=== PATIENT | female | born 1975 | race Caucasian/White ===

== ENCOUNTER 2016-04-18 22:28 | Emergency (ER) | payer OTHER ==
[2016-04-18] MEDS ORDERED: BENADRYL 50 MG/ML IV ONE ×2 (22:41→23:24)
[2016-04-18] MEDS ORDERED: solu-MEDROL 125 MG IV ONE (22:41)
[2016-04-18] MEDS ORDERED: solu-MEDROL 125 MG ONE (22:45)
[2016-04-18] MEDS ORDERED: BENADRYL 50 MG/ML ONE ×2 (22:45→23:38)
--- NOTE | 2016-04-18 22:48 | ERPHSYRPT ---
- History of Present Illness Time Seen by Provider: 04/18/16 22:35 Source: patient Exam Limitations: no limitations Patient Subjective Stated Complaint: "i started breaking out on monday. we have been cutting fire wood and think that i am reacting to something. today, i started having trouble breathing and feeling like throat is tight. so my made me come in" Triage Nursing Assessment: aox3, breathing unlabored, lungs clear a&p bilat, able to speak in complete setences, voice horse, skin pink warm dry with redness noted to face and swelling, red raides rash noted to upper chest, steady gait Physician History: 2 DAYS AGO PT WAS CUTTING FIREWOOD IN THE BACK YARD AND THE FOLLOWING DAY STARTED WITH A PRURITIC RASH ON THE FACE AND UPPER EXTREMITIES. 2 HOURS AGO PT STARTED WITH SHORTNESS OF AIR, HOARSENESS AND TIGHTNESS IN THE NECK. PT DENIES ABDOMINAL PAIN, NAUSEA, VOMITING, FEVER, CHEST PAIN. Allergies/Adverse Reactions: Sulfa (Sulfonamide Antibiotics) Allergy (Verified 04/18/16 22:34) seizure med? Allergy (Uncoded 03/09/16 15:17) Home Medications: Glipizide 5 mg [Glucotrol 5 MG] 5 mg PO UD 07/25/14 [History] Metformin HCl 1000 mg [Glucophage 1000 MG] 1,000 mg PO BID 07/25/14 [History] Sitagliptin Phosphate [Januvia] 100 mg PO HS 10/07/14 [History] Topiramate 100 mg [Topamax 100 MG] 200 mg PO BID 10/07/14 [History] Cetirizine HCl [Zyrtec] 10 mg PO DAILY 04/18/16 [History] Hx Tetanus, Diphtheria Vaccination/Date Given: Yes Hx Influenza Vaccination/Date Given: No Hx Pneumococcal Vaccination/Date Given: No - Review of Systems Constitutional: No Fever Ears, Nose, & Throat: Hoarse, Other (TIGHTNESS IN THE NECK) Respiratory: Dyspnea Abdominal/Gastrointestinal: No Abdominal Pain, No Nausea, No Vomiting Skin: Rash All Other Systems: Reviewed and Negative - Past Medical History Pertinent Past Medical History: Yes Neurological History: Seizures ENT History: No Pertinent History Cardiac History: Other Respiratory History: No Pertinent History Endocrine Medical History: Diabetes Type II Musculoskeletal History: No Pertinent History GI Medical History: No Pertinent History History: No Pertinent History Psycho-Social History: No Pertinent History Female Reproductive Disorders: No Pertinent History Other Medical History: heart murmer - Past Surgical History Past Surgical History: Yes Neuro Surgical History: No Pertinent History Cardiac: No Pertinent History Respiratory: No Pertinent History Gastrointestinal: Cholecystectomy Genitourinary: No Pertinent History Musculoskeletal: No Pertinent History Female Surgical History: Section Other Surgical History: c-sec x2 - Social History Smoking Status: Never smoker Exposure to second hand smoke: No Drug Use: none Patient Lives Alone: No - Female History Hx Last Menstrual Period: 04/05/16 - Nursing Vital Signs Nursing Vital Signs: Initial Vital Signs Temperature 98.0 F Temperature Source Oral Pulse Rate 94 Respiratory Rate 12 Blood Pressure [Right Arm] 111/79 Pain Intensity 6 - Physical Exam General Appearance: alert Eye Exam: PERRL/EOMI Ears, Nose, Throat Exam: TMs normal, pharynx normal, moist mucous membranes, other (VOICE HOARSE) Neck Exam: full range of motion Respiratory Exam: lungs clear Cardiovascular Exam: normal heart sounds Gastrointestinal/Abdomen Exam: soft, normal bowel sounds Back Exam: normal range of motion Extremity Exam: No swelling Neurologic Exam: alert, cooperative Skin Exam: rash (ERYTHEMATOUS MACULOPAPULAR RASH OVER THE UPPER EXTREMITIES, FACE AND NECK.) SpO2 Interpretation: normal SpO2: 97 Oxygen Delivery: Room Air - Course Nursing assessment & vital signs reviewed: Yes Ordered Tests: Active Orders 24 hr Category Date Time Status IV Insertion STAT Care 04/18/16 22:41 Active Respiratory Nebulizer STAT RT 04/18/16 23:25 Completed Medication Summary Discontinued Medications Generic Name Dose Route Start Last Admin Trade Name Butchq PRN Reason Stop Dose Admin Diphenhydramine HCl 50 mg 04/18/16 22:41 04/18/16 22:46 Benadryl 50 Mg/Ml IV 04/18/16 22:42 50 mg STAT ONE Administration Diphenhydramine HCl Confirm 04/18/16 22:45 Benadryl 50 Mg/Ml Administered 04/18/16 22:46 Dose 50 mg .ROUTE .STK-MED ONE Diphenhydramine HCl 50 mg 04/18/16 23:24 04/18/16 23:40 Benadryl 50 Mg/Ml IV 04/18/16 23:25 50 mg STAT ONE Administration Diphenhydramine HCl Confirm 04/18/16 23:38 Benadryl 50 Mg/Ml Administered 04/18/16 23:39 Dose 50 mg .ROUTE .STK-MED ONE Epinephrine 0.5 ml 04/18/16 23:25 04/18/16 23:37 Racepinephrine Inh Solution 2.25% IH 04/18/16 23:26 0.5 ml STAT ONE Administration Epinephrine Confirm 04/18/16 23:35 Racepinephrine Inh Solution 2.25% Administered 04/18/16 23:36 Dose 0.5 ml IH .STK-MED ONE Methylprednisolone Sodium Succinate 125 mg 04/18/16 22:41 04/18/16 22:46 Solu-Medrol 125 Mg IV 04/18/16 22:42 125 mg STAT ONE Administration Methylprednisolone Sodium Succinate Confirm 04/18/16 22:45 Solu-Medrol 125 Mg Administered 04/18/16 22:46 Dose 125 mg .ROUTE .STK-MED ONE Sodium Chloride Confirm 04/18/16 23:35 Sodium Chloride 3 Ml Ud Nebules Administered 04/18/16 23:36 Dose 3 ml IH .STK-MED ONE - Progress Progress Note: 04/18/16 23:51 PT'S RASH IS LESS ERYTHEMATOUS AND PT IS LESS HOARSE. - Departure Time of Disposition: 23:56 Departure Disposition: Home Clinical Impression: ALLERGIC REACTION Condition: Fair Critical Care Time: No Referrals: TAYLER RAYMOND [Primary Care Provider] - Instructions: General Allergic Reactions Additional Instructions: FOLLOW UP WITH PRIVATE DOCTOR TOMORROW. Prescriptions: Hydroxyzine HCl 25 mg [Atarax 25 mg] 50 mg PO Q4H PRN PRN #30 tablet PRN Reason: Itching Methylprednisolone Packet [Medrol Dosepack] 4 mg PO UD #30 packet
[2016-04-18] MEDS ORDERED: Racepinephrine INH Solution 2.25% IH ONE ×2 (23:25→23:35)
[2016-04-18] MEDS ORDERED: Sodium Chloride 3 ML UD NEBULES IH ONE (23:35)
[2016-04-18 23:54] VITALS: O2SAT 97
[2016-04-19 00:16] VITALS: BP 109/82; PULSE 95
== END 2016-04-19 00:11 | disposition home or self-care (01) ==
LOC: ED 22:28
DX: T78.40XA Allergy, unspecified, initial encounter (principal); R21 Rash and other nonspecific skin eruption
CPT/HCPCS: 36000; 94640; 96374; 96375; 96376; 99283; 99284; J1200; J2930

== ENCOUNTER 2016-05-24 11:14 | Emergency (ER) | payer OTHER ==
[2016-05-24] MEDS ORDERED: Sodium Chloride 0.9% 1000 ML 1,000 ML IV STA (11:38)
--- NOTE | 2016-05-24 11:44 | ERPHSYRPT ---
- History of Present Illness Time Seen by Provider: 05/24/16 11:31 Source: patient, family Patient Subjective Stated Complaint: feels swollen all over for a week or so and has had high blood sugars for two days. was 411 at home this am. Triage Nursing Assessment: ambulated to room per self. skin w/d, color normal, resp easy. denies any symptoms related to high blood sugar. does c/o generalized swelling for a week. Physician History: CC: high sugar hX: 40 y/o patient of Dr Keen with type 2 diabetes. She has noted elevated sugars the past few days. No fevers. No sign of infection. Feels more tired than usual. No V/D. Normal urination. Takes januvia daily and metformin 1000 BID. Called office today and came to ER as sugar over 400. She was in ER in Apr for poison sherly and had steroids but that was a month ago. Timing/Duration: day(s) (few) Severity: moderate Allergies/Adverse Reactions: lamotrigine [From Lamictal] Allergy (Verified 05/24/16 11:29) Sulfa (Sulfonamide Antibiotics) Allergy (Verified 04/18/16 22:34) Home Medications: Metformin HCl 1000 mg [Glucophage 1000 MG] 1,000 mg PO BID 07/25/14 [History] Sitagliptin Phosphate [Januvia] 100 mg PO HS 10/07/14 [History] Topiramate 100 mg [Topamax 100 MG] 200 mg PO BID 10/07/14 [History] Cetirizine HCl [Zyrtec] 10 mg PO DAILY 04/18/16 [History] Paroxetine HCl [Paxil] 20 mg PO DAILY 05/24/16 [History] Hx Tetanus, Diphtheria Vaccination/Date Given: No Hx Influenza Vaccination/Date Given: No Hx Pneumococcal Vaccination/Date Given: No - Review of Systems Constitutional: Fatigue, Malaise, Weakness, No Fever, No Chills Eyes: No Symptoms Ears, Nose, & Throat: No Symptoms Respiratory: No Cough, No Dyspnea Cardiac: No Chest Pain Abdominal/Gastrointestinal: No Abdominal Pain, No Nausea, No Vomiting, No Diarrhea Genitourinary Symptoms: No Dysuria Musculoskeletal: No Back Pain, No Myalgias Skin: No Rash Neurological: No Vertigo All Other Systems: Reviewed and Negative - Past Medical History Pertinent Past Medical History: Yes Neurological History: Seizures ENT History: No Pertinent History Cardiac History: Other Respiratory History: No Pertinent History Endocrine Medical History: Diabetes Type II Musculoskeletal History: No Pertinent History GI Medical History: No Pertinent History History: No Pertinent History Psycho-Social History: No Pertinent History Female Reproductive Disorders: No Pertinent History Other Medical History: heart murmer - Past Surgical History Past Surgical History: Yes Neuro Surgical History: No Pertinent History Cardiac: No Pertinent History Respiratory: No Pertinent History Gastrointestinal: Cholecystectomy Genitourinary: No Pertinent History Musculoskeletal: No Pertinent History Female Surgical History: Section Other Surgical History: c-sec x2 - Social History Smoking Status: Never smoker Exposure to second hand smoke: No Drug Use: none Patient Lives Alone: No - Nursing Vital Signs Nursing Vital Signs: Initial Vital Signs Temperature 98.1 F Temperature Source Oral Pulse Rate 91 Respiratory Rate 16 Blood Pressure [Right Arm] 128/67 Pain Intensity 0 - Physical Exam General Appearance: alert Eye Exam: PERRL/EOMI Ears, Nose, Throat Exam: normal ENT inspection, moist mucous membranes Neck Exam: normal inspection, non-tender, supple Respiratory Exam: normal breath sounds, lungs clear Cardiovascular Exam: regular rate/rhythm, No murmur Gastrointestinal/Abdomen Exam: soft, No tenderness, No distention, No mass, No guarding Extremity Exam: normal inspection, normal range of motion Neurologic Exam: alert, oriented x 3, cooperative, sensation nml, No motor deficits Skin Exam: warm, dry, No rash SpO2 Interpretation: normal SpO2: 99 Oxygen Delivery: Room Air - Course Nursing assessment & vital signs reviewed: Yes Ordered Tests: Active Orders 24 hr Category Date Time Status Accucheck STAT Care 05/24/16 13:15 Active Clean Catch Urine Specimen STAT Care 05/24/16 11:38 Active IV Insertion STAT Care 05/24/16 11:38 Active CBC W DIFF Stat Lab 05/24/16 11:53 Completed CMP Stat Lab 05/24/16 11:53 Completed Glucose,Critical Care Urgent Lab 05/24/16 11:55 Completed UA W/ MICROSCOPIC Stat Lab 05/24/16 12:30 Completed VENOUS BLOOD GAS Urgent Lab 05/24/16 11:55 Completed Medication Summary Discontinued Medications Generic Name Dose Route Start Last Admin Trade Name Freq PRN Reason Stop Dose Admin Sodium Chloride 1,000 mls @ 999 mls/hr 05/24/16 11:38 03/21/17 12:05 Sodium Chloride 0.9% 1000 Ml IV 05/24/16 12:38 999 mls/hr .Q1H1M STA Administration Sodium Chloride Confirm 05/24/16 11:58 Sodium Chloride 0.9% 1000 Ml Administered 05/24/16 11:59 Dose 1,000 mls @ ud .ROUTE .STK-MED ONE Insulin Aspart 6 unit 05/24/16 12:10 05/24/16 12:21 Novolog Insulin SQ 05/24/16 12:11 6 unit STAT ONE Administration Insulin Aspart Confirm 05/24/16 12:13 Novolog Insulin Administered 05/24/16 12:14 Dose 6 unit .ROUTE .STK-MED ONE Lab/Rad Data: Laboratory Result Diagrams 05/24/16 11:53 05/24/16 11:53 Laboratory Results 05/24/16 05/24/16 05/24/16 Range/Units 12:30 11:55 11:53 WBC (4.0-10.5) K/mm3 RBC (4.1-5.4) M/mm3 Hgb (12.0-16.0) gm/dl Hct (35-47) % MCV (78-100) fl MCH (26-32) pg MCHC (32-36) g/dl RDW (11.5-14.0) % Plt Count (150-450) K/mm3 MPV (6-9.5) fl Gran % (36.0-66.0) % Lymphocytes % (24.0-44.0) % Monocytes % (0.0-12.0) % Eosinophils % (0.00-5.0) % Basophils % (0.0-0.4) % Basophils # (0-0.4) VBG pH 7.33 (7.32-7.42) VBG pCO2 at Pat Temp 38 L (42-55) mm/Hg VBG pO2 at Pat Temp 45 H (25-40) mm/Hg VBG HCO3 20.0 L (22-28) meq/L VBG O2 Sat (Tod) 85.2 L (95-100) VBG Base Excess -5.4 L (-2.0-2.0) VBG Hemoglobin 14.5 VBG Carboxyhemoglobin 2.2 (0.0-6.9) % T HGB POC Potassium 4.2 (3.5-5.1) Sodium 134 L (136-145) mEq/L Potassium 4.1 (3.5-5.1) mEq/L Chloride 103 (98-107) mEq/L Carbon Dioxide 20.3 L (21-32) mEq/L Anion Gap 14.8 (5-15) MEQ/L BUN 16 (9-20) mg/dL Creatinine 1.05 (0.55-1.30) mg/dl Estimated GFR > 60 ML/MIN Glucose 396 H 394 H (70-110) MG/DL Calcium 8.4 L (8.5-10.1) mg/dL Total Bilirubin 0.2 (0.2-1.0) mg/dL AST 20 (15-37) U/L ALT 42 (12-78) U/L Alkaline Phosphatase 72 (46-116) U/L Serum Total Protein 7.4 (6.4-8.2) gm/dL Albumin 3.5 (3.4-5.0) g/dL Ur Collection Type CLEAN CATCH Urine Color YELLOW (YELLOW) Urine Appearance CLEAR (CLEAR) Urine pH 7.0 (5-6) Ur Specific Bonham 1.015 (1.005-1.025) Urine Protein NEGATIVE (Negative) Urine Glucose (UA) >=1000 (NEGATIVE) mg/dL Urine Ketones NEGATIVE (NEGATIVE) Urine Nitrite NEGATIVE (NEGATIVE) Urine Bilirubin NEGATIVE (NEGATIVE) Urine Urobilinogen 0.2 (0-1) mg/dL Urine WBC (Auto) NEGATIVE (NEGATIVE) Urine RBC (Auto) SMALL (0-5) Kiet/ul Urine Microscopic RBC 2-5 (0-2) /HPF Urine Microscopic WBC 0-2 (0-5) /HPF Ur Epithelial Cells MODERATE (FEW) /HPF Urine Bacteria RARE (NEGATIVE) /HPF Specimen Received 05/24/16 1230 05/24/16 Range/Units 11:53 WBC 5.7 (4.0-10.5) K/mm3 RBC 4.81 (4.1-5.4) M/mm3 Hgb 13.8 (12.0-16.0) gm/dl Hct 41.1 (35-47) % MCV 85.4 (78-100) fl MCH 28.7 (26-32) pg MCHC 33.6 (32-36) g/dl RDW 14.8 H (11.5-14.0) % Plt Count 162 (150-450) K/mm3 MPV 10.8 H (6-9.5) fl Gran % 60.0 (36.0-66.0) % Lymphocytes % 27.9 (24.0-44.0) % Monocytes % 8.4 (0.0-12.0) % Eosinophils % 3.2 (0.00-5.0) % Basophils % 0.5 (0.0-0.4) % Basophils # 0.03 (0-0.4) VBG pH (7.32-7.42) VBG pCO2 at Pat Temp (42-55) mm/Hg VBG pO2 at Pat Temp (25-40) mm/Hg VBG HCO3 (22-28) meq/L VBG O2 Sat (Tdo) (95-100) VBG Base Excess (-2.0-2.0) VBG Hemoglobin VBG Carboxyhemoglobin (0.0-6.9) % T HGB POC Potassium (3.5-5.1) Sodium (136-145) mEq/L Potassium (3.5-5.1) mEq/L Chloride (98-107) mEq/L Carbon Dioxide (21-32) mEq/L Anion Gap (5-15) MEQ/L BUN (9-20) mg/dL Creatinine (0.55-1.30) mg/dl Estimated GFR ML/MIN Glucose (70-110) MG/DL Calcium (8.5-10.1) mg/dL Total Bilirubin (0.2-1.0) mg/dL AST (15-37) U/L ALT (12-78) U/L Alkaline Phosphatase (46-116) U/L Serum Total Protein (6.4-8.2) gm/dL Albumin (3.4-5.0) g/dL Ur Collection Type Urine Color (YELLOW) Urine Appearance (CLEAR) Urine pH (5-6) Ur Specific Bonham (1.005-1.025) Urine Protein (Negative) Urine Glucose (UA) (NEGATIVE) mg/dL Urine Ketones (NEGATIVE) Urine Nitrite (NEGATIVE) Urine Bilirubin (NEGATIVE) Urine Urobilinogen (0-1) mg/dL Urine WBC (Auto) (NEGATIVE) Urine RBC (Auto) (0-5) Kiet/ul Urine Microscopic RBC (0-2) /HPF Urine Microscopic WBC (0-5) /HPF Ur Epithelial Cells (FEW) /HPF Urine Bacteria (NEGATIVE) /HPF Specimen Received - Progress Progress Note: 05/24/16 11:44 Pt has no sign of infection. Will check sugar and screen for DKA. Will need medication adjustment and office follow up with Dr Keen. Plan discussed with pt and family. 05/24/16 13:23 Pt has no sign of infection. Not in DKA. Sugar better with IVF and insulin. Appt tomorrow with Dr Xiong set up. Spoke to Dr Keen and will continue normal medications until appt tomorrow. Counseled pt/family regarding: lab results, diagnosis, need for follow-up - Departure Time of Disposition: 13:24 Departure Disposition: Home Clinical Impression: Type 2 diabetes mellitus, uncontrolled Condition: Fair Critical Care Time: No Referrals: TAYLER KEEN [Primary Care Provider] - Instructions: Hyperglycemia -- Adult, Diabetes Type 2 Additional Instructions: See Dr Xiong at [facility] tomorrow at 11:15AM. Take your normal medications. Eat diabetic diet. Watch your sugars.
[2016-05-24 11:56] LABS: BASOPHIL % 0.5 % (0.0-0.4); Eosinophil % 3.2 % (0.00-5.0); Lymphocytes % 27.9 % (24.0-44.0); Mean Cell Volume 85.4 fl (78-100); Mean Corpuscular Hemoglobin 28.7 pg (26-32); Mean Platelet Volume 10.8 fl (6-9.5); Monocytes % 8.4 % (0.0-12.0); Platelet Count 162 K/mm3 (150-450); Red Blood Count 4.81 M/mm3 (4.1-5.4); Red Cell Distribution Width 14.8 % (11.5-14.0); White Blood Count 5.7 K/mm3 (4.0-10.5)
[2016-05-24] MEDS ORDERED: Sodium Chloride 0.9% 1000 ML 1,000 ML ONE (11:58)
[2016-05-24 12:03] LABS: VBG BASE EXCESS -5.4 (-2.0-2.0); VBG CARBOXYHEMOGLOBIN 2.2 % T HGB (0.0-6.9); VBG HEMOGLOBIN 14.5; VBG O2 SATURATION 85.2 (95-100); VBG POTASSIUM 4.2 (3.5-5.1); VBG pH 7.33 (7.32-7.42)
[2016-05-24] MEDS ORDERED: NovoLOG Insulin SQ ONE (12:10)
[2016-05-24] MEDS ORDERED: NovoLOG Insulin ONE (12:13)
[2016-05-24 12:16] LABS: ALBUMIN 3.5 g/dL (3.4-5.0); ALKALINE PHOSPHATASE 72 U/L (46-116); ANION GAP 14.8 MEQ/L (5-15); BILIRUBIN,TOTAL 0.2 mg/dL (0.2-1.0); BLOOD UREA NITROGEN 16 mg/dL (9-20); CHLORIDE 103 mEq/L (98-107); Carbon Dioxide 20.3 mEq/L (21-32); Glucose 394 MG/DL (70-110); Potassium 4.1 mEq/L (3.5-5.1); SGOT/AST 20 U/L (15-37); SGPT/ALT 42 U/L (12-78); SODIUM 134 mEq/L (136-145); Total Protein 7.4 gm/dL (6.4-8.2)
[2016-05-24 12:54] LABS: COMPLETE URINE MICROSCOPIC? YES; Collection Type CLEAN CATCH
[2016-05-24 12:58] VITALS: O2SAT 99
[2016-05-24 13:01] LABS: Bacteria RARE /HPF (NEGATIVE); Epithelial Cells MODERATE /HPF (FEW); WBC 0-2 /HPF (0-5)
[2016-05-24 13:18] VITALS: BP 128/67; PULSE 91
== END 2016-05-24 13:35 | disposition home or self-care (01) ==
LOC: ED 11:14
DX: E11.65 Type 2 diabetes mellitus with hyperglycemia (principal); R53.83 Other fatigue; R53.81 Other malaise; R53.1 Weakness; Z79.84 Long term (current) use of oral hypoglycemic drugs
CPT/HCPCS: 36000; 36415; 80053; 81000; 82805; 82947; 82962; 85025; 96360; 99284; A9270-GY

== ENCOUNTER 2017-08-01 14:11 | Emergency (ER) | payer OTHER ==
--- NOTE | 2017-08-01 15:21 | ERPHSYRPT ---
- History of Present Illness Time Seen by Provider: 08/01/17 15:16 Source: patient Exam Limitations: no limitations Patient Subjective Stated Complaint: toe r c/o right knee injury states was getting in a truck 3 weeks ago and heard knee pop. pt states pain is progressively worse Triage Nursing Assessment: Right knee pain and injury pt has no noticable swelling noted to area. Slight redness noted to back of knee no warmth to area. pt states only able to place light pressure to lower ext. pt able to ambulate though gaurding area Physician History: 41-year-old white female arrives with complaint of right knee pain for 3 weeks. According to the patient she was getting into a truck 3 weeks ago felt pop in her right knee, Patient is complaining of pain in the right knee worse with walking symptoms for 3 weeks. Past medical history includes seizures, diabetes, heart murmur Past surgical history includes cholecystectomy and patient states she is on Mirena Method of Injury: other (getting into a truck 3 weeks ago and felt a pop) Occurred: other (3 weeks ago) Quality: constant Severity of Pain-Max: moderate Severity of Pain-Current: mild Lower Extremities Pain: knee: right Modifying Factors: Improves With: movement Associated Symptoms: other (pain with walking) Allergies/Adverse Reactions: lamotrigine [From Lamictal] Allergy (Verified 05/24/16 11:29) Sulfa (Sulfonamide Antibiotics) Allergy (Verified 04/18/16 22:34) Home Medications: Metformin HCl 1000 mg [Glucophage 1000 MG] 1,000 mg PO BID 07/25/14 [History] Sitagliptin Phosphate [Januvia] 100 mg PO HS 10/07/14 [History] Topiramate 100 mg [Topamax 100 MG] 200 mg PO BID 10/07/14 [History] Cetirizine HCl [Zyrtec] 10 mg PO DAILY 04/18/16 [History] Paroxetine HCl [Paxil] 20 mg PO DAILY 05/24/16 [History] Glyburide 5 mg [Micronase 5 MG] 5 mg PO DAILY 08/01/17 [History] Hx Tetanus, Diphtheria Vaccination/Date Given: No Hx Influenza Vaccination/Date Given: No Hx Pneumococcal Vaccination/Date Given: No - Review of Systems Constitutional: No Fever, No Chills Eyes: No Symptoms Ears, Nose, & Throat: No Symptoms Respiratory: No Cough, No Dyspnea Cardiac: No Chest Pain, No Edema, No Syncope Abdominal/Gastrointestinal: No Abdominal Pain, No Nausea, No Vomiting, No Diarrhea Genitourinary Symptoms: No Dysuria Musculoskeletal: Joint Pain (pain in right knee for 3 weeks) Skin: No Rash Neurological: No Dizziness, No Focal Weakness, No Sensory Changes Psychological: No Symptoms Endocrine: No Symptoms All Other Systems: Reviewed and Negative - Past Medical History Pertinent Past Medical History: Yes Neurological History: Seizures ENT History: No Pertinent History Cardiac History: Other Respiratory History: No Pertinent History Endocrine Medical History: Diabetes Type II Musculoskeletal History: No Pertinent History GI Medical History: No Pertinent History History: No Pertinent History Psycho-Social History: No Pertinent History Female Reproductive Disorders: No Pertinent History Other Medical History: heart murmer - Past Surgical History Past Surgical History: Yes Neuro Surgical History: No Pertinent History Cardiac: No Pertinent History Respiratory: No Pertinent History Gastrointestinal: Cholecystectomy Genitourinary: No Pertinent History Musculoskeletal: No Pertinent History Female Surgical History: Section Other Surgical History: c-sec x2 - Social History Smoking Status: Never smoker Exposure to second hand smoke: No Drug Use: none Patient Lives Alone: No - Female History Hx Last Menstrual Period: 07/24/17 Hx Now: No - Nursing Vital Signs Nursing Vital Signs: Initial Vital Signs Temperature 98.1 F 08/01/17 14:19 Pulse Rate 100 H 08/01/17 14:19 Respiratory Rate 18 08/01/17 14:19 Blood Pressure 150/95 08/01/17 14:19 O2 Sat by Pulse Oximetry 99 08/01/17 14:19 Pain Scale Pain Intensity 8 - Physical Exam General Appearance: other (well-developed obese white female does not appear to be in acute distress) Eyes, Ears, Nose, Throat Exam: moist mucous membranes Neck Exam: non-tender, supple Cardiovascular/Respiratory Exam: chest non-tender, normal breath sounds, regular rate/rhythm, no respiratory distress Gastrointestinal/Abdominal Exam: non-tender, guarding Back Exam: normal inspection, No vertebral tenderness Hips Exam: bilateral: non-tender, normal inspection, normal range of motion, no evidence of injury Legs Exam: bilateral leg: non-tender, normal inspection, normal range of motion , no evidence of injury Knees Exam: right knee: other (right knee tender with palpation and movement anteriorly and posteriorly right knee stable to anterior drawer, posterior drawer, MCL stress, LCL stress), left knee: non-tender, normal inspection, normal range of motion, no evidence of injury Ankle Exam: bilateral ankle: non-tender, normal inspection, normal range of motion, no evidence of injury Foot Exam: bilateral foot: non-tender, normal inspection, normal range of motion , no evidence of injury Neuro/Tendon Exam: normal sensation, normal motor functions Mental Status Exam: alert, oriented x 3, cooperative Skin Exam: normal color, warm, dry SpO2 Interpretation: normal (99%) SpO2: 99 Oxygen Delivery: Room Air - Course Nursing assessment & vital signs reviewed: Yes - Radiology Exams Right Knee X-ray Interpretation: Interpreted by me, Negative, No Fracture, No Subluxation Ordered Tests: Active Orders 24 hr Category Date Time Status Immobilizer STAT Care 08/01/17 16:27 Active KNEE (3 VIEWS) Stat Exams 08/01/17 15:17 Taken - Progress Progress: improved Progress Note: 08/01/17 16:28 41-year-old white female arrives with complaint of right knee pain for 3 weeks. She states she injured her right knee getting into a truck. On physical examination I do not see obvious swelling to the right knee there is tenderness with movement at the right knee joint right knee is stable to anterior drawer posterior drawer medial collateral ligament stress lateral collateral ligament stress. The dorsal pedal posterior tibial pulses are intact and symmetrical 2 over 4. The patient did walk into the the emergency room. Patient is tender with palpation on the anterior knee posterior knee. X-ray of the right knee no fracture no dislocation. Will go ahead and place a right knee immobilizer. Patient has been taking ibuprofen for pain Will change to Naprosyn. Patient is to ice and elevate her right knee 24-48 hours. She is to use the right knee immobilizer. She is to follow-up with her family doctor symptoms are worse, no better in 48 hours, or persist longer than one week. Given the duration of the patient's symptoms is likely that she will need to follow-up with her family doctor. - Departure Time of Disposition: 16:29 Departure Disposition: Home Clinical Impression: Right knee pain Qualifiers: Chronicity: acute Qualified Code(s): M25.561 - Pain in right knee Strain of right knee Qualifiers: Encounter type: initial encounter Qualified Code(s): S86.911A - Strain of unspecified muscle(s) and tendon(s) at lower leg level, right leg, initial encounter Condition: Fair Critical Care Time: No Referrals: TAYLER RAYMOND [Primary Care Provider] - Instructions: Knee Sprain (DC), Knee Pain (DC) Additional Instructions: Return home. Ice and elevate your right knee 24-48 hours. Stop Advil. Naprosyn 500 mg orally twice a day as needed for pain #20/ Follow-up with your family doctor if symptoms are worse, no better in 48 hours, or persist longer than one week. Return for acute distress or for severe symptoms. Prescriptions: Naproxen 500 mg [Naprosyn 500 MG] 500 mg PO BID #20 tablet
[2017-08-01 17:18] VITALS: BP 126/86; PULSE 86; O2SAT 100
--- NOTE | 2017-08-01 20:45 | XRAY ---
Indication: Posterior knee pain. No known injury. Comparison: July 25, 2014. 3 views of the right knee again demonstrates small nonspecific suprapatellar effusion. No new/acute bony, articular, or soft tissue abnormalities.
== END 2017-08-01 17:34 | disposition home or self-care (01) ==
LOC: ED 14:11
DX: M25.561 Pain in right knee (principal); S86.911A Strain of unspecified muscle(s) and tendon(s) at lower leg level, right leg, initial encounter; Z79.899 Other long term (current) drug therapy
CPT/HCPCS: 73562; 99283; L1830

== ENCOUNTER 2018-05-25 16:23 | Observation (INO) | payer OTHER ==
[2018-05-25] MEDS ORDERED: BENADRYL 50 MG/ML IM ONE (16:34)
[2018-05-25] MEDS ORDERED: Sodium Chloride 0.9% 1000 ML 1,000 ML IV STA ×2 (16:34→18:18)
[2018-05-25] MEDS ORDERED: solu-MEDROL 125 MG IV ONE (16:34)
[2018-05-25] MEDS ORDERED: solu-MEDROL 125 MG ONE (16:39)
[2018-05-25] MEDS ORDERED: Sodium Chloride 0.9% 1000 ML 1,000 ML ONE ×2 (16:39→18:23)
[2018-05-25] MEDS ORDERED: BENADRYL 50 MG/ML ONE (16:39)
--- NOTE | 2018-05-25 16:43 | ERPHSYRPT ---
- History of Present Illness Time Seen by Provider: 05/25/18 16:37 Source: patient Exam Limitations: no limitations Patient Subjective Stated Complaint: patient started taking cephalexin today took dose @ 6 and at noon then started having tightness in chest and throat, called dr martin to come here thinks she having allergic reaction to new antibiotic Triage Nursing Assessment: pt alert nad orientedx3, able to ambulate by self, gait is steady, patient states she feels like her throat is swelling up and he chest is very tight. lung sounds clear, , no hives or swelling of lips or tongue noted, patient has some redness on chest , pulse sequal bialteral radius , skin warm dry and intact Physician History: 42-year-old white female with history of seizures, diabetes, heart murmur who states she has been placed on Keflex secondary to UTI. She states she took a Keflex tablet this morning at 6:00 took another one at noon and then approximately 1-1/2 hours ago she began to have tightness in her chest and felt like she was having trouble swallowing. She is not complaining of shortness of breath she has no abdominal pain nausea vomiting. This is allergic to the past medical history includes seizures, diabetes, heart murmur Past surgical history includes cholecystectomy, , tubal ligation social history, patient denies tobacco, alcohol, or illicit drug use. Timing/Duration: today (1-1/2 hours ago) Severity: moderate Modifying Factors: Improves With: medication (patient had taken Keflex at 6 AM and at noon). Worsens With: eating, immobilization, movement, acetaminophen, ibuprofen Associated Symptoms: chest pain (tightness in chest), other (patient feels like she is having a difficult time swallowing), No nausea, No vomiting, No abdominal pain, No shortness of breath, No heartburn, No diaphoresis, No cough, No chills, No fever, No headaches, No loss of appetite, No malaise, No rash, No syncope, No seizure, No weakness Allergies/Adverse Reactions: lamotrigine [From Lamictal] Allergy (Verified 05/24/16 11:29) Sulfa (Sulfonamide Antibiotics) Allergy (Verified 04/18/16 22:34) Home Medications: Metformin HCl 1000 mg [Glucophage 1000 MG] 1,000 mg PO BID 07/25/14 [History] Sitagliptin Phosphate [Januvia] 100 mg PO HS 10/07/14 [History] Topiramate 100 mg [Topamax 100 MG] 200 mg PO BID 10/07/14 [History] Cetirizine HCl [Zyrtec] 10 mg PO DAILY 04/18/16 [History] Paroxetine HCl [Paxil] 20 mg PO DAILY 05/24/16 [History] Glyburide 5 mg [Micronase 5 MG] 5 mg PO DAILY 08/01/17 [History] Hx Tetanus, Diphtheria Vaccination/Date Given: No Hx Influenza Vaccination/Date Given: No Hx Pneumococcal Vaccination/Date Given: No Immunizations Up to Date: No - Review of Systems Constitutional: No Fever, No Chills Eyes: No Symptoms Ears, Nose, & Throat: Other (patient feels like she is having a difficult time swallowing.), No Ear Pain, No Ear Discharge, No Hearing Changes, No Tinnitus, No Nose Pain, No Nose Congestion, No Nose Discharge, No Sinus Drainage, No Epistaxis, No Mouth Pain, No Mouth Swelling, No Loose Teeth, No Throat Pain, No Throat Swelling, No Hoarse, No Painful Swallowing, No Snoring, No Stridor Respiratory: Other (tightness in chest worse with breathing), No Cough, No Dyspnea Cardiac: Chest Pain (Tightness in chestworse with breathing), No Edema, No Palpitations, No Syncope, No Orthopnea Abdominal/Gastrointestinal: No Abdominal Pain, No Nausea, No Vomiting, No Diarrhea Genitourinary Symptoms: No Dysuria Musculoskeletal: No Back Pain, No Neck Pain Skin: No Rash Neurological: No Dizziness, No Focal Weakness, No Sensory Changes Psychological: No Symptoms Endocrine: No Symptoms All Other Systems: Reviewed and Negative - Past Medical History Pertinent Past Medical History: Yes Neurological History: Seizures ENT History: No Pertinent History Cardiac History: No Pertinent History Respiratory History: No Pertinent History Endocrine Medical History: Diabetes Type II Musculoskeletal History: No Pertinent History GI Medical History: No Pertinent History History: No Pertinent History Psycho-Social History: No Pertinent History Female Reproductive Disorders: No Pertinent History Other Medical History: heart murmer - Past Surgical History Past Surgical History: Yes Neuro Surgical History: No Pertinent History Cardiac: No Pertinent History Respiratory: No Pertinent History Gastrointestinal: Cholecystectomy Genitourinary: No Pertinent History Musculoskeletal: No Pertinent History Female Surgical History: Section Other Surgical History: c-sec x2 - Social History Smoking Status: Never smoker Exposure to second hand smoke: No Drug Use: none Patient Lives Alone: No - Female History Hx Now: No - Nursing Vital Signs Nursing Vital Signs: Initial Vital Signs Temperature 97.6 F 05/25/18 16:23 Pulse Rate 107 H 05/25/18 16:23 Respiratory Rate 20 05/25/18 16:23 Blood Pressure 161/93 05/25/18 16:23 O2 Sat by Pulse Oximetry 98 05/25/18 16:23 Pain Scale Pain Intensity 0 - Physical Exam General Appearance: mild distress, alert, anxiety Eye Exam: PERRL/EOMI, eyes nml inspection Ears, Nose, Throat Exam: normal ENT inspection, TMs normal, pharynx normal, moist mucous membranes Neck Exam: normal inspection, non-tender, supple, full range of motion Respiratory Exam: normal breath sounds, lungs clear, No respiratory distress Cardiovascular Exam: regular rate/rhythm, normal heart sounds, normal peripheral pulses, capillary refill <2 sec Gastrointestinal/Abdomen Exam: soft, normal bowel sounds, No tenderness, No mass Back Exam: normal inspection Extremity Exam: normal inspection, normal range of motion, pelvis stable Neurologic Exam: alert, oriented x 3, cooperative, chemical dependency professional II-XII nml as tested, normal mood/affect, nml cerebellar function, nml station & gait, sensation nml, No motor deficits Skin Exam: other (skin somewhat flushed in appearance) SpO2 Interpretation: normal (98%) SpO2: 98 - Course Nursing assessment & vital signs reviewed: Yes EKG Interpreted by Me: RATE (104 bpm), Sinus Tach, NORMAL AXIS, Other (EKG: Sinus tachycardia, 104 bpm, normal axis, moderate amount of artifact artifact, no acute ST or T wave changes compared to October 08, 2014) - Radiology Exams Chest X-ray Interpretation: Interpreted by me (chest x-ray: No acute disease process noted.) Ordered Tests: Active Orders 24 hr Category Date Time Status Accucheck STAT Care 05/25/18 16:34 Active EKG-ER Only STAT Care 05/25/18 16:34 Active IV Insertion STAT Care 05/25/18 16:34 Active Pulse Oximetry (ED) STAT Care 05/25/18 16:34 Active CHEST 1 VIEW (PORTABLE) Stat Exams 05/25/18 18:21 Ordered CBC W DIFF Stat Lab 05/25/18 Completed CMP Stat Lab 05/25/18 Completed TROPONIN Q3H Lab 05/25/18 Completed TROPONIN Q3H Lab 05/25/18 19:45 Ordered TROPONIN Q3H Lab 05/25/18 22:45 Ordered TROPONIN Q3H Lab 05/26/18 01:45 Ordered TROPONIN Q3H Lab 05/26/18 04:45 Ordered VENOUS BLOOD GAS Urgent Lab 05/25/18 16:48 Completed Medication Summary Generic Name Dose Route Start Last Admin Trade Name Freq PRN Reason Stop Dose Admin Sodium Chloride 1,000 mls @ 999 mls/hr 05/25/18 18:18 05/25/18 18:26 Sodium Chloride 0.9% 1000 Ml IV 05/25/18 19:18 999 mls/hr .Q1H1M STA Administration Discontinued Medications Generic Name Dose Route Start Last Admin Trade Name Freq PRN Reason Stop Dose Admin Aspirin 324 mg 05/25/18 18:18 05/25/18 18:26 Baby Aspirin 81 Mg Chew PO 05/25/18 18:19 324 mg STAT ONE Administration Aspirin Confirm 05/25/18 18:23 Baby Aspirin 81 Mg Chew Administered 05/25/18 18:24 Dose 324 mg .ROUTE .STK-MED ONE Diphenhydramine HCl 50 mg 05/25/18 16:34 05/25/18 16:43 Benadryl 50 Mg/Ml IM 05/25/18 16:35 50 mg STAT ONE Administration Diphenhydramine HCl Confirm 05/25/18 16:39 Benadryl 50 Mg/Ml Administered 05/25/18 16:40 Dose 50 mg .ROUTE .STK-MED ONE Sodium Chloride 1,000 mls @ 999 mls/hr 05/25/18 16:34 05/25/18 17:44 Sodium Chloride 0.9% 1000 Ml IV 05/25/18 17:34 Infused .Q1H1M STA Infusion Sodium Chloride Confirm 05/25/18 16:39 Sodium Chloride 0.9% 1000 Ml Administered 05/25/18 16:40 Dose 1,000 mls @ ud .ROUTE .STK-MED ONE Sodium Chloride Confirm 05/25/18 18:23 Sodium Chloride 0.9% 1000 Ml Administered 05/25/18 18:24 Dose 1,000 mls @ ud .ROUTE .STK-MED ONE Methylprednisolone Sodium Succinate 125 mg 05/25/18 16:34 05/25/18 16:43 Solu-Medrol 125 Mg IV 05/25/18 16:35 125 mg STAT ONE Administration Methylprednisolone Sodium Succinate Confirm 05/25/18 16:39 Solu-Medrol 125 Mg Administered 05/25/18 16:40 Dose 125 mg .ROUTE .STK-MED ONE Lab/Rad Data: Laboratory Result Diagrams 05/25/18 Unknown 05/25/18 Unknown Laboratory Results 05/25/18 05/25/18 05/25/18 Range/Units Unknown Unknown Unknown WBC 8.3 (4.0-10.5) K/mm3 RBC 4.72 (4.1-5.4) M/mm3 Hgb 13.8 (12.0-16.0) gm/dl Hct 41.3 (35-47) % MCV 87.5 (78-100) fl MCH 29.2 (26-32) pg MCHC 33.4 (32-36) g/dl RDW 14.0 (11.5-14.0) % Plt Count 211 (150-450) K/mm3 MPV 10.9 H (6-9.5) fl Gran % 65.3 (36.0-66.0) % Eos # (Auto) 0.20 (0-0.5) Absolute Lymphs (auto) 2.12 (1.0-4.6) Absolute Monos (auto) 0.51 (0.0-1.3) Lymphocytes % 25.6 (24.0-44.0) % Monocytes % 6.2 (0.0-12.0) % Eosinophils % 2.4 (0.00-5.0) % Basophils % 0.5 (0.0-0.4) % Absolute Granulocytes 5.41 (1.4-6.9) Basophils # 0.04 (0-0.4) pO2/FiO2 Ratio % VBG pH (7.32-7.42) VBG pCO2 at Pat Temp (42-55) mm/Hg VBG pO2 at Pat Temp (25-40) mm/Hg VBG HCO3 (22-28) meq/L VBG O2 Sat (Tod) (95-100) VBG Base Excess (-2.0-2.0) VBG Hemoglobin VBG Carboxyhemoglobin (0.0-6.9) % T HGB POC Potassium (3.5-5.1) Sodium 138 (137-145) mmol/L Potassium 4.1 (3.5-5.1) mmol/L Chloride 105 (98-107) mmol/L Carbon Dioxide 21 L (22-30) mmol/L Anion Gap 15.7 H (5-15) MEQ/L BUN 18 H (7-17) mg/dL Creatinine 0.75 (0.52-1.04) mg/dL Estimated GFR > 60.0 ML/MIN Glucose 295 H (74-106) mg/dL Calcium 8.9 (8.4-10.2) mg/dL Total Bilirubin 0.30 (0.2-1.3) mg/dL AST 20 (14-36) U/L ALT 29 (0-35) U/L Alkaline Phosphatase 107 (38-126) U/L Troponin I < 0.012 (0.000-0.034) ng/mL Serum Total Protein 7.3 (6.3-8.2) g/dL Albumin 4.2 (3.5-5.0) g/dL 05/25/18 Range/Units 16:48 WBC (4.0-10.5) K/mm3 RBC (4.1-5.4) M/mm3 Hgb (12.0-16.0) gm/dl Hct (35-47) % MCV (78-100) fl MCH (26-32) pg MCHC (32-36) g/dl RDW (11.5-14.0) % Plt Count (150-450) K/mm3 MPV (6-9.5) fl Gran % (36.0-66.0) % Eos # (Auto) (0-0.5) Absolute Lymphs (auto) (1.0-4.6) Absolute Monos (auto) (0.0-1.3) Lymphocytes % (24.0-44.0) % Monocytes % (0.0-12.0) % Eosinophils % (0.00-5.0) % Basophils % (0.0-0.4) % Absolute Granulocytes (1.4-6.9) Basophils # (0-0.4) pO2/FiO2 Ratio 21.0 % VBG pH 7.33 (7.32-7.42) VBG pCO2 at Pat Temp 43 (42-55) mm/Hg VBG pO2 at Pat Temp 38 (25-40) mm/Hg VBG HCO3 22.7 (22-28) meq/L VBG O2 Sat (Tod) 78.0 L (95-100) VBG Base Excess -3.3 L (-2.0-2.0) VBG Hemoglobin 14.5 VBG Carboxyhemoglobin 3.3 (0.0-6.9) % T HGB POC Potassium 4.0 (3.5-5.1) Sodium (137-145) mmol/L Potassium (3.5-5.1) mmol/L Chloride (98-107) mmol/L Carbon Dioxide (22-30) mmol/L Anion Gap (5-15) MEQ/L BUN (7-17) mg/dL Creatinine (0.52-1.04) mg/dL Estimated GFR ML/MIN Glucose (74-106) mg/dL Calcium (8.4-10.2) mg/dL Total Bilirubin (0.2-1.3) mg/dL AST (14-36) U/L ALT (0-35) U/L Alkaline Phosphatase (38-126) U/L Troponin I (0.000-0.034) ng/mL Serum Total Protein (6.3-8.2) g/dL Albumin (3.5-5.0) g/dL - Progress Progress: improved Progress Note: 05/25/18 18:19 Patient with EKG that shows sinus tachycardia 10 4 bpm normal axis no acute ST or T wave changes there was a moderate amount of artifact Patient with a glucose of 295 on her chemistry remainder of chemistry essentially normal anion gap was slightly elevated at 15.7 patient's troponin within normal limits Patient was given Benadryl 50 mg IM Solu-Medrol 125 mg IV. And started on normal saline given 1 L. Patient was rechecked she continued to complain of chest tightness. I called Dr. Casiano will go ahead and give patient a second liter of normal saline, will give patient aspirin 324 mg orally will obtain chest x-ray Will plan to place on observation for serial troponins. Impression 1. Chest pain 2. Rule out allergic reaction. Patient was not given epinephrine in view of her chest pain. - Departure Time of Disposition: 18:40 Departure Disposition: Observation Clinical Impression: Chest pain Qualifiers: Chest pain type: unspecified Qualified Code(s): R07.9 - Chest pain, unspecified Allergic reaction caused by a drug Qualifiers: Encounter type: initial encounter Qualified Code(s): T78.40XA - Allergy, unspecified, initial encounter Condition: Fair Critical Care Time: No Referrals: TAYLER RAYMOND [Primary Care Provider] -
[2018-05-25 16:50] LABS: VBG BASE EXCESS -3.3 (-2.0-2.0); VBG CARBOXYHEMOGLOBIN 3.3 % T HGB (0.0-6.9); VBG HCO3- 22.7 meq/L (22-28); VBG HEMOGLOBIN 14.5; VBG pH 7.33 (7.32-7.42)
[2018-05-25 17:06] LABS: BASOPHIL % 0.5 % (0.0-0.4); Basophil (Absolute #) 0.04 (0-0.4); Eosinophil % 2.4 % (0.00-5.0); Granulocyte Absolute (ANC) 5.41 (1.4-6.9); Granulocytes % 65.3 % (36.0-66.0); Hematocrit 41.3 % (35-47); Hemoglobin 13.8 gm/dl (12.0-16.0); Lymphocyte (Absolute #) 2.12 (1.0-4.6); Lymphocytes % 25.6 % (24.0-44.0); Mean Cell Volume 87.5 fl (78-100); Mean Corpuscular Hemoglobin 29.2 pg (26-32); Mean Corpuscular Hgb Concent. 33.4 g/dl (32-36); Mean Platelet Volume 10.9 fl (6-9.5); Monocyte (Absolute #) 0.51 (0.0-1.3); Monocytes % 6.2 % (0.0-12.0); Platelet Count 211 K/mm3 (150-450); Red Blood Count 4.72 M/mm3 (4.1-5.4); White Blood Count 8.3 K/mm3 (4.0-10.5)
[2018-05-25 17:16] LABS: ALBUMIN 4.2 g/dL (3.5-5.0); ALKALINE PHOSPHATASE 107 U/L (38-126); ANION GAP 15.7 MEQ/L (5-15); BLOOD UREA NITROGEN 18 mg/dL (7-17); CHLORIDE 105 mmol/L (98-107); Calcium 8.9 mg/dL (8.4-10.2); Carbon Dioxide 21 mmol/L (22-30); Creatinine 1 0.75 mg/dL (0.52-1.04); Glucose 295 mg/dL (74-106); Potassium 4.1 mmol/L (3.5-5.1); SGOT/AST 20 U/L (14-36); SGPT/ALT 29 U/L (0-35); SODIUM 138 mmol/L (137-145); Total Protein 7.3 g/dL (6.3-8.2)
[2018-05-25] MEDS ORDERED: BABY ASPIRIN 81 MG CHEW PO ONE (18:18)
[2018-05-25] MEDS ORDERED: BABY ASPIRIN 81 MG CHEW ONE (18:23)
[2018-05-25] MEDS ORDERED: BENADRYL 25 MG CAPSULE PO PRN (19:41)
[2018-05-25] MEDS ORDERED: NovoLOG Insulin SQ PRN (19:41)
[2018-05-25] MEDS: Sodium Chloride 0.9% 1000 ML 1,000 ML IV SCH (20:02)
[2018-05-25] MEDS ORDERED: Topamax 100 MG PO SCH (22:00)
[2018-05-25] MEDS ORDERED: Januvia 50 MG PO SCH (22:00)
[2018-05-25] MEDS ORDERED: CLARITIN 10 MG PO SCH (22:00)
[2018-05-26 04:20] VITALS: O2SAT 98
[2018-05-26] MEDS: Sodium Chloride 0.9% 1000 ML 1,000 ML IV SCH (06:10)
[2018-05-26 06:32] LABS: BASOPHIL % 0.2 % (0.0-0.4); Basophil (Absolute #) 0.02 (0-0.4); Eosinophil % 0.1 % (0.00-5.0); Eosinophil (Absolute #) 0.01 (0-0.5); Granulocyte Absolute (ANC) 8.37 (1.4-6.9); Granulocytes % 80.9 % (36.0-66.0); Hematocrit 40.6 % (35-47); Hemoglobin 13.3 gm/dl (12.0-16.0); Lymphocyte (Absolute #) 1.38 (1.0-4.6); Lymphocytes % 13.3 % (24.0-44.0); Mean Cell Volume 88.3 fl (78-100); Mean Corpuscular Hemoglobin 28.9 pg (26-32); Mean Corpuscular Hgb Concent. 32.8 g/dl (32-36); Mean Platelet Volume 10.9 fl (6-9.5); Monocyte (Absolute #) 0.57 (0.0-1.3); Monocytes % 5.5 % (0.0-12.0); Platelet Count 190 K/mm3 (150-450); Red Cell Distribution Width 13.9 % (11.5-14.0); White Blood Count 10.4 K/mm3 (4.0-10.5)
[2018-05-26 06:57] LABS: ALBUMIN 3.8 g/dL (3.5-5.0); ALKALINE PHOSPHATASE 91 U/L (38-126); ANION GAP 14.6 MEQ/L (5-15); BLOOD UREA NITROGEN 15 mg/dL (7-17); CHLORIDE 110 mmol/L (98-107); Calcium 8.4 mg/dL (8.4-10.2); Carbon Dioxide 21 mmol/L (22-30); Glucose 220 mg/dL (74-106); SGOT/AST 18 U/L (14-36); SGPT/ALT 27 U/L (0-35); SODIUM 142 mmol/L (137-145); Total Protein 6.7 g/dL (6.3-8.2)
[2018-05-26] MEDS ORDERED: Glucophage 500 MG PO SCH (08:00)
--- NOTE | 2018-05-26 09:05 | XRAY ---
Indication: Chest pain. Comparison: October 07, 2014. Portable apical lordotic chest again demonstrates normal heart and lungs. Bony thorax intact. No new/acute findings.
[2018-05-26] MEDS ORDERED: ECOTRIN 81 MG PO SCH (10:00)
[2018-05-26 10:09] VITALS: BP 134/71; PULSE 86
--- NOTE | 2018-05-28 14:17 | SSS ---
DISCHARGE DIAGNOSIS: ALLERGIC REACTION TO KEFLEX AND CHEST PAIN. HISTORY: This is a 42 year-old white female who had recent surgery for laparoscopic tubal. She apparently had been on a round of Keflex. She was actually on the second round for urinary tract infection and had developed some tightness across the chest and slight difficulty breathing. She presented to the emergency room and was admitted to the hospital for evaluation and management. HOSPITAL COURSE: The patient received serial troponins. She was feeling much better by the next morning. She received IV steroids and antihistamine treatment. She was felt to be ready for discharge home by the next morning. PAST MEDICAL/SURGICAL HISTORY: Again significant for recent laparoscopic tubal ligation. She apparently had urinary tract infection. Previously she has had section. She had seizures, diabetes mellitus type 2. HOME MEDICATIONS: Metformin, Januvia, Topamax, Zyrtec, Paxil, probiotic, sliding scale coverage of insulin and Basaglar in the evening. ALLERGIES: LAMICTAL, SULFA. PHYSICAL EXAMINATION: Revealed an obese white female currently in no distress. Her temperature was 97.6F, pulse 107, respiratory rate 20, blood pressure 161/93. O2 saturation 98% on room air. HEENT: Normocephalic, atraumatic. Pupils equal round reactive to light. Extraocular movements intact. Oropharynx is pink and moist. NECK: Supple without lymphadenopathy, thyromegaly or JVD. CHEST: Clear to auscultation. HEART: Regular rate and rhythm without murmurs, rubs or gallops. ABDOMEN: Soft. No palpable masses. The wounds appear to be well healed. EXTREMITIES: Without cyanosis, clubbing or edema. NEUROLOGIC: The patient is alert and oriented x3. No focal deficits are noted. LAB DATA AND TESTS: In the emergency room revealed a normal CBC. Her CMP showed a nonfasting sugar of 295, BUN 18, creatinine 0.75. Electrolytes were normal. Liver enzymes were normal. She did recently have a urine that showed 2 to 5 white blood cells per high power field. The patient's troponins have all been less than 0.012. It was felt that the patient was ready for discharge home at this time with instructions to use Benadryl if she has any recurrence of her symptoms and follow up with her family doctor here in the next week.
== END 2018-05-26 10:20 | disposition home or self-care (01) ==
LOC: ED 16:23 → MED SURG 19:15
PROVIDERS: ADMIT Family Medicine; ATTEND Family Medicine
DX: R07.9 Chest pain, unspecified (principal); R06.02 Shortness of breath; T36.1X5A Adverse effect of cephalosporins and other beta-lactam antibiotics, initial encounter; Z98.890 Other specified postprocedural states; E11.9 Type 2 diabetes mellitus without complications; Z79.899 Other long term (current) drug therapy
CPT/HCPCS: 36000; 36415; 71045; 80053; 82805; 82962; 84484; 85025; 93005; 93268; 96360; 96361; 96372; 96374; 99285; G0378; J1200; J2930; A9270-GY

== ENCOUNTER 2018-06-21 09:57 | Emergency (ER) | payer OTHER ==
[2018-06-21 10:14] VITALS: O2SAT 98
--- NOTE | 2018-06-21 10:25 | ERPHSYRPT ---
- History of Present Illness Time Seen by Provider: 06/21/18 10:23 Historian: patient Exam Limitations: no limitations Patient Subjective Stated Complaint: pt here for right sided abd pain that radiates to right flank, pain is daily for a year now, getiing worse and has seen dr for it, pt states she vomited last night less than 10, she states hitting down hurts her abd worse.no fever Triage Nursing Assessment: pt alert,walked in, resp easy, skin w/d/p. abd soft, no edema noted Physician History: 42 y/o obese white female presents with intermittent right upper quad pain that radiates into her back then down into right lower quadrant. recurrence 3 days ago and more severe than usual. pt is s/p cholecystectomy. pt has had vomiting a few times since last pm. pt took ibuprofen 600mg twice without benefit. Timing/Duration: day(s) (3) Activities at Onset: none Quality: sharpness, stabbing Abdominal Pain Onset Location: RUQ Pain Radiation: RLQ, flank (right side) Severity of Pain-Max: moderate Severity of Pain-Current: mild Modifying Factors: Improves With: vomiting Associated Symptoms: nausea, vomiting Previous symptoms: same symptoms as today Allergies/Adverse Reactions: cephalexin [From Keflex] Allergy (Verified 06/21/18 10:14) lamotrigine [From Lamictal] Allergy (Verified 06/21/18 10:14) Sulfa (Sulfonamide Antibiotics) Allergy (Verified 06/21/18 10:14) Home Medications: Metformin HCl 1000 mg [Glucophage 1000 MG] 1,000 mg PO BID 07/25/14 [History] Sitagliptin Phosphate [Januvia] 100 mg PO HS 10/07/14 [History] Topiramate 100 mg [Topamax 100 MG] 200 mg PO BID 10/07/14 [History] Cetirizine HCl [Zyrtec] 10 mg PO HS 04/18/16 [History] Paroxetine HCl [Paxil] 20 mg PO DAILY 05/24/16 [History] Insulin Glargine,Hum.rec.anlog [Basaglar Kwikpen U-100] 20 units BID 05/25/18 [ History] Hx Tetanus, Diphtheria Vaccination/Date Given: No Hx Influenza Vaccination/Date Given: No Hx Pneumococcal Vaccination/Date Given: No Immunizations Up to Date: Yes - Review of Systems Constitutional: No Symptoms Eyes: No Symptoms Ears, Nose, & Throat: No Symptoms Respiratory: No Symptoms Cardiac: No Symptoms Abdominal/Gastrointestinal: Abdominal Pain, Nausea, Vomiting, No Diarrhea Genitourinary Symptoms: No Symptoms Musculoskeletal: No Symptoms Skin: No Symptoms Neurological: No Symptoms Psychological: No Symptoms Endocrine: No Symptoms Hematologic/Lymphatic: No Symptoms Immunological/Allergic: No Symptoms All Other Systems: Reviewed and Negative - Past Medical History Pertinent Past Medical History: Yes Neurological History: Seizures ENT History: No Pertinent History Cardiac History: No Pertinent History Respiratory History: No Pertinent History Endocrine Medical History: Diabetes Type II Musculoskeletal History: No Pertinent History GI Medical History: No Pertinent History History: No Pertinent History Psycho-Social History: Anxiety Female Reproductive Disorders: No Pertinent History Other Medical History: heart murmer - Past Surgical History Past Surgical History: Yes Neuro Surgical History: No Pertinent History Cardiac: No Pertinent History Respiratory: No Pertinent History Gastrointestinal: Cholecystectomy Genitourinary: No Pertinent History Musculoskeletal: No Pertinent History Female Surgical History: Section Other Surgical History: c-sec x2. tubal 05/04/18 pt states she had her tubes removed - Social History Smoking Status: Never smoker Exposure to second hand smoke: No Drug Use: none Patient Lives Alone: Yes - Female History Hx Last Menstrual Period: may 18 Hx Now: No - Nursing Vital Signs Nursing Vital Signs: Initial Vital Signs Temperature 98.2 F 06/21/18 10:08 Pulse Rate 108 H 06/21/18 10:08 Respiratory Rate 18 06/21/18 10:08 Blood Pressure 132/82 06/21/18 10:08 O2 Sat by Pulse Oximetry 98 06/21/18 10:08 Pain Scale Pain Intensity 6 - Physical Exam General Appearance: mild distress, alert, anxiety Eye Exam: PERRL/EOMI Ears, Nose, Throat Exam: normal ENT inspection, moist mucous membranes Neck Exam: normal inspection, non-tender, supple, full range of motion Respiratory Exam: normal breath sounds, lungs clear, airway intact, No chest tenderness, No respiratory distress Cardiovascular Exam: regular rate/rhythm, normal heart sounds, normal peripheral pulses Gastrointestinal/Abdomen Exam: soft, normal bowel sounds, tenderness (right upper and right lower), guarding, No rebound Pelvic Exam: not done Rectal Exam: not done Back Exam: normal inspection, normal range of motion, CVA tenderness, No vertebral tenderness Extremity Exam: normal inspection, normal range of motion, pelvis stable Neurologic Exam: alert, oriented x 3, 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, 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 Skin Exam: normal color, warm, dry Lymphatic Exam: No adenopathy SpO2 Interpretation: normal SpO2: 98 O2 Delivery: Room Air - Course Nursing assessment & vital signs reviewed: Yes Ordered Tests: Active Orders 24 hr Category Date Time Status ABDOMEN AND PELVIS W/0 CONTRAS [CT] Stat Exams 06/21/18 10:29 Completed AMYLASE Stat Lab 06/21/18 10:40 Completed CBC W DIFF Stat Lab 06/21/18 10:28 Completed CMP Stat Lab 06/21/18 10:40 Completed CULTURE,URINE Stat Lab 06/21/18 10:40 Received LIPASE Stat Lab 06/21/18 10:40 Completed Lactic Acid Stat Lab 06/21/18 10:53 Results UA W/RFX UR CULTURE Stat Lab 06/21/18 10:40 Completed Medication Summary Discontinued Medications Generic Name Dose Route Start Last Admin Trade Name Freq PRN Reason Stop Dose Admin Hydromorphone HCl 0.5 mg 06/21/18 10:31 06/21/18 10:47 Hydromorphone 1 Mg/Ml Ampule IV 06/21/18 10:32 0.5 mg STAT ONE Administration Hydromorphone HCl Confirm 06/21/18 10:43 Hydromorphone 1 Mg/Ml Ampule Administered 06/21/18 10:44 Dose 1 mg .ROUTE .STK-MED ONE Sodium Chloride 1,000 mls @ 999 mls/hr 06/21/18 10:31 06/21/18 12:12 Sodium Chloride 0.9% 1000 Ml IV 06/21/18 11:31 Infused .Q1H1M STA Infusion Sodium Chloride Confirm 06/21/18 10:43 Sodium Chloride 0.9% 1000 Ml Administered 06/21/18 10:44 Dose 1,000 mls @ ud .ROUTE .STK-MED ONE Ketorolac Tromethamine 30 mg 06/21/18 12:23 Toradol 30 Mg Injection IV 06/21/18 12:24 STAT ONE Ondansetron HCl 4 mg 06/21/18 10:31 06/21/18 10:47 Zofran 4 Mg/2 Ml Vial IV 06/21/18 10:32 4 mg STAT ONE Administration Ondansetron HCl Confirm 06/21/18 10:43 Zofran 4 Mg/2 Ml Vial Administered 06/21/18 10:44 Dose 4 mg .ROUTE .STK-MED ONE Lab/Rad Data: Laboratory Result Diagrams 06/21/18 10:28 06/21/18 10:40 Laboratory Results 06/21/18 06/21/18 06/21/18 Range/Units 10:53 10:40 10:40 WBC (4.0-10.5) K/mm3 RBC (4.1-5.4) M/mm3 Hgb (12.0-16.0) gm/dl Hct (35-47) % MCV (78-100) fl MCH (26-32) pg MCHC (32-36) g/dl RDW (11.5-14.0) % Plt Count (150-450) K/mm3 MPV (6-9.5) fl Gran % (36.0-66.0) % Eos # (Auto) (0-0.5) Absolute Lymphs (auto) (1.0-4.6) Absolute Monos (auto) (0.0-1.3) Lymphocytes % (24.0-44.0) % Monocytes % (0.0-12.0) % Eosinophils % (0.00-5.0) % Basophils % (0.0-0.4) % Absolute Granulocytes (1.4-6.9) Basophils # (0-0.4) Sodium 138 (137-145) mmol/L Potassium 3.7 (3.5-5.1) mmol/L Chloride 103 (98-107) mmol/L Carbon Dioxide 21 L (22-30) mmol/L Anion Gap 17.7 H (5-15) MEQ/L BUN 24 H (7-17) mg/dL Creatinine 1.43 H (0.52-1.04) mg/dL Estimated GFR 43.2 ML/MIN Glucose 296 H (74-106) mg/dL Lactic Acid 3.1 H (0.4-2.0) Calcium 9.7 (8.4-10.2) mg/dL Total Bilirubin 0.40 (0.2-1.3) mg/dL AST 27 (14-36) U/L ALT 31 (0-35) U/L Alkaline Phosphatase 80 (38-126) U/L Serum Total Protein 7.6 (6.3-8.2) g/dL Albumin 4.1 (3.5-5.0) g/dL Amylase 47 (30-110) U/L Lipase 63 (23-300) U/L Urine Color YELLOW (YELLOW) Urine Appearance SLIGHTLY CLOUDY (CLEAR) Urine pH 5.0 (5-6) Ur Specific [place] 1.025 (1.005-1.025) Urine Protein 100 (Negative) Urine Ketones TRACE (NEGATIVE) Urine Blood MODERATE (0-5) Kiet/ul Urine Nitrite NEGATIVE (NEGATIVE) Urine Bilirubin NEGATIVE (NEGATIVE) Urine Urobilinogen NEGATIVE (0-1) mg/dL Ur Leukocyte Esterase NEGATIVE (NEGATIVE) Urine WBC (Auto) 3-5 (0-5) /HPF Urine RBC (Auto) 6-10 (0-2) /HPF U Epithel Cells (Auto) FEW (FEW) /HPF Urine Bacteria (Auto) FEW (NEGATIVE) /HPF Urine Mucus (Auto) SLIGHT (NEGATIVE) /HPF Urine Culture Reflexed YES (NO) Urine Glucose >=500 (NEGATIVE) mg/dL 06/21/18 Range/Units 10:28 WBC 9.1 (4.0-10.5) K/mm3 RBC 4.80 (4.1-5.4) M/mm3 Hgb 14.1 (12.0-16.0) gm/dl Hct 40.7 (35-47) % MCV 84.8 (78-100) fl MCH 29.4 (26-32) pg MCHC 34.6 (32-36) g/dl RDW 14.3 H (11.5-14.0) % Plt Count 213 (150-450) K/mm3 MPV 11.1 H (6-9.5) fl Gran % 74.8 H (36.0-66.0) % Eos # (Auto) 0.03 (0-0.5) Absolute Lymphs (auto) 1.60 (1.0-4.6) Absolute Monos (auto) 0.63 (0.0-1.3) Lymphocytes % 17.7 L (24.0-44.0) % Monocytes % 7.0 (0.0-12.0) % Eosinophils % 0.3 (0.00-5.0) % Basophils % 0.2 (0.0-0.4) % Absolute Granulocytes 6.77 (1.4-6.9) Basophils # 0.02 (0-0.4) Sodium (137-145) mmol/L Potassium (3.5-5.1) mmol/L Chloride (98-107) mmol/L Carbon Dioxide (22-30) mmol/L Anion Gap (5-15) MEQ/L BUN (7-17) mg/dL Creatinine (0.52-1.04) mg/dL Estimated GFR ML/MIN Glucose (74-106) mg/dL Lactic Acid (0.4-2.0) Calcium (8.4-10.2) mg/dL Total Bilirubin (0.2-1.3) mg/dL AST (14-36) U/L ALT (0-35) U/L Alkaline Phosphatase (38-126) U/L Serum Total Protein (6.3-8.2) g/dL Albumin (3.5-5.0) g/dL Amylase (30-110) U/L Lipase (23-300) U/L Urine Color (YELLOW) Urine Appearance (CLEAR) Urine pH (5-6) Ur Specific [place] (1.005-1.025) Urine Protein (Negative) Urine Ketones (NEGATIVE) Urine Blood (0-5) Kiet/ul Urine Nitrite (NEGATIVE) Urine Bilirubin (NEGATIVE) Urine Urobilinogen (0-1) mg/dL Ur Leukocyte Esterase (NEGATIVE) Urine WBC (Auto) (0-5) /HPF Urine RBC (Auto) (0-2) /HPF U Epithel Cells (Auto) (FEW) /HPF Urine Bacteria (Auto) (NEGATIVE) /HPF Urine Mucus (Auto) (NEGATIVE) /HPF Urine Culture Reflexed (NO) Urine Glucose (NEGATIVE) mg/dL - Progress Progress: improved, pain not gone completely, re-examined Progress Note: 06/21/18 12:24 ct scan abd/pelvis-left ureterolithiasis with ureteral distension, mod hydronephrosis, and renal edema. Counseled pt/family regarding: lab results, diagnosis, need for follow-up, rad results - Departure Departure Disposition: Home Clinical Impression: Ureterolithiasis Condition: Stable Critical Care Time: No Referrals: TAYLER RAYMOND [Primary Care Provider] - Additional Instructions: drink plenty of fluids. add ibuprofen for pain. return to ED for worsening symptoms. Prescriptions: Hydrocodone/APAP 5-325 Tab^^^ [[place] 5-325 Tablet^^^] 1 tab PO Q6HPRN PRN #10 tablet MDD 6 PRN Reason: Pain
[2018-06-21] MEDS ORDERED: Sodium Chloride 0.9% 1000 ML 1,000 ML IV STA (10:31)
[2018-06-21] MEDS ORDERED: Zofran 4 MG/2 ML VIAL IV ONE (10:31)
[2018-06-21] MEDS ORDERED: Hydromorphone 1 mg/ml Ampule IV ONE (10:31)
[2018-06-21] MEDS ORDERED: Hydromorphone 1 mg/ml Ampule ONE (10:43)
[2018-06-21] MEDS ORDERED: Sodium Chloride 0.9% 1000 ML 1,000 ML ONE (10:43)
[2018-06-21] MEDS ORDERED: Zofran 4 MG/2 ML VIAL ONE (10:43)
[2018-06-21 10:48] LABS: BASOPHIL % 0.2 % (0.0-0.4); Basophil (Absolute #) 0.02 (0-0.4); Eosinophil % 0.3 % (0.00-5.0); Eosinophil (Absolute #) 0.03 (0-0.5); Granulocyte Absolute (ANC) 6.77 (1.4-6.9); Granulocytes % 74.8 % (36.0-66.0); Hematocrit 40.7 % (35-47); Hemoglobin 14.1 gm/dl (12.0-16.0); Lymphocytes % 17.7 % (24.0-44.0); Mean Cell Volume 84.8 fl (78-100); Mean Corpuscular Hemoglobin 29.4 pg (26-32); Mean Corpuscular Hgb Concent. 34.6 g/dl (32-36); Mean Platelet Volume 11.1 fl (6-9.5); Monocyte (Absolute #) 0.63 (0.0-1.3); Platelet Count 213 K/mm3 (150-450); Red Cell Distribution Width 14.3 % (11.5-14.0); White Blood Count 9.1 K/mm3 (4.0-10.5)
[2018-06-21 10:56] LABS: Appearance SLIGHTLY CLOUDY (CLEAR); Bacteria FEW /HPF (NEGATIVE); Bilirubin NEGATIVE (NEGATIVE); Blood MODERATE Ery/ul (0-5); Epithelial Cells FEW /HPF (FEW); Glucose >=500 mg/dL (NEGATIVE); Ketones TRACE (NEGATIVE); Leukocyte Esterase NEGATIVE (NEGATIVE); Mucus SLIGHT /HPF (NEGATIVE); Nitrite NEGATIVE (NEGATIVE); Protein,Urine Dip 100 (Negative); Specific Gravity 1.025 (1.005-1.025); Urobilinogen NEGATIVE mg/dL (0-1)
[2018-06-21 10:57] LABS: Lactic Acid 3.1 (0.4-2.0)
[2018-06-21 11:03] LABS: ALBUMIN 4.1 g/dL (3.5-5.0); ANION GAP 17.7 MEQ/L (5-15); BILIRUBIN,TOTAL 0.4 mg/dL (0.2-1.3); Calcium 9.7 mg/dL (8.4-10.2); Creatinine 1 1.43 mg/dL (0.52-1.04); Potassium 3.7 mmol/L (3.5-5.1); Total Protein 7.6 g/dL (6.3-8.2)
--- NOTE | 2018-06-21 11:46 | XRAY ---
Indication: Right flank pain and vomiting. Multiple contiguous axial images obtained through the abdomen and pelvis without contrast as ordered. Comparison: April 19, 2018. Lung bases remain clear. Heart is not enlarged. Noncontrasted stomach and bowel loops nonobstructed. Again normal appendix. Previous IUD has been removed. Very tiny cul-de-sac fluid presumed physiologic from rupture/leaking cyst. No walled off fluid collection or free air. Previous 4 mm left renal calculus has dislodged now seen distal left ureter calculus just proximal to the UVJ. Proximal left ureter is also distended up to 12 mm along with left renal edema, moderate hydronephrosis, and perinephric stranding consistent with obstructive uropathy. Stable fatty liver, 13.9 cm splenomegaly, and cholecystectomy clips. Remaining liver, pancreas, spleen, adrenal glands, right kidney, right ureter, bladder, uterus, and aorta appear unremarkable for noncontrast exam. Impression: 1. Previous 4 mm left renal calculus now seen distal left ureter producing obstructive uropathy as detailed. 2. Interval IUD removal. New tiny cul-de-sac fluid presumed physiologic. 3. Stable fatty liver and splenomegaly. CT DI 23.67
[2018-06-21] MEDS ORDERED: TORAdol 30 mg Injection IV ONE (12:23)
[2018-06-21] MEDS ORDERED: TORAdol 30 mg Injection ONE (12:32)
[2018-06-21 13:14] VITALS: BP 132/81; PULSE 94
== END 2018-06-21 13:00 | disposition home or self-care (01) ==
LOC: ED 09:57
DX: N20.1 Calculus of ureter (principal)
CPT/HCPCS: 36415; 74176; 80053; 81001; 82150; 83605; 83690; 85025; 87086; 96360; 96374; 96375; 99284; J1170; J1885; J2405

== ENCOUNTER 2018-07-13 15:24 | Emergency (ER) | payer OTHER ==
[2018-07-13] MEDS ORDERED: Adacel Vial IM ONE ×2 (15:44→15:49)
[2018-07-13] MEDS ORDERED: XYLOCAINE 2% HCL 20 ML MDV ONE (15:50)
--- NOTE | 2018-07-13 16:00 | ERPHSYRPT ---
- History of Present Illness Time Seen by Provider: 07/13/18 15:46 Source: patient Patient Subjective Stated Complaint: crush injury to right little finger on car frame. cut to pad of little finger Triage Nursing Assessment: crush injury to right 5th finger on car frame.. was moving a car to a trailer. noted avulsion to the pad opf the 5th finger. pain with movement. states finger is misformed due to an old injury. + cap refill Physician History: PATIENT SUSTAINED CRUSH INJURY TO HER RIGHT FINGER OFF CAR FRAME PRIOR TO ARRIVAL WITH LACERATION BELOW FINGER. Occurred: just prior to arrival Method of Injury: direct blow Quality: constant, stabbing Severity of Pain-Max: moderate Severity of Pain-Current: moderate Extremities Pain Location: 5th finger: right Modifying Factors: Improves With: movement Associated Symptoms: other (LACERATION) Allergies/Adverse Reactions: cephalexin [From Keflex] Allergy (Verified 06/21/18 10:14) lamotrigine [From Lamictal] Allergy (Verified 06/21/18 10:14) Sulfa (Sulfonamide Antibiotics) Allergy (Verified 06/21/18 10:14) Home Medications: Metformin HCl 1000 mg [Glucophage 1000 MG] 1,000 mg PO BID 07/25/14 [History] Sitagliptin Phosphate [Januvia] 100 mg PO HS 10/07/14 [History] Topiramate 100 mg [Topamax 100 MG] 200 mg PO BID 10/07/14 [History] Cetirizine HCl [Zyrtec] 10 mg PO HS 04/18/16 [History] Paroxetine HCl [Paxil] 20 mg PO DAILY 05/24/16 [History] Insulin Glargine,Hum.rec.anlog [Basaglar Kwikpen U-100] 20 units BID 05/25/18 [ History] Hx Tetanus, Diphtheria Vaccination/Date Given: No Hx Influenza Vaccination/Date Given: No Hx Pneumococcal Vaccination/Date Given: No Immunizations Up to Date: No - Review of Systems Constitutional: No Symptoms Musculoskeletal: Injury - Past Medical History Pertinent Past Medical History: Yes Neurological History: Seizures ENT History: No Pertinent History Cardiac History: No Pertinent History Respiratory History: No Pertinent History Endocrine Medical History: Diabetes Type II Musculoskeletal History: No Pertinent History GI Medical History: No Pertinent History History: No Pertinent History Psycho-Social History: Anxiety Female Reproductive Disorders: No Pertinent History Other Medical History: heart murmer - Past Surgical History Past Surgical History: Yes Neuro Surgical History: No Pertinent History Cardiac: No Pertinent History Respiratory: No Pertinent History Gastrointestinal: Cholecystectomy Genitourinary: No Pertinent History Musculoskeletal: No Pertinent History Female Surgical History: Section Other Surgical History: c-sec x2. tubal 05/04/18 pt states she had her tubes removed - Social History Smoking Status: Never smoker Exposure to second hand smoke: No Drug Use: none Patient Lives Alone: No - Female History Hx Now: No - Nursing Vital Signs Nursing Vital Signs: Initial Vital Signs Temperature 97.8 F 07/13/18 15:38 Pulse Rate 82 07/13/18 15:38 Respiratory Rate 18 07/13/18 15:38 Blood Pressure 157/88 07/13/18 15:38 O2 Sat by Pulse Oximetry 99 07/13/18 15:38 Pain Scale Pain Intensity 6 - Physical Exam Hand Exam: swelling (THERE IS SWELLING DISTAL PHALANGX FROM PREVIOUS INJURY, 3CM U-SHAPED LACERATION DIP JOINT RIGHT SMALL FINGER WITH FULL RANGE OF MOTION MCP, PIP AND DIP JOINT, NO EVIDENCE OF TRAUMA OR FOREIGN BODY) SpO2 Interpretation: normal SpO2: 99 Procedures - Laceration/Wound Repair Right Finger Wound Location: Right (SMALL FINGER) Wound Length (cm): 3 Wound's Depth, Shape: into muscle Wound Explored: clean Irrigated: Yes Hibiclens Prep: Yes Anesthesia: local, 2% Lidocaine Volume Anesthetic (ccs): 6 Wound Debrided: minimal Wound Repaired With: sutures Suture Size/Type: 4-0 Number of Sutures: 11 Layer Closure?: No Sterile Dressing Applied?: Yes Splint Applied?: Yes - Radiology Exams Right Hand X-ray Interpretation: Interpreted by me (NONDISPLACED FRACTURE PROXIMAL PHALANGX RIGHT 5TH ) Ordered Tests: Active Orders 24 hr Category Date Time Status HAND (MINIMUM 3 VIEWS) Stat Exams 07/13/18 15:45 Taken Medication Summary Discontinued Medications Generic Name Dose Route Start Last Admin Trade Name Freq PRN Reason Stop Dose Admin Hydrocodone Bitart/Acetaminophen 1 tab 07/13/18 16:46 [place] 10/325 Mg Tablet PO 07/13/18 16:47 STAT ONE Diphtheria/Tetanus/Acell Pertussis 0.5 ml 07/13/18 15:44 07/13/18 15:47 Adacel Vial IM 07/13/18 15:45 0.5 ml .ONCE ONE Administration Diphtheria/Tetanus/Acell Pertussis Confirm 07/13/18 15:49 Adacel Vial Administered 07/13/18 15:50 Dose 0.5 ml IM .STK-MED ONE Lidocaine HCl Confirm 07/13/18 15:50 Xylocaine 2% Hcl 20 Ml Mdv Administered 07/13/18 15:51 Dose 1 ml .ROUTE .STK-MED ONE - Departure Departure Disposition: Home Clinical Impression: FRACTURE RIGHT SMALL FINGER, LACERATION RIGHT SMALL FINGER Condition: Stable Critical Care Time: No Referrals: TAYLER RAYMOND [Primary Care Provider] - Additional Instructions: FOLLOWUP WITH [facility], DR AYALA ON Monday AT 9AM WITH COPY OF XRAY DISC. ANTIBIOTIC AUGMENTIN 875MG TWICE DAILY FOR 10 DAYS. [place] 10/325 EVERY 4 HOURS FOR PAIN. Prescriptions: Hydrocodone/APAP 10/325 mg [[place] 10/325 MG Tablet] 1 tab PO Q6H PRN PRN # 12 tablet MDD 4 PRN Reason: Pain Amox Tr/Potass Clav. 875 mg [Augmentin 875-125 Tablet] 1 each PO BID #20 tablet
[2018-07-13] MEDS ORDERED: Norco 10/325 MG Tablet PO ONE (16:46)
[2018-07-13] MEDS ORDERED: Norco 10/325 MG Tablet ONE (16:50)
[2018-07-13 17:10] VITALS: BP 143/91; PULSE 85; O2SAT 100
--- NOTE | 2018-07-13 23:04 | XRAY ---
Indication: Crush injury. Comparison: None 3 views of the right hand demonstrates nondisplaced transverse fracture involving the shaft of the 5th distal phalanx with soft tissue swelling. Incidental mild 5th DIP degenerative changes. No other bony, articular, or soft tissue abnormalities.
== END 2018-07-13 17:16 | disposition home or self-care (01) ==
LOC: ED 15:24
DX: S62.606A Fracture of unspecified phalanx of right little finger, initial encounter for closed fracture (principal); S61.216A Laceration without foreign body of right little finger without damage to nail, initial encounter; W23.0XXA Caught, crushed, jammed, or pinched between moving objects, initial encounter; Y93.89 Activity, other specified; Y92.89 Other specified places as the place of occurrence of the external cause; E11.9 Type 2 diabetes mellitus without complications; Z79.4 Long term (current) use of insulin; G40.909 Epilepsy, unspecified, not intractable, without status epilepticus; F41.9 Anxiety disorder, unspecified
CPT/HCPCS: 73130; 90471; 90715; 99284; A9270-GY

== ENCOUNTER 2019-08-17 15:28 | Emergency (ER) | payer OTHER ==
--- NOTE | 2019-08-17 15:32 | ERPHSYRPT ---
- History of Present Illness Time Seen by Provider: 08/17/19 15:32 Source: patient Exam Limitations: no limitations Physician History: This is a 43-year-old overweight white female who approximately 3 hours prior to this evaluation, the patient slipped at home on a plastic lid. Patient only wants her right knee x-rayed. Patient states she has mild right shoulder discomfort but does not want that x-rayed. Patient can bear weight without difficulty. And she has full range of motion. Patient did not hit her head and does not have any neck pain complaints plaints or back pain complaints. Method of Injury: fell Occurred: this afternoon Severity of Pain-Max: mild Severity of Pain-Current: mild Lower Extremities Pain: knee: right Modifying Factors: Improves With: movement (Mild tenderness) Associated Symptoms: none Allergies/Adverse Reactions: cephalexin [From Keflex] Allergy (Verified 06/21/18 10:14) lamotrigine [From Lamictal] Allergy (Verified 06/21/18 10:14) Sulfa (Sulfonamide Antibiotics) Allergy (Verified 06/21/18 10:14) Home Medications: Metformin HCl 1000 mg [Glucophage 1000 MG] 1,000 mg PO BID 07/25/14 [History] Sitagliptin Phosphate [Januvia] 100 mg PO HS 10/07/14 [History] Topiramate 100 mg [Topamax 100 MG] 200 mg PO BID 10/07/14 [History] Cetirizine HCl [Zyrtec] 10 mg PO HS 04/18/16 [History] Paroxetine HCl [Paxil] 20 mg PO DAILY 05/24/16 [History] Insulin Glargine,Hum.rec.anlog [Basaglar Kwikpen U-100] 20 units BID 05/25/18 [ History] Insulin Lispro [Admelog Solostar] 100 units IM TID 08/17/19 [History] Hx Tetanus, Diphtheria Vaccination/Date Given: No Hx Influenza Vaccination/Date Given: No Hx Pneumococcal Vaccination/Date Given: No Travel Risk - International Travel Have you traveled outside of the country in past 3 weeks: No - Coronavirus Screening Are you exhibiting any of the following symptoms?: No Close contact with a COVID-19 positive Pt in past 14-21 Days: No - Review of Systems Constitutional: No Symptoms Eyes: No Symptoms Ears, Nose, & Throat: No Symptoms Respiratory: No Symptoms Cardiac: No Symptoms Abdominal/Gastrointestinal: No Symptoms Genitourinary Symptoms: No Symptoms Musculoskeletal: Fall, Injury (Right knee) Skin: No Symptoms Neurological: No Symptoms Psychological: No Symptoms Endocrine: No Symptoms Hematologic/Lymphatic: No Symptoms Immunological/Allergic: No Symptoms All Other Systems: Reviewed and Negative - Past Medical History Pertinent Past Medical History: Yes Neurological History: Seizures ENT History: No Pertinent History Cardiac History: No Pertinent History Respiratory History: No Pertinent History Endocrine Medical History: Diabetes Type II Musculoskeletal History: No Pertinent History GI Medical History: No Pertinent History History: No Pertinent History Psycho-Social History: Anxiety Female Reproductive Disorders: No Pertinent History Other Medical History: heart murmer - Past Surgical History Past Surgical History: Yes Neuro Surgical History: No Pertinent History Cardiac: No Pertinent History Respiratory: No Pertinent History Gastrointestinal: Cholecystectomy Genitourinary: No Pertinent History Musculoskeletal: No Pertinent History Female Surgical History: Section Other Surgical History: c-sec x2. tubal 05/04/18 pt states she had her tubes removed - Social History Smoking Status: Never smoker Exposure to second hand smoke: No Drug Use: none Patient Lives Alone: No - Nursing Vital Signs Nursing Vital Signs: Initial Vital Signs Temperature 97.8 F 08/17/19 15:34 Pulse Rate 88 08/17/19 15:34 Respiratory Rate 20 08/17/19 15:34 Blood Pressure 179/92 08/17/19 15:34 O2 Sat by Pulse Oximetry 97 08/17/19 15:34 Pain Scale Pain Intensity 8 - Physical Exam General Appearance: no apparent distress, alert, obese Eyes, Ears, Nose, Throat Exam: normal ENT inspection, moist mucous membranes Neck Exam: normal inspection, non-tender, supple, full range of motion Cardiovascular/Respiratory Exam: chest non-tender Gastrointestinal/Abdominal Exam: non-tender Back Exam: normal inspection, normal range of motion, No CVA tenderness, No vertebral tenderness Hips Exam: bilateral: non-tender, normal inspection, normal range of motion, no evidence of injury Legs Exam: bilateral leg: non-tender, normal inspection, normal range of motion , no evidence of injury Knees Exam: right knee: soft tissue tenderness, left knee: non-tender, bilateral knee: normal inspection, normal range of motion, no evidence of injury Ankle Exam: bilateral ankle: non-tender, normal inspection, normal range of motion, no evidence of injury Foot Exam: bilateral foot: non-tender, normal inspection, normal range of motion , no evidence of injury Neuro/Tendon Exam: normal sensation, normal motor functions, normal tendon functions Mental Status Exam: alert, oriented x 3, cooperative Skin Exam: normal color, warm, dry SpO2 Interpretation: normal O2 Delivery: Room Air - Course Nursing assessment & vital signs reviewed: Yes Ordered Tests: Active Orders 24 hr Category Date Time Status KNEE (3 VIEWS) Stat Exams 08/17/19 15:39 Taken - Progress Progress: unchanged Progress Note: 08/17/19 16:04 X-ray of right knee reveals no acute fracture or dislocation. Counseled pt/family regarding: diagnosis, need for follow-up, rad results - Departure Departure Disposition: Home Clinical Impression: Right knee sprain Condition: Stable Critical Care Time: No Referrals: TAYLER RAYMOND [Primary Care Provider] - Additional Instructions: Ice pack to right knee. May use Tylenol and ibuprofen for pain control. Follow -up on Monday, August 19, 2019, in the [facility] for further evaluation if your symptoms are persistent. You may show up there at 8: 00. It is a walk in clinic.
[2019-08-17 15:40] VITALS: BP 179/92
[2019-08-17 16:49] VITALS: PULSE 70; O2SAT 98
--- NOTE | 2019-08-17 20:36 | XRAY ---
Indication: Pain following fall. Comparison: August 01, 2017. 3 view right knee obtained. No bony, articular, or soft tissue abnormalities.
== END 2019-08-17 16:49 | disposition home or self-care (01) ==
LOC: ED 15:28
DX: S83.91XA Sprain of unspecified site of right knee, initial encounter (principal); W01.0XXA Fall on same level from slipping, tripping and stumbling without subsequent striking against object, initial encounter; Y93.89 Activity, other specified; Y92.89 Other specified places as the place of occurrence of the external cause; E11.9 Type 2 diabetes mellitus without complications; Z79.4 Long term (current) use of insulin; Z79.899 Other long term (current) drug therapy; G40.909 Epilepsy, unspecified, not intractable, without status epilepticus; F41.9 Anxiety disorder, unspecified
CPT/HCPCS: 73562; 99283

== ENCOUNTER 2019-10-23 12:09 | Emergency (ER) | payer OTHER ==
--- NOTE | 2019-10-23 12:16 | ERPHSYRPT ---
- History of Present Illness Time Seen by Provider: 10/23/19 12:15 Historian: patient Exam Limitations: no limitations Physician History: She is an overweight 44-year-old diabetic white female who has had vomiting and diarrhea for 3 days. She had a COVID-19 test yesterday but the results are pending. Patient states she cannot hold any fluids down and feels she may be dehydrated. Patient denies chest pain she denies shortness of breath she denies fever. Patient states there are people in her family that have similar symptoms but they are not COVID-19 positive as far she knows. Timing/Duration: day(s) (3), intermittent Activities at Onset: none Quality: cramping (Mild diffuse) Abdominal Pain Onset Location: generalized abdomen Pain Radiation: no radiation Severity of Pain-Max: mild Severity of Pain-Current: mild Modifying Factors: Improves With: vomiting Associated Symptoms: diarrhea, loss of appetite, nausea, vomiting, weakness, No chest pain, No headache, No shortness of breath Previous symptoms: same symptoms as today, recently seen Allergies/Adverse Reactions: cephalexin [From Keflex] Allergy (Verified 10/23/19 12:20) lamotrigine [From Lamictal] Allergy (Verified 10/23/19 12:20) Sulfa (Sulfonamide Antibiotics) Allergy (Verified 10/23/19 12:20) Home Medications: Metformin HCl 1000 mg [Glucophage 1000 MG] 1,000 mg PO BID 07/25/14 [History] Sitagliptin Phosphate [Januvia] 100 mg PO HS 10/07/14 [History] Topiramate 100 mg [Topamax 100 MG] 200 mg PO BID 10/07/14 [History] Cetirizine HCl [Zyrtec] 10 mg PO HS 04/18/16 [History] Paroxetine HCl [Paxil] 20 mg PO DAILY 05/24/16 [History] Insulin Glargine,Hum.rec.anlog [Basaglar Kwikpen U-100] 32 units SQ DAILY PRN 05/25/18 [History] Hx Tetanus, Diphtheria Vaccination/Date Given: No Hx Influenza Vaccination/Date Given: No Hx Pneumococcal Vaccination/Date Given: No Travel Risk - International Travel Have you traveled outside of the country in past 3 weeks: No - Coronavirus Screening Are you exhibiting any of the following symptoms?: Yes Symptoms: Vomiting/Diarrhea - Review of Systems Constitutional: Weakness Eyes: No Symptoms Ears, Nose, & Throat: No Symptoms Respiratory: No Symptoms Cardiac: No Symptoms Abdominal/Gastrointestinal: Abdominal Pain (Mild diffuse cramping), Nausea, Vomiting, Diarrhea Genitourinary Symptoms: No No Symptoms Musculoskeletal: No Symptoms Skin: No Symptoms Neurological: No Symptoms Psychological: No Symptoms Endocrine: No Symptoms Hematologic/Lymphatic: No Symptoms Immunological/Allergic: No Symptoms All Other Systems: Reviewed and Negative - Past Medical History Pertinent Past Medical History: Yes Neurological History: Seizures ENT History: No Pertinent History Cardiac History: No Pertinent History Respiratory History: No Pertinent History Endocrine Medical History: Diabetes Type II Musculoskeletal History: No Pertinent History GI Medical History: No Pertinent History History: No Pertinent History Psycho-Social History: Anxiety Female Reproductive Disorders: No Pertinent History Other Medical History: heart murmer - Past Surgical History Past Surgical History: Yes Neuro Surgical History: No Pertinent History Cardiac: No Pertinent History Respiratory: No Pertinent History Gastrointestinal: Cholecystectomy Genitourinary: No Pertinent History Musculoskeletal: No Pertinent History Female Surgical History: Section Other Surgical History: c-sec x2. tubal 05/04/18 pt states she had her tubes removed - Social History Smoking Status: Never smoker Exposure to second hand smoke: No Drug Use: none Patient Lives Alone: No - Nursing Vital Signs Nursing Vital Signs: Initial Vital Signs Temperature 99.7 F 10/23/19 12:24 Pulse Rate 92 H 10/23/19 12:24 Respiratory Rate 18 10/23/19 12:24 Blood Pressure 144/95 10/23/19 12:24 O2 Sat by Pulse Oximetry 99 10/23/19 12:24 Pain Scale Pain Intensity 6 - Physical Exam General Appearance: no apparent distress, alert, anxiety, obese Eye Exam: PERRL/EOMI Ears, Nose, Throat Exam: normal ENT inspection, moist mucous membranes Neck Exam: normal inspection, non-tender, supple, full range of motion Respiratory Exam: normal breath sounds, lungs clear, airway intact, No chest tenderness, No respiratory distress Cardiovascular Exam: regular rate/rhythm, normal heart sounds, normal peripheral pulses Gastrointestinal/Abdomen Exam: soft, normal bowel sounds, tenderness (Mild), No guarding, No rebound Pelvic Exam: not done Rectal Exam: not done Back Exam: normal inspection, normal range of motion, No CVA tenderness, No vertebral tenderness Extremity Exam: normal inspection, normal range of motion, pelvis stable Neurologic Exam: alert, oriented x 3, impress associate II-XII nml as tested, nml cerebellar function, nml station & gait, sensation nml Skin Exam: normal color Lymphatic Exam: No adenopathy SpO2 Interpretation: normal O2 Delivery: Room Air - Course Nursing assessment & vital signs reviewed: Yes Ordered Tests: Active Orders 24 hr Category Date Time Status IV Insertion STAT Care 10/23/19 12:23 Active AMYLASE Stat Lab 10/23/19 12:40 Completed CBC W DIFF Stat Lab 10/23/19 12:40 Completed CMP Stat Lab 10/23/19 12:40 Completed LIPASE Stat Lab 10/23/19 12:40 Completed Lactic Acid Stat Lab 10/23/19 12:36 Completed [place] Screen Stat Lab 10/23/19 12:40 Completed UA W/RFX UR CULTURE Stat Lab 10/23/19 14:49 Completed Medication Summary Discontinued Medications Generic Name Dose Route Start Last Admin Trade Name Freq PRN Reason Stop Dose Admin Famotidine 20 mg 10/23/19 12:23 10/23/19 12:32 Pepcid 20 Mg Vial IV 10/23/19 12:24 20 mg STAT ONE Administration Famotidine Confirm 10/23/19 12:31 Pepcid 20 Mg Vial Administered 10/23/19 12:32 Dose 20 mg IV .STK-MED ONE Sodium Chloride 1,000 mls @ 999 mls/hr 10/23/19 12:23 10/23/19 13:37 Sodium Chloride 0.9% 1000 Ml IV 10/23/19 13:23 Infused .Q1H1M STA Infusion Sodium Chloride Confirm 10/23/19 12:31 Sodium Chloride 0.9% 1000 Ml Administered 10/23/19 12:32 Dose 1,000 mls @ ud .ROUTE .STK-MED ONE Sodium Chloride 1,000 mls @ 999 mls/hr 10/23/19 13:31 10/23/19 14:49 Sodium Chloride 0.9% 1000 Ml IV 10/23/19 14:31 Infused .Q1H1M STA Infusion Sodium Chloride Confirm 10/23/19 13:37 Sodium Chloride 0.9% 1000 Ml Administered 10/23/19 13:38 Dose 1,000 mls @ ud .ROUTE .STK-MED ONE Ondansetron HCl 4 mg 10/23/19 12:23 10/23/19 12:33 Zofran 4 Mg/2 Ml Vial IV 10/23/19 12:24 4 mg STAT ONE Administration Ondansetron HCl Confirm 10/23/19 12:31 Zofran 4 Mg/2 Ml Vial Administered 10/23/19 12:32 Dose 4 mg .ROUTE .STK-MED ONE Lab/Rad Data: Laboratory Result Diagrams 10/23/19 12:40 10/23/19 12:40 Laboratory Results 10/23/19 10/23/19 10/23/19 Range/Units 14:49 12:40 12:40 WBC (4.0-10.5) K/mm3 RBC (4.1-5.4) M/mm3 Hgb (12.0-16.0) gm/dl Hct (35-47) % MCV (78-100) fl MCH (26-32) pg MCHC (32-36) g/dl RDW (11.5-14.0) % Plt Count (150-450) K/mm3 MPV (7.5-11.0) fl Gran % (36.0-66.0) % Eos # (Auto) (0-0.5) Absolute Lymphs (auto) (1.0-4.6) Absolute Monos (auto) (0.0-1.3) Lymphocytes % (24.0-44.0) % Monocytes % (0.0-12.0) % Eosinophils % (0.00-5.0) % Basophils % (0.0-0.4) % Absolute Granulocytes (1.4-6.9) Basophils # (0-0.4) Sodium (137-145) mmol/L Potassium (3.5-5.1) mmol/L Chloride (98-107) mmol/L Carbon Dioxide (22-30) mmol/L Anion Gap (5-15) MEQ/L BUN (7-17) mg/dL Creatinine (0.52-1.04) mg/dL Estimated GFR ML/MIN Glucose (74-106) mg/dL Lactic Acid (0.4-2.0) Calcium (8.4-10.2) mg/dL Total Bilirubin (0.2-1.3) mg/dL AST (14-36) U/L ALT (0-35) U/L Alkaline Phosphatase (38-126) U/L Serum Total Protein (6.3-8.2) g/dL Albumin (3.5-5.0) g/dL Amylase (30-110) U/L Lipase (23-300) U/L Urine Color YELLOW (YELLOW) Urine Appearance SLIGHTLY CLOUDY (CLEAR) Urine pH 6.0 (5-6) Ur Specific [place] 1.021 (1.005-1.025) Urine Protein NEGATIVE (Negative) Urine Ketones NEGATIVE (NEGATIVE) Urine Blood LARGE (0-5) Kiet/ul Urine Nitrite NEGATIVE (NEGATIVE) Urine Bilirubin NEGATIVE (NEGATIVE) Urine Urobilinogen NEGATIVE (0-1) mg/dL Ur Leukocyte Esterase NEGATIVE (NEGATIVE) Urine WBC (Auto) 0-2 (0-5) /HPF Urine RBC (Auto) >101 (0-2) /HPF U Epithel Cells (Auto) RARE (FEW) /HPF Urine Bacteria (Auto) NONE SEEN (NEGATIVE) /HPF Urine Mucus (Auto) SLIGHT (NEGATIVE) /HPF Urine Culture Reflexed NO (NO) Urine Glucose NEGATIVE (NEGATIVE) mg/dL Monoscreen NEGATIVE (Negative) Influenza Type A Ag NEGATIVE (NEGATIVE) Influenza Type B Ag NEGATIVE (NEGATIVE) RSV (PCR) NEGATIVE (Negative) 10/23/19 10/23/19 10/23/19 Range/Units 12:40 12:40 12:36 WBC 3.8 L (4.0-10.5) K/mm3 RBC 5.24 (4.1-5.4) M/mm3 Hgb 14.5 (12.0-16.0) gm/dl Hct 44.5 (35-47) % MCV 84.9 (78-100) fl MCH 27.7 (26-32) pg MCHC 32.6 (32-36) g/dl RDW 14.9 H (11.5-14.0) % Plt Count 209 (150-450) K/mm3 MPV 11.2 H (7.5-11.0) fl Gran % 66.2 H (36.0-66.0) % Eos # (Auto) 0.03 (0-0.5) Absolute Lymphs (auto) 0.76 L (1.0-4.6) Absolute Monos (auto) 0.47 (0.0-1.3) Lymphocytes % 20.1 L (24.0-44.0) % Monocytes % 12.4 H (0.0-12.0) % Eosinophils % 0.8 (0.00-5.0) % Basophils % 0.5 (0.0-0.4) % Absolute Granulocytes 2.51 (1.4-6.9) Basophils # 0.02 (0-0.4) Sodium 138 (137-145) mmol/L Potassium 4.0 (3.5-5.1) mmol/L Chloride 105 (98-107) mmol/L Carbon Dioxide 23 (22-30) mmol/L Anion Gap 14.3 (5-15) MEQ/L BUN 23 H (7-17) mg/dL Creatinine 1.07 H (0.52-1.04) mg/dL Estimated GFR 59.8 ML/MIN Glucose 245 H (74-106) mg/dL Lactic Acid 1.4 (0.4-2.0) Calcium 9.3 (8.4-10.2) mg/dL Total Bilirubin 0.40 (0.2-1.3) mg/dL AST 31 (14-36) U/L ALT 29 (0-35) U/L Alkaline Phosphatase 45 (38-126) U/L Serum Total Protein 8.0 (6.3-8.2) g/dL Albumin 4.7 (3.5-5.0) g/dL Amylase 53 (30-110) U/L Lipase 88 (23-300) U/L Urine Color (YELLOW) Urine Appearance (CLEAR) Urine pH (5-6) Ur Specific [place] (1.005-1.025) Urine Protein (Negative) Urine Ketones (NEGATIVE) Urine Blood (0-5) Kiet/ul Urine Nitrite (NEGATIVE) Urine Bilirubin (NEGATIVE) Urine Urobilinogen (0-1) mg/dL Ur Leukocyte Esterase (NEGATIVE) Urine WBC (Auto) (0-5) /HPF Urine RBC (Auto) (0-2) /HPF U Epithel Cells (Auto) (FEW) /HPF Urine Bacteria (Auto) (NEGATIVE) /HPF Urine Mucus (Auto) (NEGATIVE) /HPF Urine Culture Reflexed (NO) Urine Glucose (NEGATIVE) mg/dL Monoscreen (Negative) Influenza Type A Ag (NEGATIVE) Influenza Type B Ag (NEGATIVE) RSV (PCR) (Negative) - Progress Progress: improved, re-examined Progress Note: 10/23/19 15:41 Patient has been resting comfortably. I been in the room 3 times since the first visit and each time she is been asleep and I had to wake her up to ask her how she was feeling. The patient has been hemodynamically stable. She has not been vomiting. Her lab work is stable for discharge. Her urinalysis does not show ketones or infection. We will discharge her to home with a prescription for Zofran. She is aware that she needs to quarantine herself until the COVID- 19 lab result has returned. Counseled pt/family regarding: lab results, diagnosis, need for follow-up - Departure Departure Disposition: Home Clinical Impression: Vomiting, Fever Condition: Stable Critical Care Time: No Referrals: TAYLER RAYMOND [Primary Care Provider] - Additional Instructions: Drink plenty of clear liquids before considering advancing your diet. Take your medication as prescribed. Quarantine yourself until your COVID-19 test result has returned. Fill your Zofran prescription and use as directed. Prescriptions: Ondansetron ODT 4 MG [Zofran Odt 4 mg] 4 mg PO Q6H PRN PRN #10 tab.rapdis PRN Reason: Vomiting
[2019-10-23] MEDS ORDERED: Zofran 4 MG/2 ML VIAL IV ONE (12:23)
[2019-10-23] MEDS ORDERED: Sodium Chloride 0.9% 1000 ML 1,000 ML IV STA ×2 (12:23→13:31)
[2019-10-23] MEDS ORDERED: Pepcid 20 MG VIAL IV ONE ×2 (12:23→12:31)
[2019-10-23] MEDS ORDERED: Sodium Chloride 0.9% 1000 ML 1,000 ML ONE ×2 (12:31→13:37)
[2019-10-23] MEDS ORDERED: Zofran 4 MG/2 ML VIAL ONE (12:31)
[2019-10-23 12:46] LABS: Absolute Neutrophil Ct (ANC) 2.51 (1.4-6.9); BASOPHIL % 0.5 % (0.0-0.4); Basophil (Absolute #) 0.02 (0-0.4); Eosinophil % 0.8 % (0.00-5.0); Eosinophil (Absolute #) 0.03 (0-0.5); Hematocrit 44.5 % (35-47); Hemoglobin 14.5 gm/dl (12.0-16.0); Lymphocyte (Absolute #) 0.76 (1.0-4.6); Lymphocytes % 20.1 % (24.0-44.0); Mean Cell Volume 84.9 fl (78-100); Mean Corpuscular Hemoglobin 27.7 pg (26-32); Mean Corpuscular Hgb Concent. 32.6 g/dl (32-36); Mean Platelet Volume 11.2 fl (7.5-11.0); Monocyte (Absolute #) 0.47 (0.0-1.3); Monocytes % 12.4 % (0.0-12.0); Neutrophil % 66.2 % (36.0-66.0); Platelet Count 209 K/mm3 (150-450); Red Blood Count 5.24 M/mm3 (4.1-5.4); Red Cell Distribution Width 14.9 % (11.5-14.0); White Blood Count 3.8 K/mm3 (4.0-10.5)
[2019-10-23 12:53] LABS: ALBUMIN 4.7 g/dL (3.5-5.0); ANION GAP 14.3 MEQ/L (5-15); BILIRUBIN,TOTAL 0.4 mg/dL (0.2-1.3); Calcium 9.3 mg/dL (8.4-10.2); Creatinine 1 1.07 mg/dL (0.52-1.04)
[2019-10-23 13:26] LABS: INFLUENZA A NEGATIVE (NEGATIVE); INFLUENZA B NEGATIVE (NEGATIVE); RESPIRATORY SYNCTIAL VIRUS NEGATIVE (Negative)
[2019-10-23 15:13] LABS: Appearance SLIGHTLY CLOUDY (CLEAR); Bilirubin NEGATIVE (NEGATIVE); Blood LARGE Ery/ul (0-5); Epithelial Cells RARE /HPF (FEW); Glucose NEGATIVE (NEGATIVE); Ketones NEGATIVE (NEGATIVE); Leukocyte Esterase NEGATIVE (NEGATIVE); Mucus SLIGHT /HPF (NEGATIVE); Nitrite NEGATIVE (NEGATIVE); Protein,Urine Dip NEGATIVE (Negative); Specific Gravity 1.021 (1.005-1.025); Urobilinogen NEGATIVE mg/dL (0-1); WBC 0-2 /HPF (0-5)
[2019-10-23 15:17] LABS: RBC >101 /HPF (0-2)
[2019-10-23 15:18] LABS: Bacteria NONE SEEN /HPF (NEGATIVE)
[2019-10-23 15:50] VITALS: BP 127/86; PULSE 88; O2SAT 99
== END 2019-10-23 15:54 | disposition home or self-care (01) ==
LOC: ED 12:09
DX: R11.10 Vomiting, unspecified (principal); R50.9 Fever, unspecified
CPT/HCPCS: 36000; 36415; 80053; 81001; 82150; 83605; 83690; 85025; 86308; 87631; 96360; 96361; 96374; 96375; 99284; J2405

== ENCOUNTER 2019-10-27 22:21 | Observation (INO) | payer OTHER ==
[2019-10-27] MEDS ORDERED: Zofran 4 MG/2 ML VIAL IV ONE (23:32)
[2019-10-27] MEDS ORDERED: Sodium Chloride 0.9% 1000 ML 1,000 ML IV STA (23:33)
--- NOTE | 2019-10-27 23:39 | ERPHSYRPT ---
- History of Present Illness Time Seen by Provider: 10/27/19 23:18 Source: patient Exam Limitations: no limitations Physician History: Pt states she had a seizure 45 minutes ago and has had an occipital headache for the past 6 days. Pt states she takes topamate for her seizures and states she has not had a head ct-scan for over 10 years. Pt also c/o constant sharp/burning right anterior chest pain and shortness of air for the past 2 days. Pt also states 6 days ago she started with fever of 100.8 degrees and was tested for COVID-19 with a positive result reported 2 days ago. Pt also states she vomited about 50 times in the past 6 days without blood and had about 20 episodes of diarrhea since yesterday without blood. Allergies/Adverse Reactions: cephalexin [From Keflex] Allergy (Verified 10/23/19 12:20) lamotrigine [From Lamictal] Allergy (Verified 10/23/19 12:20) Sulfa (Sulfonamide Antibiotics) Allergy (Verified 10/23/19 12:20) Home Medications: Metformin HCl 1000 mg [Glucophage 1000 MG] 1,000 mg PO BID 07/25/14 [History] Sitagliptin Phosphate [Januvia] 100 mg PO HS 10/07/14 [History] Topiramate 100 mg [Topamax 100 MG] 200 mg PO BID 10/07/14 [History] Cetirizine HCl [Zyrtec] 10 mg PO HS 04/18/16 [History] Paroxetine HCl [Paxil] 20 mg PO DAILY 05/24/16 [History] Insulin Glargine,Hum.rec.anlog [Basaglar Kwikpen U-100] 32 units SQ DAILY PRN 05/25/18 [History] Hx Tetanus, Diphtheria Vaccination/Date Given: No Hx Influenza Vaccination/Date Given: No Hx Pneumococcal Vaccination/Date Given: No Travel Risk - International Travel Have you traveled outside of the country in past 3 weeks: No (N) If Yes, where;: N - Coronavirus Screening Are you exhibiting any of the following symptoms?: Yes Symptoms: Fever, Vomiting/Diarrhea Close contact with a COVID-19 positive Pt in past 14-21 Days: No - Review of Systems Constitutional: Fever Respiratory: No Cough, No Dyspnea Cardiac: Chest Pain Abdominal/Gastrointestinal: Nausea, Vomiting, Diarrhea Neurological: Headache, Seizure All Other Systems: Reviewed and Negative - Past Medical History Pertinent Past Medical History: Yes Neurological History: Seizures ENT History: No Pertinent History Cardiac History: No Pertinent History Respiratory History: No Pertinent History Endocrine Medical History: Diabetes Type II Musculoskeletal History: No Pertinent History GI Medical History: No Pertinent History History: No Pertinent History Psycho-Social History: Anxiety Female Reproductive Disorders: No Pertinent History Other Medical History: heart murmer - Past Surgical History Past Surgical History: Yes Neuro Surgical History: No Pertinent History Cardiac: No Pertinent History Respiratory: No Pertinent History Gastrointestinal: Cholecystectomy Genitourinary: No Pertinent History Musculoskeletal: No Pertinent History Female Surgical History: Section Other Surgical History: c-sec x2. tubal 05/04/18 pt states she had her tubes removed - Social History Smoking Status: Never smoker Exposure to second hand smoke: No Drug Use: none Patient Lives Alone: No - Female History Hx Now: (unknown) - Nursing Vital Signs Nursing Vital Signs: Initial Vital Signs Temperature 100.4 F 10/27/19 22:23 Pulse Rate 112 H 10/27/19 22:23 Respiratory Rate 18 10/27/19 22:23 Blood Pressure 121/84 10/27/19 22:23 O2 Sat by Pulse Oximetry 95 10/27/19 22:23 Pain Scale Pain Intensity 4 - [place] Coma Scale Best Eye Response ([place]): (4) open spontaneously Best Verbal Response ([place]): (5) oriented Best Motor Response ([place]): (6) obeys commands [place] Total: 15 - Physical Exam General Appearance: alert, anxiety Eye Exam: bilateral eye: PERRL, EOMI Ears, Nose, Throat Exam: TMs normal, pharyngeal erythema Neck Exam: normal inspection Respiratory: lungs clear Cardiovascular: tachycardia Gastrointestinal: soft, No normal bowel sounds (b.s. 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 mildly distended fluid-filled colon and rectum. suspect diarrhea. hepatomegaly and steatosis.) Chest CT Interpretation: Tele-radiologist Report (CTA: no acute pulminary embolic disease. patchy bilateral ground glass opacities.) Ordered Tests: Active Orders 24 hr Category Date Time Status Cath for Specimen-Straight STAT Care 10/28/19 04:42 Active EKG-ER Only STAT Care 10/27/19 23:28 Active IV Insertion STAT Care 10/27/19 23:28 Active ABDOMEN AND PELVIS W/0 CONTRAS [CT] Stat Exams 10/28/19 00:30 Taken CHEST 2 VIEWS (PA AND LAT) Stat Exams 10/28/19 00:30 Taken CHEST WITH CONTRAST [CT] Stat Exams 10/28/19 00:30 Taken HEAD WITHOUT CONTRAST [CT] Stat Exams 10/28/19 00:30 Taken AMYLASE Stat Lab 10/27/19 22:40 Completed BLOOD CULTURE Stat Lab 10/27/19 22:40 Received CBC W DIFF Stat Lab 10/27/19 22:40 Completed CMP Stat Lab 10/27/19 22:40 Completed CULTURE,SPUTUM Stat Lab 10/28/19 01:55 Uncollected D-DIMER QUANTITATIVE Stat Lab 10/27/19 22:40 Completed HCG QUALITATIVE,SERUM Stat Lab 10/27/19 22:40 Completed LIPASE Stat Lab 10/27/19 22:40 Completed Lactic Acid Stat Lab 10/27/19 23:28 Completed MAGNESIUM Stat Lab 10/27/19 22:40 Completed [place] Screen Stat Lab 10/27/19 22:40 Completed NT PRO BNP Stat Lab 10/27/19 22:40 Completed TROPONIN Q3H Lab 10/27/19 22:40 Completed TROPONIN Q3H Lab 10/28/19 03:13 Completed TROPONIN Q3H Lab 10/28/19 05:30 Ordered TROPONIN Q3H Lab 10/28/19 08:30 Ordered TROPONIN Q3H Lab 10/28/19 11:30 Ordered UA W/RFX UR CULTURE Stat Lab 10/27/19 23:28 Uncollected Medication Summary Discontinued Medications Generic Name Dose Route Start Last Admin Trade Name Freq PRN Reason Stop Dose Admin Sodium Chloride 1,000 mls @ 999 mls/hr 10/27/19 23:33 10/28/19 02:10 Sodium Chloride 0.9% 1000 Ml IV 10/28/19 00:33 999 mls/hr .Q1H1M STA Administration Sodium Chloride 1,000 mls @ 999 mls/hr 10/28/19 01:08 10/28/19 03:24 Sodium Chloride 0.9% 1000 Ml IV 10/28/19 02:08 999 mls/hr .Q1H1M STA Administration Azithromycin 500 mg in 250 mls @ 250 mls/hr 10/28/19 01:55 10/28/19 02:09 Zithromax 500 Mg/ 250 Ml Nacl Premix IV 10/28/19 02:54 250 ml/hr STAT STA 250 mls/hr Administration Azithromycin Confirm 10/28/19 02:06 Zithromax 500 Mg/ 250 Ml Nacl Premix Administered 10/28/19 02:07 Dose 500 mg in 250 mls @ ud IV .STK-MED ONE Sodium Chloride Confirm 10/28/19 02:06 Sodium Chloride 0.9% 1000 Ml Administered 10/28/19 02:07 Dose 2,000 mls @ ud .ROUTE .STK-MED ONE Ondansetron HCl 4 mg 10/27/19 23:32 10/28/19 02:10 Zofran 4 Mg/2 Ml Vial IV 10/27/19 23:33 4 mg STAT ONE Administration Ondansetron HCl Confirm 10/28/19 02:06 Zofran 4 Mg/2 Ml Vial Administered 10/28/19 02:07 Dose 4 mg .ROUTE .STK-MED ONE Lab/Rad Data: Laboratory Result Diagrams 10/27/19 22:40 10/27/19 22:40 Laboratory Results 10/28/19 10/28/19 10/27/19 Range/Units 03:13 00:20 22:40 WBC (4.0-10.5) K/mm3 RBC (4.1-5.4) M/mm3 Hgb (12.0-16.0) gm/dl Hct (35-47) % MCV (78-100) fl MCH (26-32) pg MCHC (32-36) g/dl RDW (11.5-14.0) % Plt Count (150-450) K/mm3 MPV (7.5-11.0) fl Gran % (36.0-66.0) % Eos # (Auto) (0-0.5) Absolute Lymphs (auto) (1.0-4.6) Absolute Monos (auto) (0.0-1.3) Lymphocytes % (24.0-44.0) % Monocytes % (0.0-12.0) % Eosinophils % (0.00-5.0) % Basophils % (0.0-0.4) % Absolute Granulocytes (1.4-6.9) Basophils # (0-0.4) D-Dimer (215-500) ng/mL Sodium (137-145) mmol/L Potassium (3.5-5.1) mmol/L Chloride (98-107) mmol/L Carbon Dioxide (22-30) mmol/L Anion Gap (5-15) MEQ/L BUN (7-17) mg/dL Creatinine (0.52-1.04) mg/dL Estimated GFR ML/MIN Glucose (74-106) mg/dL Lactic Acid 1.4 (0.4-2.0) Calcium (8.4-10.2) mg/dL Magnesium (1.6-2.3) mg/dL Total Bilirubin (0.2-1.3) mg/dL AST (14-36) U/L ALT (0-35) U/L Alkaline Phosphatase (38-126) U/L Troponin I < 0.012 (0.000-0.034) ng/mL NT-Pro-B Natriuret Pep (0-450) pg/mL Serum Total Protein (6.3-8.2) g/dL Albumin (3.5-5.0) g/dL Amylase (30-110) U/L Lipase (23-300) U/L Serum , Qual NEGATIVE (Negative) Monoscreen NEGATIVE (Negative) Group A Strep Antibody (NEGATIVE) 10/27/19 10/27/19 10/27/19 Range/Units 22:40 22:40 22:40 WBC (4.0-10.5) K/mm3 RBC (4.1-5.4) M/mm3 Hgb (12.0-16.0) gm/dl Hct (35-47) % MCV (78-100) fl MCH (26-32) pg MCHC (32-36) g/dl RDW (11.5-14.0) % Plt Count (150-450) K/mm3 MPV (7.5-11.0) fl Gran % (36.0-66.0) % Eos # (Auto) (0-0.5) Absolute Lymphs (auto) (1.0-4.6) Absolute Monos (auto) (0.0-1.3) Lymphocytes % (24.0-44.0) % Monocytes % (0.0-12.0) % Eosinophils % (0.00-5.0) % Basophils % (0.0-0.4) % Absolute Granulocytes (1.4-6.9) Basophils # (0-0.4) D-Dimer 1725 H* (215-500) ng/mL Sodium 138 (137-145) mmol/L Potassium 3.6 (3.5-5.1) mmol/L Chloride 106 (98-107) mmol/L Carbon Dioxide 20 L (22-30) mmol/L Anion Gap 15.7 H (5-15) MEQ/L BUN 22 H (7-17) mg/dL Creatinine 0.96 (0.52-1.04) mg/dL Estimated GFR > 60.0 ML/MIN Glucose 214 H (74-106) mg/dL Lactic Acid (0.4-2.0) Calcium 9.3 (8.4-10.2) mg/dL Magnesium 1.9 (1.6-2.3) mg/dL Total Bilirubin 0.40 (0.2-1.3) mg/dL AST 38 H (14-36) U/L ALT 34 (0-35) U/L Alkaline Phosphatase 58 (38-126) U/L Troponin I < 0.012 (0.000-0.034) ng/mL NT-Pro-B Natriuret Pep 19.8 (0-450) pg/mL Serum Total Protein 8.0 (6.3-8.2) g/dL Albumin 4.6 (3.5-5.0) g/dL Amylase 54 (30-110) U/L Lipase 110 (23-300) U/L Serum , Qual (Negative) Monoscreen (Negative) Group A Strep Antibody (NEGATIVE) 10/27/19 10/27/19 Range/Units 22:40 01:25 WBC 3.4 L (4.0-10.5) K/mm3 RBC 5.58 H (4.1-5.4) M/mm3 Hgb 15.4 (12.0-16.0) gm/dl Hct 46.0 (35-47) % MCV 82.4 (78-100) fl MCH 27.6 (26-32) pg MCHC 33.5 (32-36) g/dl RDW 14.8 H (11.5-14.0) % Plt Count 170 (150-450) K/mm3 MPV 11.3 H (7.5-11.0) fl Gran % 61.9 (36.0-66.0) % Eos # (Auto) 0.01 (0-0.5) Absolute Lymphs (auto) 0.93 L (1.0-4.6) Absolute Monos (auto) 0.34 (0.0-1.3) Lymphocytes % 27.7 (24.0-44.0) % Monocytes % 10.1 (0.0-12.0) % Eosinophils % 0.3 (0.00-5.0) % Basophils % 0.0 (0.0-0.4) % Absolute Granulocytes 2.08 (1.4-6.9) Basophils # 0 (0-0.4) D-Dimer (215-500) ng/mL Sodium (137-145) mmol/L Potassium (3.5-5.1) mmol/L Chloride (98-107) mmol/L Carbon Dioxide (22-30) mmol/L Anion Gap (5-15) MEQ/L BUN (7-17) mg/dL Creatinine (0.52-1.04) mg/dL Estimated GFR ML/MIN Glucose (74-106) mg/dL Lactic Acid (0.4-2.0) Calcium (8.4-10.2) mg/dL Magnesium (1.6-2.3) mg/dL Total Bilirubin (0.2-1.3) mg/dL AST (14-36) U/L ALT (0-35) U/L Alkaline Phosphatase (38-126) U/L Troponin I (0.000-0.034) ng/mL NT-Pro-B Natriuret Pep (0-450) pg/mL Serum Total Protein (6.3-8.2) g/dL Albumin (3.5-5.0) g/dL Amylase (30-110) U/L Lipase (23-300) U/L Serum , Qual (Negative) Monoscreen (Negative) Group A Strep Antibody NOT DETECTED (NEGATIVE) - Progress Progress: unchanged Discussed with Dr.: Other (Dr. López Pearce) Will see patient in: hospital (observation) Counseled pt/family regarding: lab results, rad results - Departure Departure Disposition: Observation Clinical Impression: Pneumonia, COVID-19, Chest pain, Dyspnea, Seizure, Fever, Vomiting, Diarrhea, Diabetes, Anxiety, Tachycardia Condition: Stable Critical Care Time: Yes Critical Care Time(excluding separately billable procedures): Critical 30-74 mins Referrals: TAYLER RAYMOND [Primary Care Provider] -
[2019-10-27 23:51] LABS: Absolute Neutrophil Ct (ANC) 2.08 (1.4-6.9); Basophil (Absolute #) 0 (0-0.4); Eosinophil % 0.3 % (0.00-5.0); Eosinophil (Absolute #) 0.01 (0-0.5); Hemoglobin 15.4 gm/dl (12.0-16.0); Lymphocyte (Absolute #) 0.93 (1.0-4.6); Lymphocytes % 27.7 % (24.0-44.0); Mean Cell Volume 82.4 fl (78-100); Mean Corpuscular Hemoglobin 27.6 pg (26-32); Mean Corpuscular Hgb Concent. 33.5 g/dl (32-36); Mean Platelet Volume 11.3 fl (7.5-11.0); Monocyte (Absolute #) 0.34 (0.0-1.3); Monocytes % 10.1 % (0.0-12.0); Neutrophil % 61.9 % (36.0-66.0); Platelet Count 170 K/mm3 (150-450); Red Blood Count 5.58 M/mm3 (4.1-5.4); Red Cell Distribution Width 14.8 % (11.5-14.0); White Blood Count 3.4 K/mm3 (4.0-10.5)
[2019-10-28 00:01] LABS: HCG QUALITATIVE,SERUM NEGATIVE (Negative)
[2019-10-28 00:10] LABS: ALBUMIN 4.6 g/dL (3.5-5.0); ALKALINE PHOSPHATASE 58 U/L (38-126); AMYLASE 54 U/L (30-110); ANION GAP 15.7 MEQ/L (5-15); BLOOD UREA NITROGEN 22 mg/dL (7-17); CHLORIDE 106 mmol/L (98-107); Calcium 9.3 mg/dL (8.4-10.2); Carbon Dioxide 20 mmol/L (22-30); Creatinine 1 0.96 mg/dL (0.52-1.04); EST GLOMERULAR FILTRATION RATE > 60.0 ML/MIN; Glucose 214 mg/dL (74-106); LIPASE 110 U/L (23-300); MAGNESIUM 1.9 mg/dL (1.6-2.3); NT PRO BNP 19.8 pg/mL (0-450); Potassium 3.6 mmol/L (3.5-5.1); SGOT/AST 38 U/L (14-36); SGPT/ALT 34 U/L (0-35); SODIUM 138 mmol/L (137-145)
[2019-10-28 00:57] LABS: Mono Screen NEGATIVE (Negative)
[2019-10-28] MEDS ORDERED: Sodium Chloride 0.9% 1000 ML 1,000 ML IV STA (01:08)
[2019-10-28] MEDS ORDERED: Zithromax 500 MG/ 250 ML NaCl Premix 500 MG/250 ML IVPB IV STA (01:55)
[2019-10-28] MEDS ORDERED: Sodium Chloride 0.9% 1000 ML 2,000 ML ONE (02:06)
[2019-10-28] MEDS ORDERED: Zofran 4 MG/2 ML VIAL ONE (02:06)
[2019-10-28] MEDS ORDERED: Zithromax 500 MG/ 250 ML NaCl Premix 500 MG/250 ML IVPB IV ONE (02:06)
[2019-10-28] MEDS ORDERED: Zofran 4 MG/2 ML VIAL IV PRN ×2 (05:01→07:23)
[2019-10-28] MEDS ORDERED: Nitrostat 0.4 MG Tablet SL PRN (05:01)
[2019-10-28] MEDS ORDERED: Ativan 2 MG/1 ML VIAL IV PRN (05:01)
[2019-10-28] MEDS ORDERED: Decadron 4 MG INJ IV SCH ×2 (05:15→07:30)
[2019-10-28] MEDS ORDERED: Sodium Chloride 0.9% 1000 ML 1,000 ML IV SCH (05:15)
[2019-10-28 06:25] LABS: ALBUMIN 3.8 g/dL (3.5-5.0); ALKALINE PHOSPHATASE 47 U/L (38-126); Absolute Neutrophil Ct (ANC) 1.77 (1.4-6.9); BASOPHIL % 0.3 % (0.0-0.4); BLOOD UREA NITROGEN 20 mg/dL (7-17); Basophil (Absolute #) 0.01 (0-0.4); CHLORIDE 110 mmol/L (98-107); Calcium 8.1 mg/dL (8.4-10.2); Carbon Dioxide 20 mmol/L (22-30); EST GLOMERULAR FILTRATION RATE > 60.0 ML/MIN; Eosinophil (Absolute #) 0 (0-0.5); Glucose 169 mg/dL (74-106); Hematocrit 40.8 % (35-47); Hemoglobin 13.4 gm/dl (12.0-16.0); Lymphocytes % 40.2 % (24.0-44.0); Mean Cell Volume 83.4 fl (78-100); Mean Corpuscular Hemoglobin 27.4 pg (26-32); Mean Corpuscular Hgb Concent. 32.8 g/dl (32-36); Monocytes % 8.6 % (0.0-12.0); Neutrophil % 50.9 % (36.0-66.0); Platelet Count 166 K/mm3 (150-450); Potassium 3.6 mmol/L (3.5-5.1); Red Blood Count 4.89 M/mm3 (4.1-5.4); Red Cell Distribution Width 14.6 % (11.5-14.0); SGOT/AST 29 U/L (14-36); SGPT/ALT 27 U/L (0-35); SODIUM 139 mmol/L (137-145); Total Protein 6.7 g/dL (6.3-8.2); White Blood Count 3.5 K/mm3 (4.0-10.5)
[2019-10-28] MEDS ORDERED: Ventolin Hfa MDI IH SCH (07:00)
[2019-10-28] MEDS ORDERED: REMDESIVIR 200 MG in Sodium Chloride 0.9% 250 ML 250 ML IV ONE (07:45)
[2019-10-28] MEDS ORDERED: REMDESIVIR IV ONE (08:00)
[2019-10-28] MEDS: Lactated Ringers 1,000 ML IV SCH ×3 (08:15→17:34)
[2019-10-28] MEDS: PROTONIX 40 MG IV IV SCH (08:20)
[2019-10-28] MEDS: HUMALOG SQ PRN ×3 (08:22→21:31)
[2019-10-28] MEDS: TYLENOL 325 MG PO PRN ×2 (09:10→17:00)
--- NOTE | 2019-10-28 09:26 | XRAY ---
Indication: Seizure. Multiple contiguous axial images obtained through the head without contrast. Comparison: None Normal appearing brain parenchyma, ventricles, and bony calvarium. Visualized paranasal sinuses and mastoid air cells are clear. Impression: Normal CT head without contrast exam. Comment: Preliminary interpretation was made by [facility]. No critical discrepancy.
--- NOTE | 2019-10-28 09:34 | XRAY ---
Indication: Elevated d-dimer. Multiple contiguous axial images obtained through the chest using 80 cc Isovue 370 contrast and PE protocol. Comparison: None Good opacification of the pulmonary arteries to include the lobar and segmental branches. No pulmonary embolus. Heart is not enlarged. Tiny pericardial effusion/thickening anteriorly. Aorta is normal in course and caliber. No pathologic mediastinal/hilar lymphadenopathy. Small hiatal hernia. Lungs inflated with small diffuse rounded patchy airspace opacities bilaterally. No consolidation or effusion. Bony thorax intact with mild degenerative changes throughout the spine. CT abdomen/pelvis reported separately. Impression: 1. Negative pulmonary embolus. 2. Bilateral patchy airspace disease. CT appearance suggests Covid 19 pneumonia. 3. Small hiatal hernia. Comment: Preliminary interpretation was made by [facility]. No critical discrepancy.
--- NOTE | 2019-10-28 09:38 | XRAY ---
Indication: Nausea, vomiting, fever, and diarrhea. Covid 19 positive. Multiple contiguous axial images obtained through the abdomen and pelvis without contrast as ordered. Comparison: June 22, 2018. CT chest reported separately. Noncontrasted stomach and bowel loops appear nonobstructed. Mild fluid distended left hemicolon and rectum consistent with reported diarrhea. No free fluid/air. Stable 23.6 cm fatty hepatomegaly 13.6 cm splenomegaly, and cholecystectomy. Remaining pancreas, adrenal glands, kidneys, ureters, bladder, uterus, and aorta appear unremarkable for noncontrast exam. Osseous structures intact again with mild degenerative changes throughout the thoracolumbar spine. Impression: 1. Fluid distended colon and rectum consistent with clinically reported diarrhea. 2. Again incidental fatty hepatomegaly and splenomegaly. 3. Remaining CT abdomen/pelvis without contrast exam is negative. Comment: Preliminary interpretation was made by [facility]. No critical discrepancy.
--- NOTE | 2019-10-28 09:40 | XRAY ---
Indication: Chest pain. Covid 19 positive. Comparison: May 25, 2018. PA/lateral chest demonstrates CT proven subtle bilateral airspace opacities without consolidation/effusion. Heart is not enlarged. Bony thorax intact again with mild degenerative changes.
[2019-10-28] MEDS ORDERED: ZOFRAN ODT 4 MG PO PRN (10:10)
[2019-10-28] MEDS ORDERED: INSULIN GLARGINE HUM REC ANLOG 32 UNIT SQ SCH (10:15)
[2019-10-28] MEDS: TOPIRAMATE PO SCH ×2 (12:15→21:30)
[2019-10-28] MEDS: Paxil 20 MG PO SCH (12:15)
[2019-10-28] MEDS: Lantus Insulin SQ SCH ×2 (12:16→21:30)
[2019-10-28 17:58] LABS: Appearance SLIGHTLY CLOUDY (CLEAR); Bilirubin NEGATIVE (NEGATIVE); Blood SMALL Ery/ul (0-5); Glucose 50 mg/dL (NEGATIVE); Ketones NEGATIVE (NEGATIVE); Leukocyte Esterase NEGATIVE (NEGATIVE); Mucus SLIGHT /HPF (NEGATIVE); Nitrite NEGATIVE (NEGATIVE); Protein,Urine Dip NEGATIVE (Negative); Specific Gravity 1.031 (1.005-1.025); Urobilinogen NEGATIVE mg/dL (0-1); WBC 0-2 /HPF (0-5)
[2019-10-28] MEDS: CLARITIN 10 MG PO SCH (21:30)
[2019-10-28] MEDS: Decadron 4 MG INJ IV SCH (21:30)
[2019-10-28] MEDS: Januvia 50 MG PO SCH (21:30)
[2019-10-28] MEDS ORDERED: NON-FORMULARY ITEM (Sitagliptin Phosphate [Januvia] 100 MG) PO SCH (22:00)
[2019-10-28] MEDS ORDERED: TOPIRAMATE PO SCH (22:00)
[2019-10-28] MEDS ORDERED: NON-FORMULARY ITEM (Metformin Hcl 1000 Mg [Glucophage 1000 Mg] 1,000 MG) PO SCH (22:00)
[2019-10-29] MEDS: Lactated Ringers 1,000 ML IV SCH ×2 (04:02→17:32)
[2019-10-29] MEDS ORDERED: REMDESIVIR 100 MG in Sodium Chloride 0.9% 100 ML IVPB 100 ML IV SCH (10:00)
[2019-10-29] MEDS ORDERED: HOLD METFORMIN PRODUCTS FOR 48 HOURS MC SCH (10:00)
[2019-10-29] MEDS ORDERED: REMDESIVIR IV SCH (10:00)
[2019-10-29] MEDS: PROTONIX 40 MG IV IV SCH (10:27)
[2019-10-29] MEDS: TOPIRAMATE PO SCH ×2 (10:27→21:17)
[2019-10-29] MEDS: Paxil 20 MG PO SCH (10:27)
[2019-10-29] MEDS: Decadron 4 MG INJ IV SCH ×2 (10:28→21:59)
[2019-10-29] MEDS: Zithromax 500 MG/ 250 ML NaCl Premix 500 MG/250 ML IVPB IV SCH (10:28)
[2019-10-29] MEDS: Lantus Insulin SQ SCH ×2 (10:28→21:22)
[2019-10-29] MEDS ORDERED: Zestril 20 MG PO SCH (11:00)
--- NOTE | 2019-10-29 13:30 | HP ---
CHIEF COMPLAINT: Headache, vomiting 50 times in the last six days. Positive COVID for seven or eight days. HISTORY OF PRESENT ILLNESS: The patient is a 44 year old white female whose has been in here a couple of times with symptoms of COVID. He tested positive the same day she did she thinks six days ago. She said the vomiting had just started at that time and has progressively gotten worse and cannot hold water down. She also had multiple occasions of diarrhea 20 times without blood. had similar symptoms plus shortness of breath. She has had no severe shortness of breath. MEDICATIONS: Metformin 1,000 b.i.d., Januvia 100 h.s., Topamax 200 b.i.d. for seizures, Zyrtec 1 q.d., Paxil 20 q.d., insulin Glargine by pen 32 units daily. CORONAVIRUS SCREEN: The patient is not for sure where she and her got it but they have been to some [employer] sales in the community the last week. They do not know of any family members. They have two children at home who are quarantined and little social help. He is disabled and she is not able to work either. ALLERGIES: SULFA. CEPHALEXIN. LAMOTRIGINE. PAST MEDICAL HISTORY: Covered above. Diabetes mellitus for 20 years pretty well controlled. PAST SURGICAL HISTORY: Cholecystectomy. section. Tubal. REVIEW OF SYSTEMS: CONSTITUTIONAL: Fever. RESPIRATORY: Not coughing, not short of breath. Does not smoke. CVS: No heart problems. However she does sharp chest pain. GI: Nausea and vomiting and diarrhea. NEUROLOGIC: The patient has frequent headaches and seizures and her headaches have been kind of constant for six days which is not unusual. FAMILY HISTORY: Lives with two children and invalid . PHYSICAL EXAMINATION: The patient is alert, oriented, looks chronically ill. Temperature 100.4F, pulse 112, respirations 18, blood pressure 120/70. Pulse ox on room air 95%. HEENT: Pupils equal and reactive to light. NECK: Supple without adenopathy. CHEST: Clear. CVS: No murmurs or gallops. ABDOMEN: Tender all over especially left lower quadrant. Increased hyperbowel sounds. EXTREMITIES: No cyanosis. A large woman. LAB DATA AND TESTS: CT of the head was negative. CT of the abdomen showed no acute process. CT chest showed patchy nodular basilar opacities. Mild fluid distended colon and rectum, hepatomegaly and splenomegaly. IMPRESSION: The patient has got COVID-related GI symptoms, dehydration. PLAN: The patient will be started on some IV fluids, Zofran, continue on home medications. Zithromax will be stopped as she does not have any signs of bacterial pneumonia. PROGNOSIS: Good.
[2019-10-29] MEDS: HUMALOG SQ PRN ×2 (17:17→21:23)
[2019-10-29] MEDS: Januvia 50 MG PO SCH (21:17)
[2019-10-29] MEDS: CLARITIN 10 MG PO SCH (21:18)
[2019-10-30] MEDS ORDERED: Glucophage 500 MG PO SCH (08:00)
[2019-10-30] MEDS: TOPIRAMATE PO SCH (10:41)
[2019-10-30] MEDS: PROTONIX 40 MG IV IV SCH (10:42)
[2019-10-30] MEDS: Paxil 20 MG PO SCH (10:42)
[2019-10-30] MEDS: Lantus Insulin SQ SCH (10:43)
[2019-10-30] MEDS: Zithromax 500 MG/ 250 ML NaCl Premix 500 MG/250 ML IVPB IV SCH (10:44)
[2019-10-30] MEDS: Decadron 4 MG INJ IV SCH (10:45)
[2019-10-30 11:06] VITALS: BP 123/79; PULSE 88; O2SAT 97
--- NOTE | 2019-10-31 08:11 | DS ---
ADMISSION DIAGNOSIS: Over dehydration. DISCHARGE DIAGNOSES: 1) COVID. 2) OVER DEHYDRATION. 3) SEIZURE DISORDER. 4) DIABETES MELLITUS. HISTORY: The patient had vomiting, some diarrhea and could not keep fluids down. has been in the hospital with COVID earlier in the week. I think she has been here in the emergency room twice. She has little help taking care of herself, and two kids at home and was unable to do so and she ended up here. Running a temperature about 100.8F, this infection started approximately 10/21/2019. Positive test was finally done on 10/25/2019. HOSPITAL COURSE: The patient did pretty well with infusion of ringers lactate and some prednisone. She was continued on Metformin, sitagliptin phosphate 100 mg, Topamax 100 mg 2 b.i.d., Zyrtec 10 mg q.d., Paxil 20 mg q.d. glargine insulin 32 units a day. She took her oxygen off. She did not need extra oxygen. She was hydrated with normal saline. The first day she could not eat and the second day she ate. She ate breakfast okay. She felt much better but was just tired and nausea had passed. She was not coughing. She made arrangements for her to go home to the care of her who recovered from COVID also. She is to call back if she starts running a fever, shortness of breath, nausea or vomiting. No additional medicines were prescribed. Follow up with her regular doctor in two to three weeks. PROGNOSIS: Fair.
== END 2019-10-30 12:10 | disposition home or self-care (01) ==
LOC: ED 22:21 → MED SURG 10-28 07:15
PROVIDERS: ADMIT Family Medicine; ATTEND Family Medicine
DX: U07.1 COVID-19 (principal); E86.0 Dehydration; G40.909 Epilepsy, unspecified, not intractable, without status epilepticus; E11.9 Type 2 diabetes mellitus without complications; R51 Headache; R19.7 Diarrhea, unspecified; R11.2 Nausea with vomiting, unspecified; Z79.899 Other long term (current) drug therapy
CPT/HCPCS: 36415; 70450; 71046; 71260; 74176; 80053; 81001; 81025; 82150; 82962; 83036; 83605; 83690; 83735; 83880; 84484; 85025; 85379; 86308; 87040; 87651; 93268; 94762; 96360; 96361; 96365; 96374; 99291; G0378; 36000; 99285; J0456; J1100; J1817; J2405; A9270-GY

== ENCOUNTER 2020-08-14 21:36 | Emergency (ER) | payer OTHER ==
[2020-08-14] MEDS ORDERED: solu-MEDROL 125 MG ONE (21:46)
[2020-08-14] MEDS ORDERED: Pepcid 20 MG VIAL IV ONE (21:46)
[2020-08-14] MEDS ORDERED: BENADRYL 50 MG/ML ONE (21:46)
[2020-08-14] MEDS ORDERED: Sodium Chloride 0.9% 1000 ML 1,000 ML ONE (21:53)
[2020-08-14] MEDS: Sodium Chloride 0.9% 1000 ML 1,000 ML IV STA (21:56)
[2020-08-14] MEDS: BENADRYL 50 MG/ML IV ONE (21:57)
[2020-08-14] MEDS: Pepcid 20 MG VIAL IV ONE (21:57)
[2020-08-14] MEDS: solu-MEDROL 125 MG IV ONE (21:57)
[2020-08-14] MEDS ORDERED: DUONEB 0.5-3 MG/3 ml Neb IH ONE (22:17)
[2020-08-14] MEDS: DUONEB 0.5-3 MG/3 ml Neb IH ONE (22:18)
--- NOTE | 2020-08-14 22:31 | ERPHSYRPT ---
- History of Present Illness Time Seen by Provider: 08/14/20 21:40 Source: patient Exam Limitations: no limitations Patient Subjective Stated Complaint: pt states "I got stung by a honey bee." Triage Nursing Assessment: pt ambulated into the er; pt is axo x4; c/o bee sting; pt states that she is allergic to honey bees; pt states that she used her epi pen 10 minutes prior to arrival; pt states she is SOB; no visible respiratory distress present; no wheezing present; clear lung sounds in all lobes; pt states tightness in throat; pt is 99% on room air; vital wnl Physician History: 44 years old diabetic female with history honeybees allergy presented in the ER after got stung by honeybee on the left arm almost half an hour ago. Immediately she started to feel scratchiness in the throat/throat closing sensation with difficulty breathing and got EpiPen and her symptoms started to improve. Currently she is feeling weak all over but minimal shortness of breath and no throat closing sensation. Denies any chest pain or palpitations. Stable blood pressure and mildly tachycardic on presentation and oxygen saturation 97% on room air. Timing/Duration: hour(s) (0.5), sudden, improved Severity: moderate Associated Symptoms: shortness of breath, cough Allergies/Adverse Reactions: cephalexin [From Keflex] Allergy (Verified 08/14/20 21:42) lamotrigine [From Lamictal] Allergy (Verified 08/14/20 21:42) Sulfa (Sulfonamide Antibiotics) Allergy (Verified 08/14/20 21:42) Home Medications: Metformin HCl 1000 mg [Glucophage 1000 MG] 1,000 mg PO BID 07/25/14 [History] Sitagliptin Phosphate [Januvia] 100 mg PO HS 10/07/14 [History] Topiramate 100 mg [Topamax 100 MG] 200 mg PO BID 10/07/14 [History] Cetirizine HCl [Zyrtec] 10 mg PO HS 04/18/16 [History] Insulin Glargine,Hum.rec.anlog [Basaglar Kwikpen U-100] 50 units SQ DAILY PRN 05/25/18 [History] Ergocalciferol (Vitamin D2) [Vitamin D2] 1,250 mcg PO WEEKLY 08/14/20 [History] Fenofibrate,Micronized [Fenofibrate] 134 mg PO DAILY 08/14/20 [History] Fluoxetine HCl 20 mg PO DAILY 08/14/20 [History] Meloxicam 7.5 mg PO BID PRN 08/14/20 [History] Potassium Chloride 8 meq PO TID 08/14/20 [History] Hx Tetanus, Diphtheria Vaccination/Date Given: Yes Hx Influenza Vaccination/Date Given: No Hx Pneumococcal Vaccination/Date Given: No Travel Risk - International Travel Have you traveled outside of the country in past 3 weeks: No - Coronavirus Screening Are you exhibiting any of the following symptoms?: No Close contact with a COVID-19 positive Pt in past 14-21 Days: No - Vaccine Status Have you recieved a Covid-19 vaccination: No - Review of Systems Constitutional: Fatigue Eyes: No Symptoms Ears, Nose, & Throat: Throat Swelling Respiratory: Dyspnea, Wheezing Cardiac: No Symptoms Abdominal/Gastrointestinal: No Symptoms Genitourinary Symptoms: No Symptoms Musculoskeletal: Myalgias Skin: Skin Lesions Neurological: No Symptoms Psychological: No Symptoms Endocrine: No Symptoms Hematologic/Lymphatic: No Symptoms Immunological/Allergic: Other - Past Medical History Pertinent Past Medical History: Yes Neurological History: Seizures ENT History: No Pertinent History Cardiac History: No Pertinent History Respiratory History: No Pertinent History Endocrine Medical History: Diabetes Type II Musculoskeletal History: No Pertinent History GI Medical History: No Pertinent History History: No Pertinent History Psycho-Social History: Anxiety Female Reproductive Disorders: No Pertinent History Other Medical History: heart murmer - Past Surgical History Past Surgical History: Yes Neuro Surgical History: No Pertinent History Cardiac: No Pertinent History Respiratory: No Pertinent History Gastrointestinal: Cholecystectomy Genitourinary: No Pertinent History Musculoskeletal: No Pertinent History Female Surgical History: Section Other Surgical History: c-sec x2. tubal 05/04/18 pt states she had her tubes removed - Social History Smoking Status: Never smoker Exposure to second hand smoke: No Drug Use: none Patient Lives Alone: No - Female History Hx Now: No - Nursing Vital Signs Nursing Vital Signs: Initial Vital Signs Pulse Rate 97 H 08/14/20 21:42 Respiratory Rate 20 08/14/20 21:42 Blood Pressure 116/66 08/14/20 21:42 O2 Sat by Pulse Oximetry 99 08/14/20 21:42 Pain Scale Pain Intensity 0 - Physical Exam General Appearance: no apparent distress, alert, anxiety Eye Exam: PERRL/EOMI Ears, Nose, Throat Exam: normal ENT inspection, TMs normal, pharyngeal erythema Neck Exam: normal inspection, non-tender, supple, full range of motion Respiratory Exam: normal breath sounds, lungs clear Cardiovascular Exam: regular rate/rhythm, normal heart sounds Gastrointestinal/Abdomen Exam: soft, normal bowel sounds Back Exam: normal inspection, normal range of motion Extremity Exam: normal range of motion, other (Sting tez left arm) Neurologic Exam: alert, oriented x 3, cooperative, batch attendant II-XII nml as tested Skin Exam: normal color SpO2 Interpretation: normal SpO2: 100 O2 Delivery: Room Air - Course EKG Interpreted by Me: RATE ([id number]), Sinus Tach, NORMAL AXIS, prolonged QT interval Ordered Tests: Active Orders 24 hr Category Date Time Status Clother In STAT Care 08/14/20 22:04 Active IV Insertion STAT Care 08/14/20 22:04 Active Oxygen-ED Only Nasal Cannula 2 lpm Care 08/14/20 22:13 Active POCT Glucose Check STAT Care 08/14/20 22:10 Active POCT GLUCOSE Stat Lab 08/14/20 21:52 Completed Respiratory Therapy Assessment DAILY RT 08/14/20 22:20 Active Medication Summary Discontinued Medications Generic Name Dose Route Start Last Admin Trade Name Freq PRN Reason Stop Dose Admin Albuterol/Ipratropium 3 ml 08/14/20 22:09 08/14/20 22:18 Duoneb 0.5-3 Mg/3 Ml Neb IH 08/14/20 22:10 3 ml STAT ONE Administration Albuterol/Ipratropium Confirm 08/14/20 22:17 Duoneb 0.5-3 Mg/3 Ml Neb Administered 08/14/20 22:18 Dose 3 ml IH .STK-MED ONE Diphenhydramine HCl Confirm 08/14/20 21:46 Benadryl 50 Mg/Ml Administered 08/14/20 21:47 Dose 50 mg .ROUTE .STK-MED ONE Diphenhydramine HCl 50 mg 08/14/20 21:56 08/14/20 21:57 Benadryl 50 Mg/Ml IV 08/14/20 21:57 50 mg STAT ONE Administration Famotidine Confirm 08/14/20 21:46 Pepcid 20 Mg Vial Administered 08/14/20 21:47 Dose 20 mg IV .STK-MED ONE Famotidine 20 mg 08/14/20 21:55 08/14/20 21:57 Pepcid 20 Mg Vial IV 08/14/20 21:56 20 mg STAT ONE Administration Sodium Chloride Confirm 08/14/20 21:53 Sodium Chloride 0.9% 1000 Ml Administered 08/14/20 21:54 Dose 1,000 mls @ ud .ROUTE .STK-MED ONE Sodium Chloride 1,000 mls @ 999 mls/hr 08/14/20 21:54 08/14/20 21:56 Sodium Chloride 0.9% 1000 Ml IV 08/14/20 22:54 999 mls/hr .Q1H1M STA Administration Methylprednisolone Sodium Succinate Confirm 08/14/20 21:46 Solu-Medrol 125 Mg Administered 08/14/20 21:47 Dose 125 mg .ROUTE .STK-MED ONE Methylprednisolone Sodium Succinate 125 mg 08/14/20 21:55 08/14/20 21:57 Solu-Medrol 125 Mg IV 08/14/20 21:56 125 mg STAT ONE Administration Lab/Rad Data: Laboratory Results 08/14/20 Range/Units 21:52 POC Glucometer 152 H (74 to 106) mg/dL - Progress Progress: improved, re-examined Progress Note: She is given breathing treatment, Solu-Medrol/Benadryl/Pepcid, observed in the ER for more than 2 hours does not have a relapse. Maintaining oxygen saturation. Lungs bilateral clear to auscultation. Stable blood pressure and tachycardia also improved. We will continue with prednisone/Benadryl/Pepcid to go home and outpatient follow-up. She is advised to use EpiPen as needed. Discussed signs symptoms of worsening needing return to ER which she seems understanding. Counseled pt/family regarding: diagnosis, need for follow-up, rad results - Departure Departure Disposition: Home Clinical Impression: Allergic reaction Qualifiers: Encounter type: initial encounter Qualified Code(s): T78.40XA - Allergy, unspecified, initial encounter Condition: Stable Critical Care Time: Yes Critical Care Time(excluding separately billable procedures): Critical 30-74 mins Referrals: TAYLER DONALD [Primary Care Provider] - Follow Up with PCP/3 days Instructions: Anaphylaxis (DC) Additional Instructions: Continue with prednisone/Benadryl/Pepcid and use inhaler as needed. Follow-up with primary care physician for reevaluation. Return to ER for throat closing sensation, difficulty breathing, wheezing/stridors, swelling of tongue/floor of mouth. Use EpiPen as needed. Monitor your blood sugar regularly and keep an extra dose of antidiabetic medication if not controlled because of you being on steroids. Call your doctor if it stays elevated more than 200. Prescriptions: Diphenhydramine HCl 25 mg [Benadryl 25 mg Capsule] 25 mg PO Q4H PRN PRN #20 capsule PRN Reason: Allergies Prednisone 20 mg [Deltasone 20 mg] 60 mg PO DAILY 5 Days #15 tablet Epinephrine [Epipen] 0.3 mg IM PC PRN 1 Days #0.3 ml PRN Reason: Allergies Famotidine 20 mg [Pepcid 20 MG] 20 mg PO BID #14 tablet Albuterol 8 gm Mdi Hfa [Ventolin Hfa MDI] 8 gm IH Q4H #1 hfa.aer.ad
[2020-08-15 00:37] VITALS: BP 121/66; PULSE 87; O2SAT 95
== END 2020-08-15 00:42 | disposition home or self-care (01) ==
LOC: ED 21:36
DX: T78.40XA Allergy, unspecified, initial encounter (principal)
CPT/HCPCS: 36000; 82947; 93041; 94640; 96374; 96375; 99284; 99291; J1200; J2930; A9270-GY

== ENCOUNTER 2021-03-14 14:37 | Emergency (ER) | payer OTHER ==
--- NOTE | 2021-03-14 15:23 | ERPHSYRPT ---
- History of Present Illness Time Seen by Provider: 03/14/21 14:51 Source: patient Exam Limitations: no limitations Patient Subjective Stated Complaint: Patient states she has been to [facility] for fluid behind her ears. States they gave her prednisone, but she has not taken it and believes she needs an antibiotic. Patient states when she has an infection she starts having seizure activity. Patient states she has had 7 seizures today where she "stare off into space, and claps hands together and holds them tight. Triage Nursing Assessment: Patient to Ed with seizure like activity. PAtient awake alert talking with nurse at this time. VS WNL. pupils reactive Physician History: Patient here with most likely a bilateral otitis media. She describes a feeling of fullness in bilateral ear pain. Patient feels that this infection is triggering her seizures. Patient states that she has a history of seizures managed by Dr. Angelo and Dr. Matos. No falls no trauma. States that her seizures are typically well controlled with Topamax. However whenever she gets an infection she has some breakthrough seizures. She has a stable, normal neurological exam today. The nurse did witness one of the seizures and called me into the room. Patient demonstrated no postictal state. She was immediately awake and alert after her seizure in the emergency department. She immediately had a nonspecific, nonabnormal neurological exam after this. Timing/Duration: today Severity: mild Modifying Factors: Improves With: other Associated Symptoms: denies symptoms Allergies/Adverse Reactions: cephalexin [From Keflex] Allergy (Verified 03/14/21 15:00) lamotrigine [From Lamictal] Allergy (Verified 03/14/21 15:00) Sulfa (Sulfonamide Antibiotics) Allergy (Verified 03/14/21 15:00) Home Medications: Metformin HCl 1000 mg [Glucophage 1000 MG] 1,000 mg PO BID 07/25/14 [History] Sitagliptin Phosphate [Januvia] 100 mg PO HS 10/07/14 [History] Topiramate 100 mg [Topamax 100 MG] 200 mg PO BID 10/07/14 [History] Cetirizine HCl [Zyrtec] 10 mg PO HS 04/18/16 [History] Insulin Glargine,Hum.rec.anlog [Basaglar Kwikpen U-100] 50 units SQ DAILY PRN 05/25/18 [History] Ergocalciferol (Vitamin D2) [Vitamin D2] 1,250 mcg PO WEEKLY 08/14/20 [History] Fenofibrate,Micronized [Fenofibrate] 134 mg PO DAILY 08/14/20 [History] Fluoxetine HCl 20 mg PO DAILY 08/14/20 [History] Meloxicam 7.5 mg PO BID PRN 08/14/20 [History] Potassium Chloride 8 meq PO TID 08/14/20 [History] Hx Tetanus, Diphtheria Vaccination/Date Given: Yes Hx Influenza Vaccination/Date Given: No Hx Pneumococcal Vaccination/Date Given: No Immunizations Up to Date: Yes Travel Risk - International Travel Have you traveled outside of the country in past 3 weeks: No - Coronavirus Screening Are you exhibiting any of the following symptoms?: No Close contact with a COVID-19 positive Pt in past 14-21 Days: No - Vaccine Status Have you recieved a Covid-19 vaccination: No - Review of Systems Constitutional: No Fever, No Chills Eyes: No Symptoms Ears, Nose, & Throat: Ear Pain, Ear Discharge, Other (Ear pain and discharge) Respiratory: No Cough, No Dyspnea Cardiac: No Chest Pain, No Edema, No Syncope Abdominal/Gastrointestinal: No Abdominal Pain, No Nausea, No Vomiting, No Diarrhea Genitourinary Symptoms: No Dysuria Musculoskeletal: No Back Pain, No Neck Pain Skin: No Rash Neurological: Other (Breakthrough seizures in the setting of infection), No Dizziness, No Focal Weakness, No Sensory Changes Psychological: No Symptoms Endocrine: No Symptoms All Other Systems: Reviewed and Negative - Past Medical History Pertinent Past Medical History: Yes Neurological History: Seizures ENT History: No Pertinent History Cardiac History: No Pertinent History Respiratory History: No Pertinent History Endocrine Medical History: Diabetes Type II Musculoskeletal History: No Pertinent History GI Medical History: No Pertinent History History: No Pertinent History Psycho-Social History: Anxiety Female Reproductive Disorders: No Pertinent History Other Medical History: heart murmer - Past Surgical History Past Surgical History: Yes Neuro Surgical History: No Pertinent History Cardiac: No Pertinent History Respiratory: No Pertinent History Gastrointestinal: Cholecystectomy Genitourinary: No Pertinent History Musculoskeletal: No Pertinent History Female Surgical History: Section Other Surgical History: c-sec x2. tubal 05/04/18 pt states she had her tubes removed - Social History Smoking Status: Never smoker Exposure to second hand smoke: No Drug Use: none Patient Lives Alone: No - Female History Hx Last Menstrual Period: 03/14/21 Hx Now: No - Nursing Vital Signs Nursing Vital Signs: Initial Vital Signs Temperature 97.2 F 03/14/21 14:48 Pulse Rate 120 H 03/14/21 14:48 Respiratory Rate 20 03/14/21 14:48 Blood Pressure 166/97 03/14/21 14:48 O2 Sat by Pulse Oximetry 99 03/14/21 14:48 Pain Scale Pain Intensity 0 - Physical Exam General Appearance: no apparent distress, alert Eye Exam: PERRL/EOMI, eyes nml inspection Ears, Nose, Throat Exam: normal ENT inspection, pharynx normal, moist mucous m embranes, other (Bilateral ear effusion without obvious redness.) Neck Exam: normal inspection, non-tender, supple, full range of motion Respiratory Exam: normal breath sounds, lungs clear, No respiratory distress Cardiovascular Exam: regular rate/rhythm, normal heart sounds, normal peripheral pulses Gastrointestinal/Abdomen Exam: soft, normal bowel sounds, No tenderness, No mass Back Exam: normal inspection, normal range of motion, No CVA tenderness, No vertebral tenderness Extremity Exam: normal inspection, normal range of motion, pelvis stable Neurologic Exam: alert, oriented x 3, cooperative, normal mood/affect, nml cerebellar function, nml station & gait, sensation nml, No motor deficits Skin Exam: normal color, warm, dry, No rash Lymphatic Exam: No adenopathy SpO2: 99 - Course Nursing assessment & vital signs reviewed: Yes - Progress Progress: improved Progress Note: 03/14/21 15:28 Patient feels she is having breakthrough seizures secondary to ear infection. Given this we will empirically treat her with amoxicillin for otitis media bilaterally. Proper seizure instructions were given to the patient. No driving, no cooking over an open flame. She was instructed to call her neurologist when she gets home today to see if there is any other further medication to take. However if these are breakthrough seizures secondary to infection I do believe that once the infection is cleared patient will improve. Patient will follow-up with her PCP for neurological reexam in 24 hours. Return here for any new or changing symptoms. Plan of care was discussed with patient and all questions answered. The patient is agreeable to be discharged home and both verbal and printed discharge instructions were provided.The patient agreed to seek outpatient follow up as discussed. The patient was given strict instructions to return to the emergency department for worsening symptoms or any other emergent concerns. The patient verbalized understanding. - Departure Departure Disposition: Home Clinical Impression: Bilateral otitis media Condition: Stable Critical Care Time: No Referrals: TAYLER PASTRANA [Primary Care Provider] - Follow up/PCP as directed Instructions: Seizures, Adult (DC) Prescriptions: Amoxicillin 500 mg Cap [Amoxil 500 mg] 500 mg PO BID #20 cap
[2021-03-14 15:27] VITALS: BP 155/95; PULSE 122
[2021-03-14 15:30] VITALS: O2SAT 99
== END 2021-03-14 15:33 | disposition home or self-care (01) ==
LOC: ED 14:37
DX: H66.93 Otitis media, unspecified, bilateral (principal); G40.909 Epilepsy, unspecified, not intractable, without status epilepticus; E11.9 Type 2 diabetes mellitus without complications; Z79.4 Long term (current) use of insulin; Z79.84 Long term (current) use of oral hypoglycemic drugs; Z79.899 Other long term (current) drug therapy
CPT/HCPCS: 99283

== ENCOUNTER 2021-06-13 16:41 | Emergency (ER) | payer OTHER ==
[2021-06-13] MEDS ORDERED: TORAdol 30 mg Injection ONE (17:17)
[2021-06-13] MEDS ORDERED: TORAdol 30 mg Injection IM ONE (17:17)
[2021-06-13 17:38] LABS: Basophil (Absolute #) 0.05 (0-0.4); Eosinophil % 2.8 % (0.00-5.0); Eosinophil (Absolute #) 0.19 (0-0.5); Hematocrit 41.6 % (35-47); Hemoglobin 13.5 gm/dl (12.0-16.0); Lymphocyte (Absolute #) 1.82 (1.0-4.6); Lymphocytes % 26.5 % (24.0-44.0); Mean Cell Volume 83.2 fl (78-100); Mean Corpuscular Hgb Concent. 32.5 g/dl (32-36); Mean Platelet Volume 10.4 fl (7.5-11.0); Monocyte (Absolute #) 0.52 (0.0-1.3); Monocytes % 7.6 % (0.0-12.0); Neutrophil % 62.4 % (36.0-66.0); Platelet Count 262 K/mm3 (150-450); Red Cell Distribution Width 15.9 % (11.5-14.0); White Blood Count 6.9 K/mm3 (4.0-10.5)
[2021-06-13 18:01] LABS: ANION GAP 13.5 MEQ/L (5-15); BILIRUBIN,TOTAL 0.3 mg/dL (0.2-1.3); Calcium 9.4 mg/dL (8.4-10.2); Creatinine 1 1.29 mg/dL (0.52-1.04); EST GLOMERULAR FILTRATION RATE 47.9 ML/MIN; Potassium 3.9 mmol/L (3.5-5.1); Total Protein 6.8 g/dL (6.3-8.2)
--- NOTE | 2021-06-13 18:49 | ERPHSYRPT ---
- History of Present Illness Time Seen by Provider: 06/13/21 16:46 Historian: patient Exam Limitations: no limitations Patient Subjective Stated Complaint: lower abdominal pain Triage Nursing Assessment: Patient ambulated back to ED and transferred self to bed. Patient A+O x3. Patient's skin pink, warm and dry. Patient complains of constant sharp pain in lower abdomen 11/13. Patient states she had been having pain for the past 3 days, but today is worse. Patient states she has an ovarian cyst on the left side. Abdomen soft and round with BS X 4. Patient denies N/V, but has been having diarrhea. Physician History: 45 years old female presented in the ER with 3 days history of lower abdominal pain more in the suprapubic and left lower quadrant area, sharp moderate to severe intensity without any significant aggravating or relieving factors. Denies any nausea vomiting diarrhea. No pelvic cramping, vaginal bleeding or discharge. Timing/Duration: day(s) (3), gradual onset, worse Quality: sharpness Abdominal Pain Onset Location: LLQ, suprapubic Pain Radiation: no radiation Severity of Pain-Max: severe Severity of Pain-Current: moderate Modifying Factors: Worsens With: palpation Previous symptoms: no prior history Allergies/Adverse Reactions: cephalexin [From Keflex] Allergy (Verified 06/13/21 16:49) lamotrigine [From Lamictal] Allergy (Verified 06/13/21 16:49) Sulfa (Sulfonamide Antibiotics) Allergy (Verified 06/13/21 16:49) Home Medications: Metformin HCl 1000 mg [Glucophage 1000 MG] 1,000 mg PO BID 07/25/14 [History] Sitagliptin Phosphate [Januvia] 100 mg PO HS 10/07/14 [History] Topiramate 100 mg [Topamax 100 MG] 200 mg PO BID 10/07/14 [History] Cetirizine HCl [Zyrtec] 10 mg PO HS 04/18/16 [History] Insulin Glargine,Hum.rec.anlog [Basaglar Kwikpen U-100] 50 units SQ DAILY PRN 05/25/18 [History] Ergocalciferol (Vitamin D2) [Vitamin D2] 1,250 mcg PO WEEKLY 08/14/20 [History] Fenofibrate,Micronized [Fenofibrate] 134 mg PO DAILY 08/14/20 [History] Fluoxetine HCl 20 mg PO DAILY 08/14/20 [History] Meloxicam 7.5 mg PO BID PRN 08/14/20 [History] Potassium Chloride 8 meq PO TID 08/14/20 [History] Hx Tetanus, Diphtheria Vaccination/Date Given: Yes Hx Influenza Vaccination/Date Given: No Hx Pneumococcal Vaccination/Date Given: No Immunizations Up to Date: Yes Travel Risk - International Travel Have you traveled outside of the country in past 3 weeks: No - Coronavirus Screening Are you exhibiting any of the following symptoms?: No Close contact with a COVID-19 positive Pt in past 14-21 Days: No - Vaccine Status Have you recieved a Covid-19 vaccination: No - Review of Systems Constitutional: No Symptoms Ears, Nose, & Throat: No Symptoms Respiratory: No Symptoms Cardiac: No Symptoms Abdominal/Gastrointestinal: Abdominal Pain Genitourinary Symptoms: No Symptoms Musculoskeletal: No Symptoms Skin: No Symptoms Neurological: No Symptoms Endocrine: No Symptoms Hematologic/Lymphatic: No Symptoms Immunological/Allergic: No Symptoms - Past Medical History Pertinent Past Medical History: Yes Neurological History: Seizures ENT History: No Pertinent History Cardiac History: No Pertinent History Respiratory History: No Pertinent History Endocrine Medical History: Diabetes Type II Musculoskeletal History: No Pertinent History GI Medical History: No Pertinent History History: No Pertinent History Psycho-Social History: Anxiety Female Reproductive Disorders: No Pertinent History Other Medical History: heart murmer - Past Surgical History Past Surgical History: Yes Neuro Surgical History: No Pertinent History Cardiac: No Pertinent History Respiratory: No Pertinent History Gastrointestinal: Cholecystectomy Genitourinary: No Pertinent History Musculoskeletal: No Pertinent History Female Surgical History: Section Other Surgical History: c-sec x2. tubal 05/04/18 pt states she had her tubes removed - Social History Smoking Status: Never smoker Exposure to second hand smoke: No Drug Use: none Patient Lives Alone: No - Female History Hx Last Menstrual Period: currently Hx Now: No - Nursing Vital Signs Nursing Vital Signs: Initial Vital Signs Temperature 96.9 F 06/13/21 16:50 Pulse Rate 94 H 06/13/21 16:50 Respiratory Rate 18 06/13/21 16:50 Blood Pressure 145/79 06/13/21 16:50 O2 Sat by Pulse Oximetry 99 06/13/21 16:50 Pain Scale Pain Intensity 6 - Physical Exam General Appearance: no apparent distress, alert Eye Exam: PERRL/EOMI Ears, Nose, Throat Exam: normal ENT inspection Neck Exam: normal inspection, full range of motion Respiratory Exam: normal breath sounds, lungs clear Cardiovascular Exam: regular rate/rhythm, normal heart sounds Gastrointestinal/Abdomen Exam: soft, normal bowel sounds, tenderness (Left lower quadrant) Back Exam: normal inspection, normal range of motion Extremity Exam: normal inspection, normal range of motion, pelvis stable Neurologic Exam: alert, oriented x 3, cooperative Skin Exam: normal color SpO2 Interpretation: normal SpO2: 96 O2 Delivery: Room Air Ordered Tests: Active Orders 24 hr Category Date Time Status ABDOMEN AND PELVIS W/0 CONTRAS [CT] Stat Exams 06/13/21 17:16 Taken CBC W DIFF Stat Lab 06/13/21 17:35 Completed CMP Stat Lab 06/13/21 17:35 Completed Medication Summary Discontinued Medications Generic Name Dose Route Start Last Admin Trade Name Freq PRN Reason Stop Dose Admin Ketorolac Tromethamine 30 mg 06/13/21 17:17 06/13/21 17:18 Ketorolac Tromethamine 30 Mg/Ml Inj IM 06/13/21 17:18 30 mg STAT ONE Administration Ketorolac Tromethamine Confirm 06/13/21 17:17 Ketorolac Tromethamine 30 Mg/Ml Inj Administered 06/13/21 17:18 Dose 30 mg .ROUTE .STK-MED ONE Oxycodone/Acetaminophen 1 tab 06/13/21 20:13 06/13/21 20:18 Oxycodone Hcl/Apap 5 Mg/325 Mg Tablet PO 06/13/21 20:14 1 tab STAT ONE Administration Oxycodone/Acetaminophen Confirm 06/13/21 20:16 Oxycodone Hcl/Apap 5 Mg/325 Mg Tablet Administered 06/13/21 20:17 Dose 1 tab .ROUTE .STK-MED ONE Lab/Rad Data: Laboratory Result Diagrams 06/13/21 17:35 06/13/21 17:35 Laboratory Results 06/13/21 06/13/21 06/13/21 Range/Units 19:49 17:35 17:35 WBC 6.9 (4.0-10.5) K/mm3 RBC 5.00 (4.1-5.4) M/mm3 Hgb 13.5 (12.0-16.0) gm/dl Hct 41.6 (35-47) % MCV 83.2 (78-100) fl MCH 27.0 (26-32) pg MCHC 32.5 (32-36) g/dl RDW 15.9 H (11.5-14.0) % Plt Count 262 (150-450) K/mm3 MPV 10.4 (7.5-11.0) fl Gran % 62.4 (36.0-66.0) % Eos # (Auto) 0.19 (0-0.5) Absolute Lymphs (auto) 1.82 (1.0-4.6) Absolute Monos (auto) 0.52 (0.0-1.3) Lymphocytes % 26.5 (24.0-44.0) % Monocytes % 7.6 (0.0-12.0) % Eosinophils % 2.8 (0.00-5.0) % Basophils % 0.7 (0.0-0.4) % Absolute Granulocytes 4.30 (1.4-6.9) Basophils # 0.05 (0-0.4) Sodium 140 (137-145) mmol/L Potassium 3.9 (3.5-5.1) mmol/L Chloride 108 H (98-107) mmol/L Carbon Dioxide 22 (22-30) mmol/L Anion Gap 13.5 (5-15) MEQ/L BUN 22 H (7-17) mg/dL Creatinine 1.29 H (0.52-1.04) mg/dL Estimated GFR 47.9 ML/MIN Glucose 171 H (74-106) mg/dL Calcium 9.4 (8.4-10.2) mg/dL Total Bilirubin 0.30 (0.2-1.3) mg/dL AST 20 (14-36) U/L ALT 18 (0-35) U/L Alkaline Phosphatase 45 (38-126) U/L Serum Total Protein 6.8 (6.3-8.2) g/dL Albumin 4.0 (3.5-5.0) g/dL Urinalys Dipstick Clnc MAIN LAB Urine Color YELLOW (YELLOW) Urine Appearance SLIGHTLY CLOUDY (CLEAR) Urine pH 8.0 (5-6) Ur Specific Gem 1.015 (1.005-1.025) POC Urine Protein Conf NEGATIVE (Negative) Urine Ketones NEGATIVE (NEGATIVE) Urine Nitrite NEGATIVE (NEGATIVE) Urine Bilirubin NEGATIVE (NEGATIVE) Urine Urobilinogen 0.2 (0-1) mg/dL Urine Leukocytes NEGATIVE (NEGATIVE) Urine WBC (Auto) Pending Urine RBC (Auto) Pending U Epithel Cells (Auto) Pending Urine Bacteria (Auto) Pending Urine RBC TRACE-INTACT (0-5) Kiet/ul Ur Culture Indicated? Pending Urine Glucose 500 (NEGATIVE) mg/dL - Progress Progress: improved, re-examined Progress Note: 06/13/21 20:28 Given symptomatic treatment for pain, on reevaluation feeling better. Grossly unremarkable work-up including CT abdomen pelvis. Recommended supportive care and outpatient follow-up. Discussed signs symptoms of worsening needing return to ER which he seems understanding. Counseled pt/family regarding: lab results, diagnosis, need for follow-up, rad results - Departure Departure Disposition: Home Clinical Impression: Abdominal pain Qualifiers: Abdominal location: left lower quadrant Qualified Code(s): R10.32 - Left lower quadrant pain Condition: Stable Critical Care Time: No Referrals: TAYLER PASTRANA [Primary Care Provider] - Follow Up with PCP/3 days Instructions: Acute Abdomen (Belly Pain), Adult (DC) Additional Instructions: Take Tylenol/ibuprofen as needed for pain. Follow-up with primary care for reevaluation. Return to ER for worsening abdominal pain uncontrolled nausea vomiting diarrhea/fever chills etc.
[2021-06-13] MEDS ORDERED: PERCOCET TABLET 5/325MG PO ONE (20:13)
[2021-06-13] MEDS ORDERED: PERCOCET TABLET 5/325MG ONE (20:16)
[2021-06-13 20:24] LABS: Epithelial Cells RARE /HPF (FEW)
[2021-06-13 20:26] LABS: Appearance SLIGHTLY CLOUDY (CLEAR); Bilirubin NEGATIVE (NEGATIVE); Dipstick done @ ? MAIN LAB; Glucose 500 mg/dL (NEGATIVE); Ketones NEGATIVE (NEGATIVE); Nitrite NEGATIVE (NEGATIVE); Protein,Urine Dip NEGATIVE (Negative); RBC TRACE-INTACT Ery/ul (0-5); Specific Gravity 1.015 (1.005-1.025); Urobilinogen 0.2 mg/dL (0-1)
[2021-06-13 20:28] LABS: Urine Cultured Indicated? NO
[2021-06-13 20:40] VITALS: BP 120/67; PULSE 90; O2SAT 97
--- NOTE | 2021-06-14 08:56 | XRAY ---
Indication: Suprapubic pain. Multiple contiguous axial images obtained through the abdomen and pelvis without contrast. Comparison: April 03, 2020. Lung bases remain clear. Heart not enlarged. Stomach is markedly distended with food/fluid. Noncontrasted stomach and bowel loops nonobstructed again with normal appendix. New tampon in situ. Again 23.7 cm fatty hepatomegaly, 13.3 cm splenomegaly, and cholecystectomy. Remaining liver, pancreas, spleen, adrenal glands, kidneys, ureters, bladder, uterus, and aorta are unremarkable for noncontrast exam. Osseous structures intact again with mild degenerative changes throughout the spine. Impression: 1. Again fatty hepatomegaly, splenomegaly, and chronic bony findings. 2. Remaining CT abdomen/pelvis without contrast exam is negative. Comment: Preliminary interpretation made by [facility]. No critical discrepancy.
== END 2021-06-13 20:40 | disposition home or self-care (01) ==
LOC: ED 16:41
DX: R10.32 Left lower quadrant pain (principal); R10.2 Pelvic and perineal pain; E11.9 Type 2 diabetes mellitus without complications; Z79.4 Long term (current) use of insulin; Z79.899 Other long term (current) drug therapy
CPT/HCPCS: 36415; 74176; 80053; 81015; 85025; 96372; 99284; J1885; A9270-GY

== ENCOUNTER 2022-08-19 21:23 | Emergency (ER) | payer OTHER ==
--- NOTE | 2022-08-19 21:34 | ERPHSYRPT ---
- History of Present Illness Time Seen by Provider: 08/19/22 21:33 Historian: patient Physician History: This is a 46-year-old white female patient who is overweight and is diabetic and has had a cholecystectomy in the past and presents with right upper quadrant abdominal pain. The pain is described as sharp and localized. Patient states that eating chicken nuggets tonight did not change her pain pattern. She still has her appendix in place. She has not had any nausea vomiting or diarrhea. She denies chest pain and she denies shortness of breath. Timing/Duration: yesterday Activities at Onset: none Quality: sharpness, stabbing Abdominal Pain Onset Location: RUQ Pain Radiation: no radiation Severity of Pain-Max: mild (To moderate) Severity of Pain-Current: mild (To moderate) Modifying Factors: Improves With: nothing Associated Symptoms: denies symptoms Previous symptoms: no prior history Allergies/Adverse Reactions: cephalexin [From Keflex] Allergy (Verified 08/19/22 21:40) lamotrigine [From Lamictal] Allergy (Verified 08/19/22 21:40) Sulfa (Sulfonamide Antibiotics) Allergy (Verified 08/19/22 21:40) Home Medications: Metformin HCl 1000 mg [Glucophage 1000 MG] 1,000 mg PO BID 07/25/14 [History] Sitagliptin Phosphate [Januvia] 100 mg PO HS 10/07/14 [History] Topiramate 100 mg [Topamax 100 MG] 200 mg PO BID 10/07/14 [History] Cetirizine HCl [Zyrtec] 10 mg PO HS 04/18/16 [History] Insulin Glargine,Hum.rec.anlog [Basaglar Kwikpen U-100] 50 units SQ DAILY PRN 05/25/18 [History] Ergocalciferol (Vitamin D2) [Vitamin D2] 1,250 mcg PO WEEKLY 08/14/20 [History] Fenofibrate,Micronized [Fenofibrate] 134 mg PO DAILY 08/14/20 [History] Fluoxetine HCl 20 mg PO DAILY 08/14/20 [History] Meloxicam 7.5 mg PO BID PRN 08/14/20 [History] Atorvastatin Calcium [Lipitor 40Mg] 40 mg PO DAILY 08/19/22 [History] Hx Tetanus, Diphtheria Vaccination/Date Given: Yes Hx Influenza Vaccination/Date Given: No Hx Pneumococcal Vaccination/Date Given: No Travel Risk - International Travel Have you traveled outside of the country in past 3 weeks: No - Coronavirus Screening Are you exhibiting any of the following symptoms?: No Close contact with a COVID-19 positive Pt in past 14-21 Days: No - Vaccine Status Have you recieved a Covid-19 vaccination: No - Review of Systems Constitutional: No Symptoms Eyes: No Symptoms Ears, Nose, & Throat: No Symptoms Respiratory: No Symptoms Cardiac: No Symptoms Abdominal/Gastrointestinal: Abdominal Pain (Right upper quadrant sharp pain) Genitourinary Symptoms: No Symptoms Musculoskeletal: No Symptoms Skin: No Symptoms Neurological: No Symptoms Psychological: No Symptoms Endocrine: No Symptoms Hematologic/Lymphatic: No Symptoms Immunological/Allergic: No Symptoms All Other Systems: Reviewed and Negative - Past Medical History Pertinent Past Medical History: Yes Neurological History: Seizures ENT History: No Pertinent History Cardiac History: No Pertinent History Respiratory History: No Pertinent History Endocrine Medical History: Diabetes Type II Musculoskeletal History: No Pertinent History GI Medical History: No Pertinent History History: No Pertinent History Psycho-Social History: Anxiety Female Reproductive Disorders: No Pertinent History Other Medical History: heart murmer - Past Surgical History Past Surgical History: Yes Neuro Surgical History: No Pertinent History Cardiac: No Pertinent History Respiratory: No Pertinent History Gastrointestinal: Cholecystectomy Genitourinary: No Pertinent History Musculoskeletal: No Pertinent History Female Surgical History: Section Other Surgical History: c-sec x2. tubal 05/04/18 pt states she had her tubes removed - Social History Smoking Status: Never smoker Exposure to second hand smoke: No Drug Use: none Patient Lives Alone: No - Nursing Vital Signs Nursing Vital Signs: Initial Vital Signs Temperature 98.4 F 08/19/22 21:38 Pulse Rate 96 H 08/19/22 21:38 Respiratory Rate 18 08/19/22 21:38 Blood Pressure 153/95 08/19/22 21:38 O2 Sat by Pulse Oximetry 97 08/19/22 21:38 Pain Scale Pain Intensity 8 - Physical Exam General Appearance: no apparent distress, alert, anxiety, obese Eye Exam: PERRL/EOMI, eyes nml inspection Ears, Nose, Throat Exam: normal ENT inspection, moist mucous membranes, tonsillar exudate Neck Exam: normal inspection, non-tender, supple Respiratory Exam: normal breath sounds, lungs clear, airway intact, No chest tenderness, No respiratory distress Cardiovascular Exam: regular rate/rhythm, normal heart sounds, normal peripheral pulses Gastrointestinal/Abdomen Exam: soft, normal bowel sounds, No tenderness Pelvic Exam: not done Rectal Exam: not done Back Exam: normal inspection, normal range of motion, No CVA tenderness, No ve rtebral tenderness Extremity Exam: normal inspection, normal range of motion, pelvis stable Neurologic Exam: alert, oriented x 3, cooperative, wire bender II-XII nml as tested, normal mood/affect, nml cerebellar function, nml station & gait Skin Exam: normal color, warm, dry Lymphatic Exam: No adenopathy SpO2 Interpretation: normal O2 Delivery: Room Air - Course Nursing assessment & vital signs reviewed: Yes Ordered Tests: Active Orders 24 hr Category Date Time Status ABDOMEN AND PELVIS W/0 CONTRAS [CT] Stat Exams 08/19/22 22:25 Completed AMYLASE Stat Lab 08/19/22 22:55 Completed CBC W DIFF Stat Lab 08/19/22 22:55 Completed CMP Stat Lab 08/19/22 22:55 Completed LIPASE Stat Lab 08/19/22 22:55 Completed UA W/RFX UR CULTURE Stat Lab 08/19/22 00:01 Completed Lab/Rad Data: Laboratory Result Diagrams 08/19/22 22:55 08/19/22 22:55 Laboratory Results 08/19/22 08/19/22 08/19/22 Range/Units 22:55 22:55 00:01 WBC 7.3 (4.0-10.5) x10^3/uL RBC 4.65 (4.1-5.4) x10^6/uL Hgb 12.6 (12.0-16.0) g/dL Hct 39.9 (35-47) % MCV 85.8 (78-100) fL MCH 27.1 (26-32) pg MCHC 31.6 L (32-36) g/dL RDW 14.7 H (11.5-14.0) % Plt Count 252 (150-450) x10^3/uL MPV 10.2 (7.5-11.0) fL Gran % 60.3 (36.0-66.0) % Immature Gran % (Auto) 0.4 (0.00-0.4) % Nucleat RBC Rel Count 0.0 (0.00-0.1) % Eos # (Auto) 0.15 (0-0.5) x10^3/uL Immature Gran # (Auto) 0.03 (0.00-0.03) x10^3u/L Absolute Lymphs (auto) 2.23 (1.0-4.6) x10^3/uL Absolute Monos (auto) 0.41 (0.0-1.3) x10^3/uL Absolute Nucleated RBC 0.00 (0.00-0.01) x10^3u/L Lymphocytes % 30.8 (24.0-44.0) % Monocytes % 5.7 (0.0-12.0) % Eosinophils % 2.1 (0.00-5.0) % Basophils % 0.7 (0.0-0.4) % Absolute Granulocytes 4.38 (1.4-6.9) x10^3/uL Basophils # 0.05 (0-0.4) x10^3/uL Sodium 140 (137-145) mmol/L Potassium 4.1 (3.5-5.1) mmol/L Chloride 104 (98-107) mmol/L Carbon Dioxide 25 (22-30) mmol/L Anion Gap 14.3 (5-15) MEQ/L BUN 15 (7-17) mg/dL Creatinine 0.98 (0.52-1.04) mg/dL Estimated GFR > 60.0 ML/MIN Glucose 186 H (74-106) mg/dL Calcium 8.7 (8.4-10.2) mg/dL Total Bilirubin 0.20 (0.2-1.3) mg/dL AST 22 (14-36) U/L ALT 23 (0-35) U/L Alkaline Phosphatase 61 (38-126) U/L Serum Total Protein 7.0 (6.3-8.2) g/dL Albumin 3.9 (3.5-5.0) g/dL Amylase 44 (30-110) U/L Lipase 103 (23-300) U/L Urine Color Yellow (Yellow) Urine Appearance Cloudy A (Clear) Urine pH 8.0 (4.6-8.0) Ur Specific [place] 1.015 (1.005-1.030) Urine Protein Negative (Negative) Urine Glucose (UA) Negative (Negative) mg/dL Urine Ketones Negative (Negative) Urine Blood Negative (Negative) Urine Nitrite Negative (Negative) Urine Bilirubin Negative (Negative) Urine Urobilinogen 1.0 A (0.2) mg/dL Ur Leukocyte Esterase Negative (Negative) U Hyaline Cast (Auto) NONE SEEN (0-2) /LPF Urine Microscopic RBC 3-5 (0-5) /HPF Urine Microscopic WBC 0-2 (0-5) /HPF Ur Epithelial Cells Few (None Seen) /HPF Urine Bacteria None Seen (None Seen) /HPF Urine Culture Reflexed NO (NO) - Progress Progress: unchanged, pain not gone completely Progress Note: 08/20/22 00:48 CAT scan of the abdomen pelvis without contrast shows no significant acute abnormality in the abdomen and pelvis. There has been interval development of bilateral simple adnexal cyst when compared to the CAT scan performed on 06/13/2021. This patient's medical issue is 1 of moderate complexity. The level of complexity and the work-up performed based on review of the patient's past medical history, review the patient's medication list, review of the patient's drug allergy list, history of present illness and findings on physical examination. Work-up includes CBC, CMP, amylase, lipase, urinalysis, CT scan of the abdomen pelvis. Patient has no acute or emergent intra-abdominal or intrapelvic findings. I reviewed the above-stated findings. Patient is to follow-up with her primary care provider for further evaluation management. Counseled pt/family regarding: lab results, diagnosis, need for follow-up, rad results Medical Desision Making - Diagnostic Testing Diagnostic test were ordered, analyzed, and reviewed by me: Yes Radiological Interpretation: Reviewed by me, Teleradiologist Report - Risk of complications Minimal Risk: Minimal risk of morbidity - Departure Departure Disposition: Home Clinical Impression: Right sided abdominal pain, Adnexal cyst Condition: Stable Critical Care Time: No Referrals: TAYLER PASTRANA [ACTIVE STAFF] - Follow up/PCP as directed Additional Instructions: Use Tylenol and ibuprofen for pain control. Call your primary care provider on 08/22/2022 to make arranges for follow-up appointment for further evaluation management.
[2022-08-19 21:40] VITALS: O2SAT 97
[2022-08-19 23:02] LABS: Absolute Neutrophil Ct (ANC) 4.38 x10^3/uL (1.4-6.9); BASOPHIL % 0.7 % (0.0-0.4); Basophil (Absolute #) 0.05 x10^3/uL (0-0.4); Eosinophil % 2.1 % (0.00-5.0); Eosinophil (Absolute #) 0.15 x10^3/uL (0-0.5); Hematocrit 39.9 % (35-47); Hemoglobin 12.6 g/dL (12.0-16.0); IMMATURE GRAN # 0.03 x10^3u/L (0.00-0.03); IMMATURE GRAN % 0.4 % (0.00-0.4); Lymphocyte (Absolute #) 2.23 x10^3/uL (1.0-4.6); Lymphocytes % 30.8 % (24.0-44.0); Mean Cell Volume 85.8 fL (78-100); Mean Corpuscular Hemoglobin 27.1 pg (26-32); Mean Corpuscular Hgb Concent. 31.6 g/dL (32-36); Mean Platelet Volume 10.2 fL (7.5-11.0); Monocyte (Absolute #) 0.41 x10^3/uL (0.0-1.3); Monocytes % 5.7 % (0.0-12.0); Neutrophil % 60.3 % (36.0-66.0); Platelet Count 252 x10^3/uL (150-450); Red Blood Count 4.65 x10^6/uL (4.1-5.4); Red Cell Distribution Width 14.7 % (11.5-14.0); White Blood Count 7.3 x10^3/uL (4.0-10.5)
[2022-08-19 23:16] LABS: ALBUMIN 3.9 g/dL (3.5-5.0); ALKALINE PHOSPHATASE 61 U/L (38-126); AMYLASE 44 U/L (30-110); ANION GAP 14.3 MEQ/L (5-15); BLOOD UREA NITROGEN 15 mg/dL (7-17); CHLORIDE 104 mmol/L (98-107); Calcium 8.7 mg/dL (8.4-10.2); Carbon Dioxide 25 mmol/L (22-30); Creatinine 1 0.98 mg/dL (0.52-1.04); EST GLOMERULAR FILTRATION RATE > 60.0 ML/MIN; Glucose 186 mg/dL (74-106); LIPASE 103 U/L (23-300); Potassium 4.1 mmol/L (3.5-5.1); SGOT/AST 22 U/L (14-36); SGPT/ALT 23 U/L (0-35); SODIUM 140 mmol/L (137-145)
--- NOTE | 2022-08-20 00:26 | XRAY ---
CLINICAL HISTORY:Right side abdominal pain COMPARISON:None; TECHNIQUES:CT scan of the abdomen and pelvis was performed without contrast. Coronal and sagittal reconstructive images were also obtained. CTDI: 16.5 mGy, DLP: 985 mGy*cm; FINDINGS: The liver is of average size. No focal or diffuse parenchymal abnormality. The portal vein, intrahepatic biliary radicals and the bile ducts are normal. The spleen, pancreas, and adrenal glands are unremarkable. The kidneys are unremarkable. They are normal in size and shape. No calculi or hydronephrosis. The gallbladder is surgically removed. The ascending colon, the transverse colon, the descending colon, visualized small bowel loops are unremarkable. There is no evidence of significant enlargement of the mesenteric or retroperitoneal lymph nodes. Small uncomplicated umbilical hernia seen through a defect of approximately 10 mm in the anterior abdominal wall. The urinary bladder is unremarkable. The rectosigmoid colon is unremarkable. The uterus appears unremarkable. A well-defined cystic attenuation lesion is seen in right adnexa, measuring 28 x 30 mm. Similar well-defined cystic attenuation lesion is seen in left adnexa, measuring 25 x 24 mm. No evidence of pelvic lymphadenopathy. No definite bony abnormalities could be depicted. IMPRESSION: No significant acute abnormality detected in abdomen and pelvis. Interval development of bilateral simple adnexal cysts in comparison to previous CT study dated 06/13/21. US correlation is recommended. Electronically Signed by: Ramiro Geiger MD. (08/19/2022 23:19:07 SIGN LANGUAGE INTERPRETER)
[2022-08-20 00:30] LABS: Appearance Cloudy (Clear); Bacteria None Seen /HPF (None Seen); Bilirubin Negative (Negative); Blood Negative (Negative); Epithelial Cells Few /HPF (None Seen); Glucose, Urine Negative (Negative); Hyaline Casts NONE SEEN /LPF (0-2); Ketones Negative (Negative); Leukocyte Esterase Negative (Negative); Nitrite Negative (Negative); Protein,Urine Dip Negative (Negative); Specific Gravity 1.015 (1.005-1.030); WBC 0-2 /HPF (0-5)
[2022-08-20 00:31] LABS: ADD URINE CULTURE? NO (NO)
[2022-08-20 00:40] VITALS: BP 126/97; PULSE 72
== END 2022-08-20 01:31 | disposition home or self-care (01) ==
LOC: ED 21:23
DX: N83.202 Unspecified ovarian cyst, left side (principal); N83.201 Unspecified ovarian cyst, right side; R10.11 Right upper quadrant pain; E11.9 Type 2 diabetes mellitus without complications; Z79.84 Long term (current) use of oral hypoglycemic drugs; Z79.4 Long term (current) use of insulin; Z79.899 Other long term (current) drug therapy; Z28.310 Unvaccinated for COVID-19
CPT/HCPCS: 36415; 74176; 80053; 81001; 82150; 83690; 85025; 99283

== ENCOUNTER 2023-03-09 22:18 | Observation (INO) | payer OTHER ==
--- NOTE | 2023-03-09 22:28 | ERPHSYRPT ---
- History of Present Illness Time Seen by Provider: 03/09/23 22:28 Source: patient Exam Limitations: no limitations Physician History: This is an overweight 47-year-old white female patient who is diabetic and has a history of seizure disorders and anxiety issues. Patient has a new glucometer. Patient has been eating well per her report and taking her medications (di abetic) the way she is supposed to. This morning her blood sugar was 140 and later in the day was 120. However this evening, prior to arrival her blood sugar monitor was reading 42. Patient then ate more snacks and on arrival to our emergency department the Accu-Chek reading for her blood sugar was 73. Patient does have a cough and has been diagnosed recently with a pneumonia and has been taking doxycycline for this the last 2 to 3 days. She has no chest pain. She has no shortness of breath. Timing/Duration: today Severity: mild Associated Symptoms: denies symptoms Allergies/Adverse Reactions: cephalexin [From Keflex] Allergy (Verified 03/09/23 22:21) lamotrigine [From Lamictal] Allergy (Verified 03/09/23 22:21) Sulfa (Sulfonamide Antibiotics) Allergy (Verified 03/09/23 22:21) Home Medications: Metformin HCl 1000 mg [Glucophage 1000 MG] 1,000 mg PO BID 07/25/14 [History] Sitagliptin Phosphate [Januvia] 100 mg PO HS 10/07/14 [History] Topiramate 100 mg [Topamax 100 MG] 200 mg PO BID 10/07/14 [History] Cetirizine HCl [Zyrtec] 10 mg PO HS 04/18/16 [History] Insulin Glargine,Hum.rec.anlog [Basaglar Kwikpen U-100] 50 units SQ DAILY PRN 0 05/25/18 [History] Ergocalciferol (Vitamin D2) [Vitamin D2] 1,250 mcg PO WEEKLY 08/14/20 [History] Fenofibrate,Micronized [Fenofibrate] 134 mg PO DAILY 08/14/20 [History] Fluoxetine HCl 20 mg PO DAILY 08/14/20 [History] Meloxicam 7.5 mg PO BID PRN 08/14/20 [History] Atorvastatin Calcium [Lipitor 40Mg] 40 mg PO DAILY 06/16/23 [History] Doxycycline Hyclate 100 mg [Vibramycin 100 MG] 100 mg PO BID 03/09/23 [History] Venlafaxine HCl [Venlafaxine HCl ER] 150 mg PO DAILY 03/09/23 [History] Hx Tetanus, Diphtheria Vaccination/Date Given: Yes Hx Influenza Vaccination/Date Given: No Hx Pneumococcal Vaccination/Date Given: No Travel Risk - International Travel Have you traveled outside of the country in past 3 weeks: No - Coronavirus Screening Are you exhibiting any of the following symptoms?: No Close contact with a COVID-19 positive Pt in past 14-21 Days: No - Vaccine Status Have you recieved a Covid-19 vaccination: No - Review of Systems Constitutional: No Symptoms Eyes: No Symptoms Ears, Nose, & Throat: No Symptoms Respiratory: No Symptoms Cardiac: No Symptoms Abdominal/Gastrointestinal: No Symptoms Genitourinary Symptoms: No Symptoms Musculoskeletal: No Symptoms Skin: No Symptoms Neurological: No Symptoms Psychological: No Symptoms Endocrine: No Symptoms Hematologic/Lymphatic: No Symptoms Immunological/Allergic: No Symptoms All Other Systems: Reviewed and Negative - Past Medical History Pertinent Past Medical History: Yes Neurological History: Seizures ENT History: No Pertinent History Cardiac History: No Pertinent History Respiratory History: No Pertinent History Endocrine Medical History: Diabetes Type II Musculoskeletal History: No Pertinent History GI Medical History: No Pertinent History History: No Pertinent History Psycho-Social History: Anxiety Female Reproductive Disorders: No Pertinent History Other Medical History: heart murmer - Past Surgical History Past Surgical History: Yes Neuro Surgical History: No Pertinent History Cardiac: No Pertinent History Respiratory: No Pertinent History Gastrointestinal: Cholecystectomy Genitourinary: No Pertinent History Musculoskeletal: No Pertinent History Female Surgical History: Section Other Surgical History: c-sec x2. tubal 05/04/18 pt states she had her tubes removed - Social History Smoking Status: Never smoker Exposure to second hand smoke: No Drug Use: none Patient Lives Alone: No - Nursing Vital Signs Nursing Vital Signs: Initial Vital Signs Temperature 97.8 F 03/09/23 22:20 Pulse Rate 85 03/09/23 22:20 Respiratory Rate 18 03/09/23 22:20 Blood Pressure 152/89 03/09/23 22:20 O2 Sat by Pulse Oximetry 99 03/09/23 22:20 Pain Scale Pain Intensity 3 - Physical Exam General Appearance: no apparent distress, alert, anxiety, obese Eye Exam: PERRL/EOMI, eyes nml inspection Ears, Nose, Throat Exam: normal ENT inspection, moist mucous membranes Neck Exam: normal inspection, non-tender, supple, full range of motion Respiratory Exam: normal breath sounds, lungs clear, airway intact, No chest tenderness, No respiratory distress Cardiovascular Exam: regular rate/rhythm, normal heart sounds, normal peripheral pulses Gastrointestinal/Abdomen Exam: soft, normal bowel sounds, No tenderness Pelvic Exam: not done Rectal Exam: not done Back Exam: normal inspection, normal range of motion, No CVA tenderness, No vertebral tenderness Extremity Exam: normal inspection, normal range of motion, pelvis stable Neurologic Exam: alert, oriented x 3, cooperative, outdoor adventure guides II-XII nml as tested, normal mood/affect, nml cerebellar function, nml station & gait, sensation nml Skin Exam: normal color, warm, dry Lymphatic Exam: No adenopathy SpO2 Interpretation: normal O2 Delivery: Room Air - Course Nursing assessment & vital signs reviewed: Yes Ordered Tests: Active Orders 24 hr Category Date Time Status Pulse Oximetry (ED) STAT Care 03/09/23 22:56 Active Telemetry q4h Care 03/09/23 23:30 Active CBC W DIFF Stat Lab 03/09/23 22:58 Completed CMP Stat Lab 03/09/23 22:58 Completed MAGNESIUM Stat Lab 03/09/23 22:58 Completed POCT GLUCOSE Stat Lab 03/09/23 22:23 Completed POCT GLUCOSE Stat Lab 03/09/23 23:22 Completed POCT GLUCOSE Stat Lab 03/10/23 00:27 Completed Medication Summary Generic Name Dose Route Start Last Admin Trade Name Freq PRN Reason Stop Dose Admin Sodium Chloride 1,000 mls @ 100 mls/hr 03/09/23 23:00 03/09/23 23:23 Sodium Chloride 0.9% 1000 Ml IV 04/08/23 22:59 100 mls/hr .Q10H LAURA Administration Potassium Chloride 20 meq in 100 mls @ 50 mls/hr 03/09/23 23:30 03/09/23 23: 50 Potassium Chloride 20 Meq In Water 100ml IV 03/10/23 01:29 50 mls/hr STAT ONE Administration Discontinued Medications Generic Name Dose Route Start Last Admin Trade Name Freq PRN Reason Stop Dose Admin Dextrose 50 ml 03/09/23 22:56 03/09/23 23:23 Dextrose 50%-Water 50 Ml Abboject IV 03/09/23 22:57 50 ml STAT ONE Administration Dextrose Confirm 03/09/23 23:19 Dextrose 50%-Water 50 Ml Abboject Administered 03/09/23 23:20 Dose 50 ml IV .STK-MED ONE Dextrose Confirm 03/10/23 00:30 Dextrose 50%-Water 50 Ml Abboject Administered 03/10/23 00:31 Dose 50 ml IV .STK-MED ONE Dextrose 50 ml 03/10/23 00:36 03/10/23 00:38 Dextrose 50%-Water 50 Ml Abboject IV 03/10/23 00:37 50 ml STAT ONE Administration Potassium Chloride Confirm 03/09/23 23:46 Potassium Chloride 20 Meq In Water 100ml Administered 03/09/23 23:47 Dose 100 mls @ ud IV .STK-MED ONE Potassium Chloride 20 meq 03/09/23 23:30 03/09/23 23:50 Potassium Chloride Tab 10 Meq Tab PO 03/09/23 23:31 20 meq STAT ONE Administration Potassium Chloride Confirm 03/09/23 23:46 Potassium Chloride Tab 10 Meq Tab Administered 03/09/23 23:47 Dose 20 meq PO .STK-MED ONE Lab/Rad Data: Laboratory Result Diagrams 03/09/23 22:58 03/09/23 22:58 Laboratory Results 03/10/23 03/09/23 03/09/23 Range/Units 00:27 23:22 22:58 WBC (4.0-10.5) x10^3/uL RBC (4.1-5.4) x10^6/uL Hgb (12.0-16.0) g/dL Hct (35-47) % MCV (78-100) fL MCH (26-32) pg MCHC (32-36) g/dL RDW (11.5-14.0) % Plt Count (150-450) x10^3/uL MPV (7.5-11.0) fL Gran % (36.0-66.0) % Immature Gran % (Auto) (0.00-0.4) % Nucleat RBC Rel Count (0.00-0.1) % Eos # (Auto) (0-0.5) x10^3/uL Immature Gran # (Auto) (0.00-0.03) x10^3u/L Absolute Lymphs (auto) (1.0-4.6) x10^3/uL Absolute Monos (auto) (0.0-1.3) x10^3/uL Absolute Nucleated RBC (0.00-0.01) x10^3u/L Lymphocytes % (24.0-44.0) % Monocytes % (0.0-12.0) % Eosinophils % (0.00-5.0) % Basophils % (0.0-0.4) % Absolute Granulocytes (1.4-6.9) x10^3/uL Basophils # (0-0.4) x10^3/uL Sodium 139 (137-145) mmol/L Potassium 2.8 L* (3.5-5.1) mmol/L Chloride 105 (98-107) mmol/L Carbon Dioxide 24 (22-30) mmol/L Anion Gap 13.2 (5-15) MEQ/L BUN 18 H (7-17) mg/dL Creatinine 0.92 (0.52-1.04) mg/dL Estimated GFR 78.3 ML/MIN Glucose 61 L (74-106) mg/dL POC Glucometer 40 L* 49 L* (74 to 106) mg/dL Calcium 9.8 (8.4-10.2) mg/dL Magnesium 1.7 (1.6-2.3) mg/dL Total Bilirubin 0.30 (0.2-1.3) mg/dL AST 22 (14-36) U/L ALT 23 (0-35) U/L Alkaline Phosphatase 58 (38-126) U/L Serum Total Protein 7.9 (6.3-8.2) g/dL Albumin 4.4 (3.5-5.0) g/dL 03/09/23 03/09/23 Range/Units 22:58 22:23 WBC 9.1 (4.0-10.5) x10^3/uL RBC 4.93 (4.1-5.4) x10^6/uL Hgb 13.3 (12.0-16.0) g/dL Hct 42.0 (35-47) % MCV 85.2 (78-100) fL MCH 27.0 (26-32) pg MCHC 31.7 L (32-36) g/dL RDW 14.4 H (11.5-14.0) % Plt Count 364 (150-450) x10^3/uL MPV 9.8 (7.5-11.0) fL Gran % 65.2 (36.0-66.0) % Immature Gran % (Auto) 0.7 H (0.00-0.4) % Nucleat RBC Rel Count 0.0 (0.00-0.1) % Eos # (Auto) 0.18 (0-0.5) x10^3/uL Immature Gran # (Auto) 0.06 H (0.00-0.03) x10^3u/L Absolute Lymphs (auto) 2.34 (1.0-4.6) x10^3/uL Absolute Monos (auto) 0.53 (0.0-1.3) x10^3/uL Absolute Nucleated RBC 0.00 (0.00-0.01) x10^3u/L Lymphocytes % 25.6 (24.0-44.0) % Monocytes % 5.8 (0.0-12.0) % Eosinophils % 2.0 (0.00-5.0) % Basophils % 0.7 (0.0-0.4) % Absolute Granulocytes 5.96 (1.4-6.9) x10^3/uL Basophils # 0.06 (0-0.4) x10^3/uL Sodium (137-145) mmol/L Potassium (3.5-5.1) mmol/L Chloride (98-107) mmol/L Carbon Dioxide (22-30) mmol/L Anion Gap (5-15) MEQ/L BUN (7-17) mg/dL Creatinine (0.52-1.04) mg/dL Estimated GFR ML/MIN Glucose (74-106) mg/dL POC Glucometer 73 L (74 to 106) mg/dL Calcium (8.4-10.2) mg/dL Magnesium (1.6-2.3) mg/dL Total Bilirubin (0.2-1.3) mg/dL AST (14-36) U/L ALT (0-35) U/L Alkaline Phosphatase (38-126) U/L Serum Total Protein (6.3-8.2) g/dL Albumin (3.5-5.0) g/dL - Progress Progress: improved Progress Note: 03/09/23 23:18 This patient's medical issue is 1 of moderate complexity. The level complex in the workup performed is based on review the patient's past medical history, review the patient's medication list, review of patient's drug allergy list, history of present illness and physical findings on examination. The workup in this patient includes placement of an intravenous line, infusion of normal saline solution, infusion of dextrose 50, CBC, CMP, urinalysis, magnesium level. 03/10/23 01:02 I have interpreted the patient's laboratory data. Despite the patient receiving dextrose boluses, the patient's blood sugar still remains low enough for her to have symptoms. I spoke with Dr. King, our telehospitalist on at this time. We agree that we can place this patient in observation and run a continuous infusion of dextrose with potassium present. We will order Accu-Cheks and repeat labs this morning Counseled pt/family regarding: lab results, diagnosis, need for follow-up Medical Desision Making - Independent Historian Additional History obtained from: Spouse - Diagnostic Testing Diagnostic test were ordered, analyzed, and reviewed by me: Yes - Risk of complications The pt has a high risk of morbidity or mortality based on: Decision regarding hospitilization or escalation of hosp level of care - Departure Departure Disposition: Observation Clinical Impression: Hypoglycemia Condition: Fair Critical Care Time: No Referrals: VICKY FRAIRE DO [Primary Care Provider] - Follow up/PCP as directed
[2023-03-09] MEDS ORDERED: D50W 50 ml Abboject IV ONE ×2 (22:56→23:19)
[2023-03-09] MEDS ORDERED: Sodium Chloride 0.9% 1000 ML 1,000 ML IV SCH (23:00)
[2023-03-09 23:04] LABS: Absolute Neutrophil Ct (ANC) 5.96 x10^3/uL (1.4-6.9); BASOPHIL % 0.7 % (0.0-0.4); Basophil (Absolute #) 0.06 x10^3/uL (0-0.4); Eosinophil (Absolute #) 0.18 x10^3/uL (0-0.5); Hemoglobin 13.3 g/dL (12.0-16.0); IMMATURE GRAN # 0.06 x10^3u/L (0.00-0.03); IMMATURE GRAN % 0.7 % (0.00-0.4); Lymphocyte (Absolute #) 2.34 x10^3/uL (1.0-4.6); Lymphocytes % 25.6 % (24.0-44.0); Mean Cell Volume 85.2 fL (78-100); Mean Corpuscular Hgb Concent. 31.7 g/dL (32-36); Mean Platelet Volume 9.8 fL (7.5-11.0); Monocyte (Absolute #) 0.53 x10^3/uL (0.0-1.3); Monocytes % 5.8 % (0.0-12.0); Neutrophil % 65.2 % (36.0-66.0); Platelet Count 364 x10^3/uL (150-450); Red Blood Count 4.93 x10^6/uL (4.1-5.4); Red Cell Distribution Width 14.4 % (11.5-14.0); White Blood Count 9.1 x10^3/uL (4.0-10.5)
[2023-03-09] MEDS ORDERED: Sodium Chloride 0.9% 1000 ML 1,000 ML ONE (23:19)
[2023-03-09 23:21] LABS: ALBUMIN 4.4 g/dL (3.5-5.0); ANION GAP 13.2 MEQ/L (5-15); BILIRUBIN,TOTAL 0.3 mg/dL (0.2-1.3); Calcium 9.8 mg/dL (8.4-10.2); Creatinine 1 0.92 mg/dL (0.52-1.04); EST GLOMERULAR FILTRATION RATE 78.3 ML/MIN; MAGNESIUM 1.7 mg/dL (1.6-2.3); Total Protein 7.9 g/dL (6.3-8.2)
[2023-03-09 23:26] LABS: Potassium 2.8 mmol/L (3.5-5.1)
[2023-03-09] MEDS ORDERED: Klor Con PO ONE ×2 (23:30→23:46)
[2023-03-09] MEDS ORDERED: POTASSIUM CHLORIDE 20 mEq IN WATER 100ML 20 MEQ/100 ML BAG IV ONE (23:30)
[2023-03-09] MEDS ORDERED: POTASSIUM CHLORIDE 20 mEq IN WATER 100ML 100 ML IV ONE (23:46)
[2023-03-10] MEDS ORDERED: D50W 50 ml Abboject IV ONE ×4 (00:30→02:43)
[2023-03-10] MEDS ORDERED: Docusate Sodium 100 MG PO PRN (01:54)
[2023-03-10] MEDS ORDERED: TYLENOL 325 MG PO PRN ×2 (01:54→02:00)
[2023-03-10] MEDS ORDERED: DEXTROSE 5% -NACL 0.9% 1000 ML + KCl 20 MEQ 1,000 ML IV SCH (02:00)
[2023-03-10] MEDS ORDERED: Zofran 4 MG/2 ML VIAL IV PRN (02:00)
--- NOTE | 2023-03-10 02:03 | PCM.HP ---
History of Present Illness - Chief Complaint Chief Complaint: hypoglycemia Date: 03/10/23 History of Present Illness: Ms. Ambriz is a 47 year old female with a past medical history significant for anxiety, seizures and diabetes with recent diagnosis of pneumonia placed on oral antibiotics who presents to the hospital after noticing that her sugars were dropping significantly down into the 40-50s. She tried to eat something sweet but her sugars continued to run low. No chest pain or shortness of breath. No fever/chills. No changes in dietary habits. - Review of Systems Constitutional: No Symptoms Eyes: No Symptoms Ears, Nose, & Throat: No Symptoms Respiratory: No Cough, No Orthopnea, No Short Of Breath Cardiac: No Chest Pain, No Edema Abdominal/Gastrointestinal: No Abdominal Pain, No Nausea, No Vomiting, No Diarrhea Genitourinary Symptoms: No Dysuria, No Frequency Musculoskeletal: No Symptoms Skin: No Symptoms Neurological: No Symptoms Psychological: Anxiety Endocrine: No Symptoms Hematologic/Lymphatic: No Symptoms Medications & Allergies Home Medications: Home Medication List Metformin HCl 1000 mg [Glucophage 1000 MG] 1,000 mg PO BID 07/25/14 [History Confirmed 03/09/23] Sitagliptin Phosphate [Januvia] 100 mg PO HS 10/07/14 [History Confirmed 03/09/23] Topiramate 100 mg [Topamax 100 MG] 200 mg PO BID 10/07/14 [History Confirmed 03/09/23] Cetirizine HCl [Zyrtec] 10 mg PO HS 04/18/16 [History Confirmed 03/09/23] Insulin Glargine,Hum.rec.anlog [Carlitoaglanahi Hong U-100] 50 units SQ DAILY PRN 05/25/18 [History Confirmed 03/09/23] Ergocalciferol (Vitamin D2) [Vitamin D2] 1,250 mcg PO WEEKLY 08/14/20 [History Confirmed 03/09/23] Fenofibrate,Micronized [Fenofibrate] 134 mg PO DAILY 08/14/20 [History Confirmed 03/09/23] Fluoxetine HCl 20 mg PO DAILY 08/14/20 [History Confirmed 03/09/23] Meloxicam 7.5 mg PO BID PRN 08/14/20 [History Confirmed 03/09/23] EPINEPHrine [Epipen] 0.3 mg IM PC PRN 1 Days #0.3 ml 08/15/20 [Rx Confirmed 03/09/23] Atorvastatin Calcium [Lipitor 40Mg] 40 mg PO DAILY 08/19/22 [History Confirmed 03/09/23] Doxycycline Hyclate 100 mg [Vibramycin 100 MG] 100 mg PO BID 03/09/23 [History Confirmed 03/09/23] Venlafaxine HCl [Venlafaxine HCl ER] 150 mg PO DAILY 03/09/23 [History Confirmed 03/09/23] Allergies/Adverse Reactions: Allergies Allergy/AdvReac Type Severity Reaction Status Date / Time cephalexin [From Keflex] Allergy Verified 03/09/23 22:21 lamotrigine [From Lamictal] Allergy Verified 03/09/23 22:21 Sulfa (Sulfonamide Allergy Verified 03/09/23 22:21 Antibiotics) - Past Medical History Past Medical History: Yes Neurological History: Seizures ENT History: No Pertinent History Cardiac History: No Pertinent History Respiratory History: No Pertinent History Endocrine Medical History: Diabetes Type II Musculoskelatal History: No Pertinent History GI Medical History: No Pertinent History History: No Pertinent History Pyscho-Social History: Anxiety Reproductive Disorders: No Pertinent History Comment: heart murmer - Female History Are you now?: No - Past Surgical History Past Surgical History: Yes Neuro Surgical History: No Pertinent History Cardiac History: No Pertinent History Respiratory Surgery: No Pertinent History GI Surgical History: Cholecystectomy Genitourinary Surgical Hx: No Pertinent History Musculskeletal Surgical Hx: No Pertinent History Female Surgical History: Section Other Surgical History: c-sec x2. tubal 05/04/18 pt states she had her tubes removed - Social History Smoking Status: Never smoker Exposure to second hand smoke: No Alcohol: None Drug Use: none - Physical Exam Vital Signs: Vital Signs - 24 hr Temp Pulse Resp BP BP Pulse Ox 03/10/23 01:30 80 15 138/79 100 03/10/23 01:15 75 15 135/70 100 03/10/23 01:00 80 11 L 120/77 100 03/10/23 00:45 79 18 125/74 95 03/10/23 00:31 75 16 166/83 94 L 03/10/23 00:15 129/83 94 L 03/10/23 00:00 73 138/80 95 01/04/24 23:45 132/78 97 01/04/24 23:30 114/73 95 03/09/23 23:16 96 03/09/23 23:15 131/83 93 L 03/09/23 23:00 81 136/79 96 03/09/23 22:45 83 121/93 96 03/09/23 22:30 85 122/80 98 03/09/23 22:20 97.8 F 85 18 152/89 99 General Appearance: no apparent distress Neurologic Exam: alert Neck Exam: supple Respiratory Exam: No accessory muscle use, No rhonchi, No wheezing Cardiovascular Exam: regular rate/rhythm Gastrointestinal/Abdomen Exam: soft Extremity Exam: No pedal edema, No swelling, No tenderness Skin Exam: normal color, warm, dry Results - Labs Lab/Micro Results: Lab Results-Last 24 Hours 03/09/23 03/09/23 03/09/23 Range/Units 22:23 22:58 22:58 WBC 9.1 (4.0-10.5) x10^3/uL RBC 4.93 (4.1-5.4) x10^6/uL Hgb 13.3 (12.0-16.0) g/dL Hct 42.0 (35-47) % MCV 85.2 (78-100) fL MCH 27.0 (26-32) pg MCHC 31.7 L (32-36) g/dL RDW 14.4 H (11.5-14.0) % Plt Count 364 (150-450) x10^3/uL MPV 9.8 (7.5-11.0) fL Gran % 65.2 (36.0-66.0) % Immature Gran % (Auto) 0.7 H (0.00-0.4) % Nucleat RBC Rel Count 0.0 (0.00-0.1) % Eos # (Auto) 0.18 (0-0.5) x10^3/uL Immature Gran # (Auto) 0.06 H (0.00-0.03) x10^3u/L Absolute Lymphs (auto) 2.34 (1.0-4.6) x10^3/uL Absolute Monos (auto) 0.53 (0.0-1.3) x10^3/uL Absolute Nucleated RBC 0.00 (0.00-0.01) x10^3u/L Lymphocytes % 25.6 (24.0-44.0) % Monocytes % 5.8 (0.0-12.0) % Eosinophils % 2.0 (0.00-5.0) % Basophils % 0.7 (0.0-0.4) % Absolute Granulocytes 5.96 (1.4-6.9) x10^3/uL Basophils # 0.06 (0-0.4) x10^3/uL Sodium 139 (137-145) mmol/L Potassium 2.8 L* (3.5-5.1) mmol/L Chloride 105 (98-107) mmol/L Carbon Dioxide 24 (22-30) mmol/L Anion Gap 13.2 (5-15) MEQ/L BUN 18 H (7-17) mg/dL Creatinine 0.92 (0.52-1.04) mg/dL Estimated GFR 78.3 ML/MIN Glucose 61 L (74-106) mg/dL POC Glucometer 73 L (74 to 106) mg/dL Calcium 9.8 (8.4-10.2) mg/dL Magnesium 1.7 (1.6-2.3) mg/dL Total Bilirubin 0.30 (0.2-1.3) mg/dL AST 22 (14-36) U/L ALT 23 (0-35) U/L Alkaline Phosphatase 58 (38-126) U/L Serum Total Protein 7.9 (6.3-8.2) g/dL Albumin 4.4 (3.5-5.0) g/dL 03/09/23 03/10/23 03/10/23 Range/Units 23:22 00:27 01:14 WBC (4.0-10.5) x10^3/uL RBC (4.1-5.4) x10^6/uL Hgb (12.0-16.0) g/dL Hct (35-47) % MCV (78-100) fL MCH (26-32) pg MCHC (32-36) g/dL RDW (11.5-14.0) % Plt Count (150-450) x10^3/uL MPV (7.5-11.0) fL Gran % (36.0-66.0) % Immature Gran % (Auto) (0.00-0.4) % Nucleat RBC Rel Count (0.00-0.1) % Eos # (Auto) (0-0.5) x10^3/uL Immature Gran # (Auto) (0.00-0.03) x10^3u/L Absolute Lymphs (auto) (1.0-4.6) x10^3/uL Absolute Monos (auto) (0.0-1.3) x10^3/uL Absolute Nucleated RBC (0.00-0.01) x10^3u/L Lymphocytes % (24.0-44.0) % Monocytes % (0.0-12.0) % Eosinophils % (0.00-5.0) % Basophils % (0.0-0.4) % Absolute Granulocytes (1.4-6.9) x10^3/uL Basophils # (0-0.4) x10^3/uL Sodium (137-145) mmol/L Potassium (3.5-5.1) mmol/L Chloride (98-107) mmol/L Carbon Dioxide (22-30) mmol/L Anion Gap (5-15) MEQ/L BUN (7-17) mg/dL Creatinine (0.52-1.04) mg/dL Estimated GFR ML/MIN Glucose (74-106) mg/dL POC Glucometer 49 L* 40 L* 112 H (74 to 106) mg/dL Calcium (8.4-10.2) mg/dL Magnesium (1.6-2.3) mg/dL Total Bilirubin (0.2-1.3) mg/dL AST (14-36) U/L ALT (0-35) U/L Alkaline Phosphatase (38-126) U/L Serum Total Protein (6.3-8.2) g/dL Albumin (3.5-5.0) g/dL Assessment/Plan (1) Hypoglycemia Current Visit: Yes Status: Acute Assessment & Plan: Likely from diabetic medications and reduced excretion due to recent pneumonia/antibiotics 1. Admit to observation status 2. D5NS 3. Hold diabetic meds 4. Monitor blood sugars closely Code(s): E16.2 - HYPOGLYCEMIA, UNSPECIFIED (2) Hypokalemia Current Visit: Yes Status: Acute Assessment & Plan: Likely from GI losses 1. Replete K with IVFs 2. Check Mg lvl 3. Watch electrolytes closely Code(s): E87.6 - HYPOKALEMIA (3) Chronic kidney disease, stage 2 (mild) Current Visit: Yes Status: Acute Assessment & Plan: Creatinine 0.9 --> GFR ~ 78 mL/min likely from diabetic nephropathy 1. IVFs 2. Check urine protein:Cr ratio 3. Watch creatinine levels Code(s): N18.2 - CHRONIC KIDNEY DISEASE, STAGE 2 (MILD) (4) Type 2 diabetes mellitus with diabetic chronic kidney disease Current Visit: Yes Status: Acute Qualifiers: Chronic kidney disease stage: stage 2 (mild) Code(s): E11.22 - TYPE 2 DIABETES MELLITUS W DIABETIC CHRONIC KIDNEY DISEASE Telemedicine Encounter - Telemedicine Encounter Telemedicine Encounter: The entirety of this encounter was performed via Telemedicine"
[2023-03-10] MEDS: DEXTROSE 5%-NACL 0.9% 1000 ML + KCL 40 MEQ 1,000 ML IV SCH (02:07)
[2023-03-10] MEDS: D50W 50 ml Abboject IV SCH ×3 (04:14→07:18)
[2023-03-10 05:14] LABS: Absolute Neutrophil Ct (ANC) 7.41 x10^3/uL (1.4-6.9); BASOPHIL % 0.6 % (0.0-0.4); Basophil (Absolute #) 0.06 x10^3/uL (0-0.4); Eosinophil % 0.3 % (0.00-5.0); Eosinophil (Absolute #) 0.03 x10^3/uL (0-0.5); Hemoglobin 12.2 g/dL (12.0-16.0); IMMATURE GRAN # 0.07 x10^3u/L (0.00-0.03); IMMATURE GRAN % 0.7 % (0.00-0.4); Lymphocyte (Absolute #) 1.29 x10^3/uL (1.0-4.6); Lymphocytes % 13.8 % (24.0-44.0); Mean Cell Volume 85.1 fL (78-100); Mean Corpuscular Hgb Concent. 30.5 g/dL (32-36); Mean Platelet Volume 10.1 fL (7.5-11.0); Monocyte (Absolute #) 0.52 x10^3/uL (0.0-1.3); Monocytes % 5.5 % (0.0-12.0); Neutrophil % 79.1 % (36.0-66.0); Platelet Count 323 x10^3/uL (150-450); Red Cell Distribution Width 14.6 % (11.5-14.0); White Blood Count 9.4 x10^3/uL (4.0-10.5)
[2023-03-10 05:42] LABS: ALBUMIN 3.8 g/dL (3.5-5.0); ANION GAP 9.5 MEQ/L (5-15); BILIRUBIN,TOTAL 0.4 mg/dL (0.2-1.3); Calcium 8.7 mg/dL (8.4-10.2); Creatinine 1 0.73 mg/dL (0.52-1.04); EST GLOMERULAR FILTRATION RATE 103.3 ML/MIN; MAGNESIUM 1.9 mg/dL (1.6-2.3); Potassium 4.3 mmol/L (3.5-5.1)
[2023-03-10] MEDS ORDERED: D50W 50 ml Abboject IV PRN (07:22)
[2023-03-10] MEDS: Effexor XR 75 MG PO SCH (10:19)
[2023-03-10] MEDS: TOPIRAMATE PO SCH ×2 (10:19→22:25)
[2023-03-10] MEDS: ENOXAPARIN SODIUM SQ SCH (10:19)
[2023-03-10] MEDS: Protonix 40MG Tablet PO SCH (10:19)
[2023-03-11 06:10] LABS: Hematocrit 43.5 % (35-47); Hemoglobin 13.3 g/dL (12.0-16.0); Mean Cell Volume 86.7 fL (78-100); Mean Corpuscular Hemoglobin 26.5 pg (26-32); Mean Corpuscular Hgb Concent. 30.6 g/dL (32-36); Mean Platelet Volume 9.9 fL (7.5-11.0); Platelet Count 321 x10^3/uL (150-450); Red Blood Count 5.02 x10^6/uL (4.1-5.4); Red Cell Distribution Width 14.6 % (11.5-14.0)
[2023-03-11 06:25] LABS: ALBUMIN 3.9 g/dL (3.5-5.0); ANION GAP 10.6 MEQ/L (5-15); BILIRUBIN,TOTAL 0.3 mg/dL (0.2-1.3); Creatinine 1 0.87 mg/dL (0.52-1.04); EST GLOMERULAR FILTRATION RATE 83.7 ML/MIN; Potassium 3.9 mmol/L (3.5-5.1); Total Protein 7.3 g/dL (6.3-8.2)
[2023-03-11 07:30] VITALS: BP 135/83; PULSE 88; RESP 17; TEMP 97; O2SAT 97
[2023-03-11] MEDS: DEXTROSE 5%-NACL 0.9% 1000 ML + KCL 40 MEQ 1,000 ML IV SCH (10:24)
[2023-03-11] MEDS: Effexor XR 75 MG PO SCH (10:25)
[2023-03-11] MEDS: TOPIRAMATE PO SCH (10:25)
[2023-03-11] MEDS: Protonix 40MG Tablet PO SCH (10:25)
[2023-03-11] MEDS: ENOXAPARIN SODIUM SQ SCH (10:25)
--- NOTE | 2023-03-11 12:04 | PCM.DS ---
Discharge Summary Date of Admission: 03/10/23 01:45 Date of Discharge: 03/11/23 Admitting Physician: BOBBY LEONE MD Primary Care Provider: VICKY FRAIRE DO Allergies Allergies cephalexin [From Keflex] Allergy (Verified 03/09/23 22:21) lamotrigine [From Lamictal] Allergy (Verified 03/09/23 22:21) Sulfa (Sulfonamide Antibiotics) Allergy (Verified 03/09/23 22:21) Hospital Summary - Hospital Course Hospital Course: 03/11/23 Ms. Ambriz is a 47 year old female with a past medical history significant for anxiety, seizures, and diabetes with recent diagnosis of pneumonia placed on oral antibiotics. She presented to the hospital after noticing that her sugars were dropping significantly down into the 40-50s. She tried to eat something sweet but her sugars continued to run low. No changes in dietary habits. After further evaluation her dexcom does not appear to working properly and is 50 points higher than our lab blood glucose, and 40 points higher than our accucheck machine. She has been taking metformin, Januvia, Lantus, and humalog s /s at home. She has not been on any of this since admission. She is wanting to go home. Explained she can remove the dexcom machine and she wants to leave it to show her PCP it is not working properly. She does have a home accucheck machine and advised her to use this at home and not trust the readings on the dexcom. Advised to hold the Lantus and only use the s/s insulin. Will give her a new s/s dosing. She is not to use humalog unless glucose is > 200. She is to f/u with Dr. Fraire this week. A1C was 7.89. She denies any further concerns at this time. - Vitals & Intake/Output Vital Signs: Vital Signs Temperature 97.0 F 03/11/23 07:29 Pulse Rate 88 03/11/23 07:29 Respiratory Rate 17 03/11/23 07:29 Blood Pressure 135/83 03/11/23 07:29 O2 Sat by Pulse Oximetry 97 03/11/23 07:29 Intake & Output: Intake & Output 03/08/23 03/09/23 03/10/23 03/11/23 11:59 11:59 11:59 11:59 Intake Total 739 820 Balance 739 820 Weight 104.4 kg 106.2 kg - Lab Result Diagrams: 03/11/23 05:35 03/11/23 05:35 Lab Results-Last 24 Hrs: Lab Results-Last 24 Hours 03/10/23 03/10/23 03/11/23 Range/Units 16:10 19:59 00:02 WBC (4.0-10.5) x10^3/uL RBC (4.1-5.4) x10^6/uL Hgb (12.0-16.0) g/dL Hct (35-47) % MCV (78-100) fL MCH (26-32) pg MCHC (32-36) g/dL RDW (11.5-14.0) % Plt Count (150-450) x10^3/uL MPV (7.5-11.0) fL Sodium (137-145) mmol/L Potassium (3.5-5.1) mmol/L Chloride (98-107) mmol/L Carbon Dioxide (22-30) mmol/L Anion Gap (5-15) MEQ/L BUN (7-17) mg/dL Creatinine (0.52-1.04) mg/dL Estimated GFR ML/MIN Glucose (74-106) mg/dL POC Glucometer 164 H 191 H 140 H (74 to 106) mg/dL Calcium (8.4-10.2) mg/dL Total Bilirubin (0.2-1.3) mg/dL AST (14-36) U/L ALT (0-35) U/L Alkaline Phosphatase (38-126) U/L Serum Total Protein (6.3-8.2) g/dL Albumin (3.5-5.0) g/dL 03/11/23 03/11/23 03/11/23 Range/Units 05:27 05:35 05:35 WBC 7.0 (4.0-10.5) x10^3/uL RBC 5.02 (4.1-5.4) x10^6/uL Hgb 13.3 (12.0-16.0) g/dL Hct 43.5 (35-47) % MCV 86.7 (78-100) fL MCH 26.5 (26-32) pg MCHC 30.6 L (32-36) g/dL RDW 14.6 H (11.5-14.0) % Plt Count 321 (150-450) x10^3/uL MPV 9.9 (7.5-11.0) fL Sodium 135 L (137-145) mmol/L Potassium 3.9 (3.5-5.1) mmol/L Chloride 106 (98-107) mmol/L Carbon Dioxide 22 (22-30) mmol/L Anion Gap 10.6 (5-15) MEQ/L BUN 17 (7-17) mg/dL Creatinine 0.87 (0.52-1.04) mg/dL Estimated GFR 83.7 ML/MIN Glucose 145 H (74-106) mg/dL POC Glucometer 158 H (74 to 106) mg/dL Calcium 9.0 (8.4-10.2) mg/dL Total Bilirubin 0.30 (0.2-1.3) mg/dL AST 20 (14-36) U/L ALT 20 (0-35) U/L Alkaline Phosphatase 59 (38-126) U/L Serum Total Protein 7.3 (6.3-8.2) g/dL Albumin 3.9 (3.5-5.0) g/dL 03/11/23 Range/Units 08:24 WBC (4.0-10.5) x10^3/uL RBC (4.1-5.4) x10^6/uL Hgb (12.0-16.0) g/dL Hct (35-47) % MCV (78-100) fL MCH (26-32) pg MCHC (32-36) g/dL RDW (11.5-14.0) % Plt Count (150-450) x10^3/uL MPV (7.5-11.0) fL Sodium (137-145) mmol/L Potassium (3.5-5.1) mmol/L Chloride (98-107) mmol/L Carbon Dioxide (22-30) mmol/L Anion Gap (5-15) MEQ/L BUN (7-17) mg/dL Creatinine (0.52-1.04) mg/dL Estimated GFR ML/MIN Glucose (74-106) mg/dL POC Glucometer 141 H (74 to 106) mg/dL Calcium (8.4-10.2) mg/dL Total Bilirubin (0.2-1.3) mg/dL AST (14-36) U/L ALT (0-35) U/L Alkaline Phosphatase (38-126) U/L Serum Total Protein (6.3-8.2) g/dL Albumin (3.5-5.0) g/dL Micro Results-Entire Visit: Accuchecks Date 03/11/23 Date 03/11/23 Date 03/11/23 Date 03/10/23 Date 03/10/23 Time 05:31 Time 05:31 Time 00:00 Time 20:00 Time 17:03 Discharge Exam General Appearance: obese Neurologic Exam: alert, oriented x 3, cooperative, normal mood/affect, nml cerebellar function, sensation nml, No motor deficits Eye Exam: PERRL, EOMI, eyes nml inspection Ears, Nose, Throat Exam: normal ENT inspection, pharynx normal, moist mucous membranes Neck Exam: normal inspection, non-tender, supple, full range of motion Respiratory Exam: normal breath sounds, lungs clear, No respiratory distress Cardiovascular Exam: regular rate/rhythm, normal heart sounds Gastrointestinal/Abdomen Exam: soft, No tenderness, No mass Pelvic Exam: deferred Rectal Exam: deferred Back Exam: normal inspection, normal range of motion, No CVA tenderness, No vertebral tenderness Extremity Exam: normal inspection, normal range of motion Skin Exam: normal color, warm, dry Final Diagnosis/Problem List - Final Discharge Diagnosis/Problem (1) Hypoglycemia Current Visit: Yes Status: Acute Assessment & Plan: - resolved - advised to use home accucheck machine not dexcom - There is an error with the readings of the dexcom that was placed this week- glucose reading 40-50 points higher. - Hypoglycemia is most likely r/t dexcom error therefore giving herself to much insulin - Stop Lantus at home - New s/s ordered Code(s): E16.2 - HYPOGLYCEMIA, UNSPECIFIED (2) DM type 2 (diabetes mellitus, type 2) Current Visit: Yes Status: Chronic Assessment & Plan: - Uncontrolled - all meds held while IP - A1C 7.89 (3) Chronic kidney disease, stage 2 (mild) Current Visit: Yes Status: Acute Assessment & Plan: - at baseline Code(s): N18.2 - CHRONIC KIDNEY DISEASE, STAGE 2 (MILD) (4) Hypokalemia Current Visit: Yes Status: Acute Assessment & Plan: - resolved K+ 3.9 Code(s): E87.6 - HYPOKALEMIA (5) Obesity, morbid, BMI 40.0-49.9 Current Visit: Yes Status: Acute Assessment & Plan: - advised well balanced ADA diet and exercise Code(s): E66.01 - MORBID (SEVERE) OBESITY DUE TO EXCESS CALORIES - Discharge Discharge Date: 03/11/23 Disposition: Home, Self-Care Condition: Stable Prescriptions: Continue Metformin HCl 1000 mg [Glucophage 1000 MG] 1,000 mg PO BID Topiramate 100 mg [Topamax 100 MG] 200 mg PO BID Sitagliptin Phosphate [Januvia] 100 mg PO HS Cetirizine HCl [Zyrtec] 10 mg PO HS Fenofibrate,Micronized [Fenofibrate] 134 mg PO DAILY Meloxicam 7.5 mg PO BID PRN PRN Reason: Pain Ergocalciferol (Vitamin D2) [Vitamin D2] 1,250 mcg PO WEEKLY Fluoxetine HCl 20 mg PO DAILY EPINEPHrine [Epipen 2-Avni] 0.3 mg IM PC PRN 1 Days #0.3 ml PRN Reason: Allergies Atorvastatin Calcium [Lipitor 40Mg] 40 mg PO DAILY Venlafaxine HCl [Venlafaxine HCl ER] 150 mg PO DAILY Discontinued Insulin Glargine,Hum.rec.anlog [Basaglar Kwikpen U-100] 50 units SQ DAILY PRN Doxycycline Hyclate 100 mg [Vibramycin 100 MG] 100 mg PO BID Additional Instructions: New Humalog sliding scale LOW DOSE: 70-200 = NO INSULIN 201-250 = 2 UNITS 251-300 = 4 UNITS 301-350 = 6 UNITS 351-400 = 8 UNITS 401-450 = 10 UNITS 451-500 = 12 UNITS >500, VERIFY THEN CALL MD Follow up with: VICKY FRAIRE DO [Primary Care Provider] -
== END 2023-03-11 13:02 | disposition home or self-care (01) ==
LOC: ED 22:18 → MED SURG 03-10 01:45
PROVIDERS: ADMIT Internal Medicine Nephrology; ATTEND Internal Medicine Nephrology
DX: E16.2 Hypoglycemia, unspecified (principal); E11.22 Type 2 diabetes mellitus with diabetic chronic kidney disease; N18.2 Chronic kidney disease, stage 2 (mild); E87.6 Hypokalemia; E66.01 Morbid (severe) obesity due to excess calories; Z79.899 Other long term (current) drug therapy; Z20.828 Contact with and (suspected) exposure to other viral communicable diseases
CPT/HCPCS: 36415; 80053; 82947; 83036; 83735; 85025; 85027; 94760; 96374; 99285; G0378; J1650; J3480; Q3014; A9270-GY

== ENCOUNTER 2023-05-17 15:32 | Emergency (ER) | payer OTHER ==
--- NOTE | 2023-05-17 15:47 | ERPHSYRPT ---
- History of Present Illness Time Seen by Provider: 05/17/23 15:47 Source: patient, family Exam Limitations: no limitations Physician History: This is an overweight 47-year-old white female patient who has been on 4 different antibiotics in the last 6 weeks to treat a left ear infection. Patient is being followed by licensed nuclear operator and in the next few weeks there is a plan for her to have myringotomy tube placed. Patient also has a significant history of seizure disorder, anxiety issues, diabetes and hyperlipidemia. Patient did not recall that she had 3 seizure episodes of a brief earlier today. Patient actually was here in the hospital obtaining labs and getting an EKG. However, she did not come into the emergency department at that time. She returns to the emergency department with her mother. Patient is awake alert and oriented and her vital signs are stable. She is afebrile Timing/Duration: gradual onset Severity: mild (Cefdinir antibiotic) Prearrival Treatment: prescription meds Modifying Factors: Improves With: nothing Associated Symptoms: ear pain (L) (For 6 weeks) Allergies/Adverse Reactions: cephalexin [From Keflex] Allergy (Verified 05/17/23 15:50) lamotrigine [From Lamictal] Allergy (Verified 05/17/23 15:50) Sulfa (Sulfonamide Antibiotics) Allergy (Verified 05/17/23 15:50) Home Medications: Metformin HCl 1000 mg [Glucophage 1000 MG] 1,000 mg PO BID 07/25/14 [History] Sitagliptin Phosphate [Januvia] 100 mg PO HS 10/07/14 [History] Topiramate 100 mg [Topamax 100 MG] 200 mg PO BID 10/07/14 [History] Cetirizine HCl [Zyrtec] 10 mg PO HS 04/18/16 [History] Ergocalciferol (Vitamin D2) [Vitamin D2] 1,250 mcg PO WEEKLY 08/14/20 [History] Fenofibrate,Micronized [Fenofibrate] 134 mg PO DAILY 08/14/20 [History] Fluoxetine HCl 20 mg PO DAILY 08/14/20 [History] Meloxicam 7.5 mg PO BID PRN 08/14/20 [History] Atorvastatin Calcium [Lipitor 40Mg] 40 mg PO DAILY 08/19/22 [History] Venlafaxine HCl [Venlafaxine HCl ER] 150 mg PO DAILY 03/09/23 [History] Hx Tetanus, Diphtheria Vaccination/Date Given: Yes Hx Influenza Vaccination/Date Given: No Hx Pneumococcal Vaccination/Date Given: No Travel Risk - International Travel Have you traveled outside of the country in past 3 weeks: No - Coronavirus Screening Are you exhibiting any of the following symptoms?: No Close contact with a COVID-19 positive Pt in past 14-21 Days: No - Vaccine Status Have you recieved a Covid-19 vaccination: No - Review of Systems Constitutional: No Symptoms Eyes: No Symptoms Ears, Nose, & Throat: Ear Pain Respiratory: No Symptoms (Left) Cardiac: No Symptoms Abdominal/Gastrointestinal: No Symptoms Genitourinary Symptoms: No Symptoms Musculoskeletal: No Symptoms Skin: No Symptoms Neurological: Seizure (Breakthrough seizure earlier today. Patient does not recall. Mother did not witness. Phone call to the patient's mother from the patient's daughter stating this occurred earlier today) Psychological: No Symptoms Endocrine: No Symptoms Hematologic/Lymphatic: No Symptoms Immunological/Allergic: No Symptoms All Other Systems: Reviewed and Negative - Past Medical History Pertinent Past Medical History: Yes Neurological History: Seizures ENT History: No Pertinent History Cardiac History: No Pertinent History Respiratory History: No Pertinent History Endocrine Medical History: Diabetes Type II Musculoskeletal History: No Pertinent History GI Medical History: No Pertinent History History: No Pertinent History Psycho-Social History: Anxiety Female Reproductive Disorders: No Pertinent History Other Medical History: heart murmer - Past Surgical History Past Surgical History: Yes Neuro Surgical History: No Pertinent History Cardiac: No Pertinent History Respiratory: No Pertinent History Gastrointestinal: Cholecystectomy Genitourinary: No Pertinent History Musculoskeletal: No Pertinent History Female Surgical History: Section Other Surgical History: c-sec x2. tubal 05/04/18 pt states she had her tubes removed - Social History Smoking Status: Never smoker Exposure to second hand smoke: No Drug Use: none Patient Lives Alone: No - Nursing Vital Signs Nursing Vital Signs: Initial Vital Signs Temperature 97.0 F 05/17/23 15:59 Pulse Rate 97 H 05/17/23 15:59 Respiratory Rate 16 05/17/23 15:59 Blood Pressure 127/69 05/17/23 15:59 O2 Sat by Pulse Oximetry 98 05/17/23 15:59 Pain Scale Pain Intensity 9 - Physical Exam General Appearance: no apparent distress, alert, anxiety, obese Eye Exam: bilateral eye: normal inspection, PERRL, EOMI Ear Exam: bilateral ear: auricle normal, canal normal, TM normal Nasal Exam: normal inspection Throat Exam: normal, pharynx normal Neck Exam: normal inspection, tender lateral Cardiovascular/Respiratory Exam: chest non-tender (Soft tissue just below the patient's left ear), normal breath sounds, regular rate/rhythm, heart sounds normal, no respiratory distress Abdominal Exam: non-tender Neurologic Exam: alert, oriented x 3, cooperative, packaging technician II-XII nml as tested, nml cerebellar function, nml station & gait, sensation nml Skin Exam: normal color, warm, dry SpO2 Interpretation: normal O2 Delivery: Room Air - Course Nursing assessment & vital signs reviewed: Yes Ordered Tests: Active Orders 24 hr Category Date Time Status HEAD WITHOUT CONTRAST [CT] Stat Exams 05/17/23 16:32 Taken NECK WO CONTRAST [CT] Stat Exams 05/17/23 16:32 Completed - Progress Progress: unchanged Progress Note: 05/17/23 16:46 This patient's medical issue is 1 of low to moderate complexity. The level of complexity in the workup performed is based on review of the patient's past medical history, review the patient's medication list, review the patient's drug allergy list, history of present illness and physical findings on examination. The workup in this patient includes CT scan of the head and CT scan of neck soft tissue. We are looking for any intracranial abnormality or abscess pockets in the soft tissue left side of neck. Patient, patient's mother and myself had discussion. We discussed the potential findings on the studies. If the studies are normal, patient will continue the antibiotics as prescribed as well as her antiseptic medication. She will call her prescribing provider and/or neurologist tomorrow morning, 05/18/2023 to advise them of today's symptoms and findings on her radiographic studies. 05/17/23 17:35 CT scan of the head without contrast was interpreted by the radiologist. I reviewed the impression. There is pansinusitis present. There is evidence of left otitis media. CT scan of the soft tissue of the neck shows pansinusitis with no evidence of any abscess. This study was interpreted by the radiologist and I reviewed the impression. Counseled pt/family regarding: diagnosis, need for follow-up, rad results Medical Desision Making - Independent Historian Additional History obtained from: Mother - Diagnostic Testing Diagnostic test were ordered, analyzed, and reviewed by me: Yes Radiological Interpretation: Reviewed by me, Teleradiologist Report - Risk of complications Low Risk: Low risk of morbidity from additional dx testing or treatment - Departure Departure Disposition: Home Clinical Impression: Left otitis media, Pansinusitis Condition: Stable Critical Care Time: No Referrals: VICKY FRAIRE DO [Primary Care Provider] - Follow up/PCP as directed Additional Instructions: Continue your antibiotics as prescribed. Call your licensed nuclear operator as well as your physician who is prescribing your antiseizure medication tomorrow, 05/18/2023, to obtain further instructions and management of your ear infection, sinus infection and seizure issues.
[2023-05-17 16:01] VITALS: RESP 16; TEMP 97
[2023-05-17 17:15] VITALS: PULSE 109
--- NOTE | 2023-05-17 17:19 | XRAY ---
Indication: Mini seizures. Ear infection 6 weeks. Multiple contiguous axial images obtained through the neck without contrast. Comparison: None Parotid and submandibular glands are symmetric. No pathologic lymphadenopathy. Major arteries/veins are normal in course and caliber. Supra and infraglottic airway widely patent. No acute fracture, suspicious bony lesions, or radiopaque foreign body. Normal cervical alignment. Mild/moderate mucosal thickening all paranasal sinuses with bilateral maxillary sinus fluid leveling. Lung apices are clear. Impression: Pansinusitis. Remaining CT neck without contrast is negative.
[2023-05-17 17:37] VITALS: BP 130/81; O2SAT 98
--- NOTE | 2023-05-18 09:19 | XRAY ---
Indication: Mini seizures. Ear infection 6 weeks. Multiple contiguous axial images obtained through the head without contrast. Comparison: None Normal appearing brain parenchyma, ventricles, and bony calvarium. Mild/moderate mucosal thickening all paranasal sinuses with bilateral maxillary sinus fluid leveling. Partial opacification left middle ear presumably inflammatory. Mastoid air cells are clear. Impression: Pansinusitis and left otitis media. Remaining CT head without contrast exam is normal.
== END 2023-05-17 17:52 | disposition home or self-care (01) ==
LOC: ED 15:32
DX: H66.92 Otitis media, unspecified, left ear (principal); J32.4 Chronic pansinusitis; G40.909 Epilepsy, unspecified, not intractable, without status epilepticus; E11.9 Type 2 diabetes mellitus without complications; E78.5 Hyperlipidemia, unspecified; Z79.84 Long term (current) use of oral hypoglycemic drugs; Z79.899 Other long term (current) drug therapy; Z28.310 Unvaccinated for COVID-19
CPT/HCPCS: 70450; 70490; 99283

== ENCOUNTER 2024-03-02 15:10 | Emergency (ER) | payer BC, OTHER ==
[2024-03-02 15:19] VITALS: RESP 20; TEMP 96.9
[2024-03-02] MEDS ORDERED: Sodium Chloride 0.9% 1000 ML 1,000 ML ONE ×2 (15:36→17:23)
[2024-03-02] MEDS: Sodium Chloride 0.9% 1000 ML 1,000 ML IV STA ×2 (15:38→17:26)
[2024-03-02 15:41] LABS: Absolute Neutrophil Ct (ANC) 6.18 x10^3/uL (1.56-6.13); BASOPHIL % 0.6 % (0.1-1.2); Basophil (Absolute #) 0.06 x10^3/uL (0.01-0.08); Eosinophil % 1.1 % (0.7-5.8); Eosinophil (Absolute #) 0.11 x10^3/uL (0.04-0.36); Hematocrit 50.4 % (34.1-44.9); IMMATURE GRAN # 0.03 x10^3u/L (0.001-0.031); IMMATURE GRAN % 0.3 % (0.001-0.429); Lymphocyte (Absolute #) 2.75 x10^3/uL (1.18-3.74); Lymphocytes % 28.2 % (19.3-51.7); Mean Cell Volume 83.6 fL (79.4-94.8); Mean Corpuscular Hemoglobin 26.5 pg (25.6-32.2); Mean Corpuscular Hgb Concent. 31.7 g/dL (32.2-35.5); Monocyte (Absolute #) 0.62 x10^3/uL (0.24-0.86); Monocytes % 6.4 % (4.7-12.5); Neutrophil % 63.4 % (34.0-71.1); Platelet Count 307 x10^3/uL (182-369); Red Blood Count 6.03 x10^6/uL (3.93-5.22); Red Cell Distribution Width 16.3 % (11.7-14.4); White Blood Count 9.8 x10^3/uL (3.98-10.04)
[2024-03-02 15:55] LABS: ALBUMIN 4.8 g/dL (3.5-5.0); ANION GAP 17.5 MEQ/L (5-15); BILIRUBIN,TOTAL 0.6 mg/dL (0.2-1.3); Calcium 9.5 mg/dL (8.4-10.2); Creatinine 1 0.78 mg/dL (0.52-1.04); EST GLOMERULAR FILTRATION RATE 94.8 ML/MIN; Potassium 3.9 mmol/L (3.5-5.1); Total Protein 8.8 g/dL (6.3-8.2)
--- NOTE | 2024-03-02 16:08 | ERPHSYRPT ---
- History of Present Illness Source: patient Exam Limitations: no limitations Patient Subjective Stated Complaint: Pt states "I have been vomiting for the past three days. I cannot keep anything down." Triage Nursing Assessment: Pt presented alert and oriented X 3, skin pwd. Pt ambulates with an upright steady gait, able to speak in clear full sentenes. Pt resting comfortabl on the bed. Timing/Duration: day(s) (Three days) Severity: moderate Associated Symptoms: nausea, vomiting Hx Tetanus, Diphtheria Vaccination/Date Given: Yes Hx Influenza Vaccination/Date Given: No Hx Pneumococcal Vaccination/Date Given: No Immunizations Up to Date: No <VEGA OSORIO - Last Filed: 03/02/24 16:50> <RAFA ALMAGUER - Last Filed: 03/02/24 18:19> - History of Present Illness Time Seen by Provider: 03/02/24 16:06 Physician History: Pt states "I have been vomiting for the past three days. I cannot keep anything down." (DEVONVEGA) Allergies/Adverse Reactions: cephalexin [From Keflex] Allergy (Verified 05/17/23 15:50) lamotrigine [From Lamictal] Allergy (Verified 05/17/23 15:50) Sulfa (Sulfonamide Antibiotics) Allergy (Verified 05/17/23 15:50) Home Medications: Metformin HCl 1000 mg [Glucophage 1000 MG] 1,000 mg PO BID 07/25/14 [History] Topiramate 100 mg [Topamax 100 MG] 200 mg PO BID 10/07/14 [History] Cetirizine HCl [Zyrtec] 10 mg PO HS 04/18/16 [History] Ergocalciferol (Vitamin D2) [Vitamin D2] 1,250 mcg PO WEEKLY 08/14/20 [History] Meloxicam 7.5 mg PO BID PRN 08/14/20 [History] Atorvastatin Calcium [Lipitor 40Mg] 40 mg PO DAILY 08/19/22 [History] Venlafaxine HCl [Venlafaxine HCl ER] 150 mg PO DAILY 03/09/23 [History] Dapagliflozin Propanediol [Farxiga] 1 tab PO DAILY 03/02/24 [History] Insulin Glargine,Hum.rec.anlog [Lantus] 100 unit SQ 03/02/24 [History] Insulin Lispro [Humalog Kwikpen] 100 unit SQ 03/02/24 [History] Travel Risk - International Travel Have you traveled outside of the country in past 3 weeks: No - Emerging Infectious Disease Are you exhibiting symptoms associated with any current EIDs: Yes Symptoms: Vomitting <DEVON,VEGA - Last Filed: 03/02/24 16:50> - Review of Systems Constitutional: No Fever, No Chills Eyes: No Symptoms Ears, Nose, & Throat: No Symptoms Respiratory: No Cough, No Dyspnea Cardiac: No Chest Pain, No Edema, No Syncope Abdominal/Gastrointestinal: Nausea, Vomiting, No Abdominal Pain, No Diarrhea Genitourinary Symptoms: No Dysuria Musculoskeletal: No Back Pain, No Neck Pain Skin: No Rash Neurological: No Dizziness, No Focal Weakness, No Sensory Changes Psychological: No Symptoms Endocrine: No Symptoms All Other Systems: Reviewed and Negative <DEVON,VEGA - Last Filed: 03/02/24 16:50> - Past Medical History Pertinent Past Medical History: Yes Neurological History: Seizures ENT History: No Pertinent History Cardiac History: No Pertinent History Respiratory History: No Pertinent History Endocrine Medical History: Diabetes Type II Musculoskeletal History: No Pertinent History GI Medical History: No Pertinent History History: No Pertinent History Psycho-Social History: Anxiety Female Reproductive Disorders: No Pertinent History Other Medical History: heart murmer - Past Surgical History Past Surgical History: Yes Neuro Surgical History: No Pertinent History Cardiac: No Pertinent History Respiratory: No Pertinent History Gastrointestinal: Cholecystectomy Genitourinary: No Pertinent History Musculoskeletal: No Pertinent History Female Surgical History: Section Other Surgical History: c-sec x2. tubal 05/04/18 pt states she had her tubes removed - Female History Hx Last Menstrual Period: 02/08/2024 Hx Now: No - Social History Smoking Status: Never smoker Exposure to second hand smoke: No Drug Use: none Patient Lives Alone: No - Social Determinants of Health Will the patient participate in the screening: Yes Do you worry about a steady place to live?: No Do you have any problems with any of the following?: No known problems In the past 12 months,have you had to go without utilities?: No Transportation Issues: No Has anyone in your support network made you feel unsafe?: No Have you or anyone in your house had to go without enough: No <DEVON,VEGA - Last Filed: 03/02/24 16:50> - Physical Exam General Appearance: no apparent distress, alert Eye Exam: PERRL/EOMI, eyes nml inspection Ears, Nose, Throat Exam: normal ENT inspection, TMs normal, pharynx normal, moist mucous membranes Neck Exam: normal inspection, non-tender, supple, full range of motion Respiratory Exam: normal breath sounds, lungs clear, No respiratory distress Cardiovascular Exam: regular rate/rhythm, normal heart sounds, normal peripheral pulses Gastrointestinal/Abdomen Exam: soft, normal bowel sounds, No tenderness, No mass Back Exam: normal inspection, normal range of motion, No CVA tenderness, No vertebral tenderness Extremity Exam: normal inspection, normal range of motion, pelvis stable Neurologic Exam: alert, oriented x 3, cooperative, normal mood/affect, nml cerebellar function, nml station & gait, sensation nml, No motor deficits Skin Exam: normal color, warm, dry, No rash Lymphatic Exam: No adenopathy SpO2: 98 <DEVON,VEGA - Last Filed: 03/02/24 16:50> - Nursing Vital Signs Nursing Vital Signs: Initial Vital Signs Temperature 96.9 F 03/02/24 15:14 Pulse Rate 96 H 03/02/24 15:14 Respiratory Rate 20 03/02/24 15:14 Blood Pressure 143/105 03/02/24 15:14 O2 Sat by Pulse Oximetry 98 03/02/24 15:14 Pain Scale Pain Intensity 0 - Course Nursing assessment & vital signs reviewed: Yes <DEVON,VEGA - Last Filed: 03/02/24 16:50> Ordered Tests: Active Orders 24 hr Category Date Time Status AMYLASE Stat Lab 03/02/24 15:35 Completed CBC W DIFF Stat Lab 03/02/24 15:35 Completed CMP Stat Lab 03/02/24 15:35 Completed LIPASE Stat Lab 03/02/24 15:35 Completed UA W/RFX UR CULTURE Stat Lab 03/02/24 15:26 Ordered Medication Summary Generic Name Dose Route Start Last Admin Trade Name Freq PRN Reason Stop Dose Admin Sodium Chloride 1,000 mls @ 999 mls/hr 03/02/24 17:19 03/02/24 17:26 Sodium Chloride 0.9% 1000 Ml IV 03/02/24 18:19 999 mls/hr .Q1H1M STA Administration Discontinued Medications Generic Name Dose Route Start Last Admin Trade Name Tremaine PRN Reason Stop Dose Admin Sodium Chloride 1,000 mls @ 999 mls/hr 03/02/24 15:26 03/02/24 17:02 Sodium Chloride 0.9% 1000 Ml IV 03/02/24 16:26 Infused .Q1H1M STA Infusion Sodium Chloride Confirm 03/02/24 15:36 Sodium Chloride 0.9% 1000 Ml Administered 03/02/24 15:37 Dose 1,000 mls @ ud .ROUTE .STK-MED ONE Sodium Chloride Confirm 03/02/24 17:23 Sodium Chloride 0.9% 1000 Ml Administered 03/02/24 17:24 Dose 1,000 mls @ ud .ROUTE .STK-MED ONE Ondansetron HCl 4 mg 03/02/24 16:08 03/02/24 16:19 Ondansetron Hcl 4 Mg/2 Ml Vial IV 03/02/24 16:09 4 mg STAT ONE Administration Ondansetron HCl Confirm 03/02/24 16:18 Ondansetron Hcl 4 Mg/2 Ml Vial Administered 03/02/24 16:19 Dose 4 mg .ROUTE .STK-MED ONE Pantoprazole Sodium 40 mg 03/02/24 16:08 03/02/24 16:21 Pantoprazole 40 Mg Vial IV 03/02/24 16:09 40 mg STAT ONE Administration Pantoprazole Sodium Confirm 03/02/24 16:18 Pantoprazole 40 Mg Vial Administered 03/02/24 16:19 Dose 40 mg IV .STK-MED ONE Lab/Rad Data: Laboratory Result Diagrams 03/02/24 15:35 03/02/24 15:35 Laboratory Results 03/02/24 03/02/24 03/02/24 Range/Units 17:15 15:35 15:35 WBC 9.8 (3.98-10.04) x10^3/uL RBC 6.03 H (3.93-5.22) x10^6/uL Hgb 16.0 H (11.2-15.7) g/dL Hct 50.4 H (34.1-44.9) % MCV 83.6 (79.4-94.8) fL MCH 26.5 (25.6-32.2) pg MCHC 31.7 L (32.2-35.5) g/dL RDW 16.3 H (11.7-14.4) % Plt Count 307 (182-369) x10^3/uL MPV 10.0 (9.4-12.3) fL Gran % 63.4 (34.0-71.1) % Immature Gran % (Auto) 0.3 (0.001-0.429) % Nucleat RBC Rel Count 0.0 (0.00-0.2) % Eos # (Auto) 0.11 (0.04-0.36) x10^3/uL Immature Gran # (Auto) 0.03 (0.001-0.031) x10^3u/L Absolute Lymphs (auto) 2.75 (1.18-3.74) x10^3/uL Absolute Monos (auto) 0.62 (0.24-0.86) x10^3/uL Absolute Nucleated RBC 0.00 (0.00-0.012) x10^3u/L Lymphocytes % 28.2 (19.3-51.7) % Monocytes % 6.4 (4.7-12.5) % Eosinophils % 1.1 (0.7-5.8) % Basophils % 0.6 (0.1-1.2) % Absolute Granulocytes 6.18 H (1.56-6.13) x10^3/uL Basophils # 0.06 (0.01-0.08) x10^3/uL Sodium 139 (135-145) mmol/L Potassium 3.9 (3.5-5.1) mmol/L Chloride 108 H (98-107) mmol/L Carbon Dioxide 17 L (22-30) mmol/L Anion Gap 17.5 H (5-15) MEQ/L BUN 23 H (7-17) mg/dL Creatinine 0.78 (0.52-1.04) mg/dL Estimated GFR 94.8 ML/MIN Glucose 148 H (74-106) mg/dL Calcium 9.5 (8.4-10.2) mg/dL Total Bilirubin 0.60 (0.2-1.3) mg/dL AST 37 H (14-36) U/L ALT 36 H (0-35) U/L Alkaline Phosphatase 73 (38-126) U/L Serum Total Protein 8.8 H (6.3-8.2) g/dL Albumin 4.8 (3.5-5.0) g/dL Amylase 49 (30-110) U/L Lipase 75 (23-300) U/L Influenza Type A Ag NEGATIVE (NEGATIVE) Influenza Type B Ag NEGATIVE (NEGATIVE) RSV (PCR) NEGATIVE (NEGATIVE) SARS-CoV-2 (PCR) NEGATIVE (NEGATIVE) - Progress Progress: improved <VEGA OSORIO - Last Filed: 03/02/24 16:50> - Progress Counseled pt/family regarding: lab results, diagnosis, need for follow-up <RAFA ALMAGUER - Last Filed: 03/02/24 18:19> - Progress Progress Note: 03/02/24 18:17 I interpreted the patient's laboratory data results. Based on the laboratory data results, the patient does not have an acute, emergent medical issue. (RAFA ALMAGUER) Medical Desision Making - Risk of complications Low Risk: Low risk of morbidity from additional dx testing or treatment <RAFA ALMAGUER - Last Filed: 03/02/24 18:19> <VEGA OSORIO - Last Filed: 03/02/24 16:50> - Departure Departure Disposition: Home Critical Care Time: No <RAFA ALMAGUER - Last Filed: 03/02/24 18:19> - Departure Clinical Impression: Vomiting, Viral syndrome Condition: Stable Referrals: VICKY FRAIRE DO [Primary Care Provider] - Follow up/PCP as directed Additional Instructions: Drink plenty of clear liquids before advancing your diet. Avoid fatty greasy spicy foods. Call your primary care provider on 03/04/2024 to make arrangements for a follow-up appointment to be seen in the next 3 to 5 days Prescriptions: Ondansetron ODT 4 MG [Zofran Odt 4 mg] 4 mg PO Q6H PRN PRN #10 tablet PRN Reason: Vomiting
[2024-03-02] MEDS ORDERED: PROTONIX 40 MG IV IV ONE (16:18)
[2024-03-02] MEDS ORDERED: Zofran 4 MG/2 ML VIAL ONE (16:18)
[2024-03-02] MEDS: Zofran 4 MG/2 ML VIAL IV ONE (16:19)
[2024-03-02] MEDS: PROTONIX 40 MG IV IV ONE (16:21)
[2024-03-02 17:54] LABS: INFLUENZA A NEGATIVE (NEGATIVE); INFLUENZA B NEGATIVE (NEGATIVE); RESPIRATORY SYNCTIAL VIRUS NEGATIVE (NEGATIVE); SARS-CoV-2 Xpert Express NEGATIVE (NEGATIVE)
[2024-03-02 17:55] VITALS: BP 156/103; PULSE 85; O2SAT 98
== END 2024-03-02 18:31 | disposition home or self-care (01) ==
LOC: ED 15:10
DX: B34.9 Viral infection, unspecified (principal); R11.2 Nausea with vomiting, unspecified
CPT/HCPCS: 0241U; 36415; 80053; 82150; 83690; 85025; 96360; 96374; 96375; 99283; 99284; J2405